=== PATIENT | male | born 1975 ===

== ENCOUNTER 2020-03-10 14:53 | Outpatient (REF) | payer OTHER, SELFPAY ==
--- NOTE | 2020-03-10 15:53 | MHC.AU.P13 ---
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 Patient is nonverbal. He was accompanied by a staff member today. Has hearing been tested previously?: Yes Previous Hearing Test Results: [facility] – [place], 10/16/18- Borderline normal hearing levels 250-1000 Hz, sloping to a moderate sensorineural high-frequency hearing loss bilaterally. Ear History: History of Ear Wax Buildup: Both Ears Medical History: Medical History: Developmental Disorder/Delay Diabetes Heart Problems Allergies: Seasonal allergies, scallops/shellfish Otoscopy: Right Ear: Unremarkable Left Ear: Unremarkable Tympanometry: Right Ear: Normal Middle Ear System (Type A) Left Ear: Normal Middle Ear System (Type A) Otoacoustic Emissions Frequency Range Used: 1962-9049 Hz Right Ear Results: Reduced Emissions Absent Emissions (Other): Patient breathing heavily during OAE testing, causing noise interference. Analysis: Reduced/Absent emissions suggest cochlear dysfunction High noise floor present due to movement/vocalizations Left Ear Results: Reduced Emissions Absent Emissions Other : Patient breathing heavily during OAE testing, causing noise interference. Analysis: Reduced/Absent emissions suggest cochlear dysfunction High noise floor present due to movement/vocalizations Hearing Evaluation: Transducer(s) Used: Insert Earphones Soundfield Method: Visual Reinforcement Audiometry (VRA) Stimuli Used: FRESH Noise Soundfield (At Least the Better Ear): Description of Hearing: Responses in the normal range at 500 Hz, and in the mild hearing loss range from 1138-8800 Hz for at least the better ear. Attempted with insert headphones initially, but patient could not be conditioned to VRA under headphones. Speech Awareness Threshold (SAT): Soundfield (At Least the Better Ear): 20 dBHL for at least the better ear Comparison: Compared to the most recent evaluation: Hearing is stable. Recommendations: Recommendations: Audiological re-evaluation in one year. Diagnosis: Primary Diagnosis: H90.3 Bilateral Sensorineural Hearing Loss Services Performed: Services Performed: Visual Reinforcement Audiometry (CPT 31434) Diagnostic Otoacoustic Emissions (CPT 10753, 26+TC) Tympanometry (CPT 85512) Signature: Provider: Ias Jacobs, CCC-A
== END 2020-03-10 14:54 | disposition home or self-care (01) ==
LOC: HO.SH 14:53
PROVIDERS: PCP Internal Medicine Geriatric Medicine; Visit Provider Internal Medicine Geriatric Medicine
DX: H90.3 Sensorineural hearing loss, bilateral (principal)
CPT/HCPCS: 92567; 92579; 92588

== ENCOUNTER 2020-03-14 15:46 | Outpatient (REF) | payer OTHER, SELFPAY ==
--- NOTE | 2020-03-14 16:01 | XR_ITS ---
EXAMINATION: XR CHEST CLINICAL INFORMATION: Cough. COMPARISON: Chest x-ray 02/25/2020 TECHNIQUE: 2 views of the chest were obtained. FINDINGS: No significant abnormality is noted involving the heart, lungs, mediastinum, bony thorax or soft tissues. IMPRESSION: Unremarkable examination.
== END 2020-03-14 15:47 | disposition home or self-care (01) ==
LOC: HO.XRAY 15:46
PROVIDERS: PCP Internal Medicine; Visit Provider Internal Medicine
DX: R05 Cough (principal)
CPT/HCPCS: 71046

== ENCOUNTER → 2020-04-13 15:32 | Outpatient (BNVA) | payer OTHER, SELFPAY | PROVIDERS: PCP Internal Medicine; Referring Provider Internal Medicine; Visit Provider Hospitalist | DX: Z76.89 Persons encountering health services in other specified circumstances (principal) ==

== ENCOUNTER 2020-05-19 07:46 | Outpatient (REF) | payer OTHER, SELFPAY ==
[2020-05-19 08:17] LABS: MANUAL DIFF FLAG NO
[2020-05-19 08:22] LABS: Basophils Percent Auto 0.8 % (0-2); Eosinophils Absolute Auto 0.2 X10*3/uL (0.0-0.4); Eosinophils Percent Auto 3.5 % (0-4); Hemoglobin 15.4 g/dl (14.0-18.0); Imm Gran Abs Auto 0.01 X10*3/uL (0.00-0.03); Imm Gran Pct Auto 0.2 % (0.0-0.4); Lymphocytes Absolute Auto 2.1 X10*3/uL (1.2-4.9); Lymphocytes Percent Auto 42.5 % (20-40); Mean Corpuscular HGB Conc 33.5 g/dl (31.0-36.0); Mean Corpuscular Hemoglobin 30.2 pg (27.0-33.0); Mean Corpuscular Volume 90.2 fL (80-98); Mean Platelet Volume 9.9 fL (9.4-12.4); Monocytes Absolute Auto 0.6 X10*3/uL (0.1-1.2); Monocytes Percent Auto 11.5 % (2-11); Neutrophils Percent Auto 41.5 % (45-73); Platelet Count 189 X10*3/uL (160-400); Red Cell Distribution Width 12.8 % (11.0-16.0); White Blood Count 4.9 X10*3/uL (4.8-10.8)
[2020-05-19 09:09] LABS: Alanine Aminotransferase 31 U/L (0-40); Albumin Level 4.5 g/dL (3.5-5.0); Alkaline Phosphatase 59 U/L (39-117); Anion Gap 12 (12-20); Aspartate Amino Transferase 23 U/L (5-37); Bilirubin Total 1.1 mg/dL (0.0-1.0); Blood Urea Nitrogen 17 mg/dL (9-16); Calcium 8.9 mg/dL (8.4-10.2); Carbon Dioxide 25 mmol/L (22-29); Chloride 104 mmol/L (96-108); Cholesterol 150 mg/dL; Estimated Glomerular Filt Rate > 60; Glucose Fasting 116 mg/dL (60-99); HDL Cholesterol 54 mg/dL; LDL Cholesterol Calculated 76 mg/dl; Sodium 137 mmol/L (135-145); Total Protein 7.1 g/dL (6.5-8.0); Triglycerides 103 mg/dL
--- NOTE | 2020-05-19 10:15 | XR_ITS ---
EXAMINATION: XR CHEST CLINICAL INFORMATION: Cough. COMPARISON: None TECHNIQUE: 2 views of the chest were obtained. FINDINGS: No significant abnormality is noted involving the heart, lungs, mediastinum, bony thorax or soft tissues. XR/XR chest 2V IMPRESSION: Unremarkable chest examination.
== END 2020-05-19 07:47 | disposition home or self-care (01) ==
LOC: HO.LAB 07:46
PROVIDERS: Absent Provider Hospitalist; PCP Internal Medicine; Visit Provider Internal Medicine
DX: R05 Cough (principal); E11.9 Type 2 diabetes mellitus without complications; E78.5 Hyperlipidemia, unspecified
CPT/HCPCS: 36415; 71046; 80053; 80061; 85025; 99212

== ENCOUNTER → 2020-06-09 09:10 | Outpatient (BNVA) | payer OTHER, SELFPAY | PROVIDERS: PCP Internal Medicine; Visit Provider Hospitalist | DX: R05 Cough (principal); J30.1 Allergic rhinitis due to pollen; J45.40 Moderate persistent asthma, uncomplicated | CPT/HCPCS: 99212 ==

== ENCOUNTER → 2020-06-23 14:50 | Outpatient (BNVA) | payer OTHER, SELFPAY | PROVIDERS: PCP Internal Medicine; Visit Provider Internal Medicine Pulmonary Disease | DX: J20.9 Acute bronchitis, unspecified (principal); J42 Unspecified chronic bronchitis | CPT/HCPCS: 99212 ==

== ENCOUNTER 2020-08-07 10:22 | Outpatient (REF) | payer OTHER, SELFPAY ==
--- NOTE | ~2020-08-07 | XR_ITS ---
EXAMINATION: XR CHEST CLINICAL INFORMATION: Moderate persistent asthma. COMPARISON: None TECHNIQUE: 2 views of the chest were obtained. FINDINGS: No significant abnormality is noted involving the heart, lungs, mediastinum, bony thorax or soft tissues. XR/XR chest 2V IMPRESSION: Unremarkable chest examination.
== END 2020-08-07 10:23 | disposition home or self-care (01) ==
LOC: HO.XRAY 10:22
PROVIDERS: PCP Internal Medicine; Visit Provider Hospitalist
DX: J45.40 Moderate persistent asthma, uncomplicated (principal); R05 Cough
CPT/HCPCS: 71046; 99212

== ENCOUNTER → 2020-08-23 10:36 | Outpatient (BNVA) | payer OTHER, SELFPAY | PROVIDERS: PCP Internal Medicine; Visit Provider Hospitalist | DX: J30.1 Allergic rhinitis due to pollen (principal); J45.40 Moderate persistent asthma, uncomplicated; R05 Cough | CPT/HCPCS: 99212 ==

== ENCOUNTER 2020-09-22 07:34 | Outpatient (REF) | payer OTHER, SELFPAY ==
[2020-09-22 09:06] LABS: Alanine Aminotransferase 20 U/L (0-40); Albumin Level 4.2 g/dL (3.5-5.0); Alkaline Phosphatase 52 U/L (39-117); Anion Gap 12 (12-20); Aspartate Amino Transferase 14 U/L (5-37); Bilirubin Total 1.8 mg/dL (0.0-1.0); Blood Urea Nitrogen 16 mg/dL (9-16); Calcium 8.8 mg/dL (8.4-10.2); Carbon Dioxide 23 mmol/L (22-29); Chloride 107 mmol/L (96-108); Cholesterol 149 mg/dL; Estimated Glomerular Filt Rate > 60; Glucose Fasting 121 mg/dL (60-99); HDL Cholesterol 59 mg/dL; LDL Cholesterol Calculated 58 mg/dl; Potassium 3.4 mmol/L (3.3-5.1); Sodium 139 mmol/L (135-145); Total Protein 6.6 g/dL (6.5-8.0); Triglycerides 163 mg/dL
== END 2020-09-22 07:35 | disposition home or self-care (01) ==
LOC: HO.LAB 07:34
PROVIDERS: PCP Internal Medicine; Visit Provider Internal Medicine
DX: E11.9 Type 2 diabetes mellitus without complications (principal); E78.5 Hyperlipidemia, unspecified
CPT/HCPCS: 36415; 80053; 80061

== ENCOUNTER → 2020-09-28 10:48 | Outpatient (BNVA) | payer OTHER, SELFPAY | PROVIDERS: PCP Internal Medicine; Visit Provider Hospitalist | DX: R05 Cough (principal); J45.40 Moderate persistent asthma, uncomplicated; J30.1 Allergic rhinitis due to pollen | CPT/HCPCS: 99212 ==

== ENCOUNTER 2020-10-31 08:43 | Outpatient (REF) | payer OTHER, SELFPAY ==
[2020-10-31 09:34] LABS: Hematocrit 44.8 % (42-52); Hemoglobin 14.9 g/dl (14.0-18.0); Mean Corpuscular HGB Conc 33.3 g/dl (31.0-36.0); Mean Corpuscular Hemoglobin 30.2 pg (27.0-33.0); Mean Corpuscular Volume 90.9 fL (80-98); Mean Platelet Volume 10.4 fL (9.4-12.4); Platelet Count 167 X10*3/uL (160-400); Red Blood Count 4.93 X10*6/uL (4.60-5.80); White Blood Count 5.2 X10*3/uL (4.8-10.8)
[2020-10-31 09:56] LABS: Alanine Aminotransferase 34 U/L (0-40); Albumin Level 4.2 g/dL (3.5-5.0); Alkaline Phosphatase 54 U/L (39-117); Anion Gap 13 (12-20); Aspartate Amino Transferase 20 U/L (5-37); Bilirubin Total 0.7 mg/dL (0.0-1.0); Blood Urea Nitrogen 19 mg/dL (9-16); Calcium 9.5 mg/dL (8.4-10.2); Carbon Dioxide 23 mmol/L (22-29); Chloride 109 mmol/L (96-108); Cholesterol 160 mg/dL; Estimated Glomerular Filt Rate > 60; Glucose Fasting 92 mg/dL (60-99); HDL Cholesterol 55 mg/dL; LDL Cholesterol Calculated 86 mg/dl; Potassium 4.1 mmol/L (3.3-5.1); Sodium 141 mmol/L (135-145); Total Protein 6.6 g/dL (6.5-8.0); Triglycerides 95 mg/dL
== END 2020-10-31 08:44 | disposition home or self-care (01) ==
LOC: HO.LAB 08:43
PROVIDERS: PCP Internal Medicine; Visit Provider Physician Assistant
DX: I10 Essential (primary) hypertension (principal); R51.9 Headache, unspecified; G89.29 Other chronic pain; E11.9 Type 2 diabetes mellitus without complications; E78.5 Hyperlipidemia, unspecified
CPT/HCPCS: 36415; 80053; 80061; 85027

== ENCOUNTER → 2020-12-26 13:03 | Outpatient (BNVA) | payer OTHER, SELFPAY | PROVIDERS: PCP Internal Medicine; Visit Provider Hospitalist | DX: J30.1 Allergic rhinitis due to pollen (principal); J45.50 Severe persistent asthma, uncomplicated | CPT/HCPCS: 99212 ==

== ENCOUNTER → 2021-01-25 09:25 | Outpatient (REF) | payer OTHER, SELFPAY ==
--- NOTE | 2021-01-25 09:30 | CA_ITS ---
Transthoracic Echocardiogram Patient (Last, First, Middle): Aiden Kuhn A Gender: Male Date of : 1975 Age: 45 Procedure Date: 01/25/2021 Procedure Type: Transthoracic Echocardiogram Location: OP Height: 157. 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 Low normal LV systolic function with LVEF of 50-55% 2. Normal cardiac valvular Doppler 3. Normal RV systolic pressure 4. No pericardial effusion Findings Left Ventricle Normal left ventricular cavity size. There is normal left ventricular wall thickness. The left ventricular systolic function is low normal. The visually estimated ejection fraction is between 50-55%. Diastolic function is normal for age. Right Ventricle Normal right ventricular cavity size and systolic function. Atria Both atria are normal in size. Interatrial shunt cannot be excluded. Aortic Valve The aortic valve structure and function is likely normal. There is no aortic valve stenosis. There is no aortic valve regurgitation. Mitral Valve Normal mitral valve structure and function. There is trace mitral valve regurgitation. There is no mitral valve stenosis. Pulmonic Valve The pulmonic valve was not well visualized. Tricuspid Valve Likely normal tricuspid valve structure and function. There is trace tricuspid valve regurgitation. The right ventricular systolic pressure is normal. The right ventricular systolic pressure is 18 mmHg. Normal right atrial pressure. Great Vessels All visible segments of the aorta are normal in size. The pulmonary artery was not well visualized. Venous The inferior vena cava is normal in size and collapses greater than 50% with inspiration. Pericardium/Pleural There is no evidence of pericardial effusion. Prior Study Comparison No significant change compared to prior study dated: 01/04/2020. Measurements 2D Linear Measurements IVSd: 0.86 0.6-0.9/0.6-1.0 cm LVIDd: 4.10 3.9-5.3/4.2-5.9 cm LVIDd Index: 2.65 2.4-3.2/2.2-3.1 cm/m2 LVIDs: 2.82 2.0-3.6 cm LVPWd: 0.82 0.7-1.1 cm Ao Root: 2.80 2.1-3.5 cm LA Diam: 2.80 2.7-3.8/3.0-4.0 cm LAIDs Index: 1.81 1.5-2.3 cm/m2 LV Mass: 129.36 67-162/88-224 g LV Mass Index: 83.46 43-95/49-115 g/m2 LVOT Diam: 1.90 3.0+(-)1.3 cm 2D Systolic Function EF 4C: 51.30 >55% EF 2C: 61.30 >55% EF BiP: 57.30 >55% Mitral Valve MV Pk E: 0.54 MV PK A: 0.56 MV Decel Time: 206.00 E/A: 1.00 E'Lateral: 7.51 E'Medial: 7.72 E/E' Med: 6.90 E/E' Lat: 7.10 PHT: 60.00 MVA PHT: 3.67 Decel [place]: 2.60 Aortic Valve AoV Pk Bal: 0.98 AoV Pk Grad: 4.00 LVOT LVOT Pk Bal: 0.85 LVOT Mn Bal: 0.56 LVOT VTI: 0.15 LVOT Pk Grad: 3.00 LVOT Mn Grad: 2.00 LVOT Diam: 1.90 LVOT Area: 2.84 Diastolic Function MV Pk E: 0.54 MV Pk A: 0.56 E/A: 1.00 E'Medial: 7.72 E/E' Med: 6.90 E' Laterial: 7.51 E/E' Lat: 7.10 Right Ventricle TAPSE (mm): 1.95 Tricuspid Valve TR Pk Bal: 1.93 TR Pk Grad: 15.00 RA Press: 3.00 RVSP: 18.00 Great Vessels Aorta Ao Root-2D: 2.80 2.0-3.7 cm Ao Asc: 2.90 2.1-3.4 cm Updated in Other Vendor System with Status of Final Ousmane Ye MD electronically signed on 01/25/2021 12:36:48 PM with status of Final
--- NOTE | 2021-01-25 09:33 | ECG_ITS ---
Hook-up date: 2021-01-25 10:52:00 Duration: 26:11:00 Test Indications: SINUS TACHYCARDIA, PVC'S Medications: [id number] QRS complexes * Ventricular ectopics which represent % of total QRS comp. 2 Supraventricular ectopics which represent <1 % of total QRS comp. * Paced QRS complexs which represent % of total QRS comp. VENTRICULAR ECTOPY * Isolated * Bigeminal Cycles * Couplets * Runs * Beats in Runs * Beats LONGEST at * BPM at :: -- * Beats FASTEST at * BPM at :: -- SUPRAVENTRICULAR ECTOPY 2 Isolated 0 Couplets 0 Runs 0 Beats in Runs * Beats LONGEST at * BPM at :: -- * Beats FASTEST at * BPM at :: -- HEART RATES 49 MIN at 22:33:23 2021-01-25 74 AVG 145 MAX at 10:54:27 2021-01-25 LONGEST RR 1.2560 secs at 08:01:06 2021-01-26 S-T LEVELS Channel 1 - 128 mm at 10:52:00 2021-01-25 - 128 mm at 10:52:00 2021-01-25 Channel 2 - 128 mm at 10:52:00 2021-01-25 - 128 mm at 10:52:00 2021-01-25 Channel 3 - 128 mm at 03:01:11 -- - 128 mm at 03:01:11 Underlying rhythm is sinus; Average ventricular rate 74/min; range 49-145/min; About 10% of the time, rate >100/min; No significant ectopy or other arrhythmias. Referred By: René Mccarthy Overread By: RENÉ MCCARTHY
== END ==
LOC: HO.CARD 09:25
PROVIDERS: Visit Provider Internal Medicine
DX: R00.0 Tachycardia, unspecified (principal); I49.3 Ventricular premature depolarization
CPT/HCPCS: 93225; 93226; 93306

== ENCOUNTER → 2021-02-01 07:53 | Outpatient (BNVA) | payer OTHER, SELFPAY | PROVIDERS: PCP Internal Medicine; Visit Provider Internal Medicine | DX: I49.3 Ventricular premature depolarization (principal); I42.9 Cardiomyopathy, unspecified; R00.0 Tachycardia, unspecified; E11.8 Type 2 diabetes mellitus with unspecified complications | CPT/HCPCS: 93005; 99212 ==

== ENCOUNTER → 2021-04-02 08:32 | Outpatient (BNVA) | payer OTHER, SELFPAY | PROVIDERS: PCP Internal Medicine; Visit Provider Hospitalist | DX: J30.1 Allergic rhinitis due to pollen (principal); J45.50 Severe persistent asthma, uncomplicated | CPT/HCPCS: 90686; 99212 ==

== ENCOUNTER 2021-05-22 09:30 | Outpatient (REF) | payer OTHER, SELFPAY ==
--- NOTE | 2021-05-22 17:08 | MHC.AU.AEV ---
Adult Audiological Evaluation Date of Visit: 05/22/21 Reason for Appointment: Annual audiological re-evaluation as required by Mr. Kuhn care program and DDS. Mr. Kuhn is non-verbal and accompanied by his care staff Karen. She denies any concerns for his hearing. Previous testing has suggested a mild high-frequency hearing loss. Does patient feel they have a hearing loss?: No Has hearing been tested previously?: Yes Previous Hearing Test Results: [facility] [place] - Soundfield responses in the normal hearing range at 500 Hz and in the mild hearing loss range from 4531-6916 Hz for at least the better ear. Reduced OAEs bilaterally. Normal middle-ear function bilaterally. [facility] [place]16[place] - Borderline normal hearing from 250-100 Hz sloping to a moderate high-frequency sensorineural hearing loss bilaterally. Reduced OAEs bilaterally. Normal middle-ear function bilaterally. Medical History: Medical History: Developmental Disorder/Delay, Diabetes, Heart Problems Medical History: Some recent congestion, asthma, high cholesterol, eye surgery Allergies: Seasonal allergies, scallops/shellfish Medication List: See list Otoscopy: Right Ear: Partially occluded with cerumen Left Ear: Partially occluded with cerumen Tympanometry: Tympanometry performed due to: To assess integrity of the middle ear system Right Ear: Negative Middle Ear Pressure (Type C) Left Ear: Negative Middle Ear Pressure (Type C) Otoacoustic Emissions Frequency Range Used: 1.6-8 kHz Right Ear Results: Present 1600-200 Hz, reduced 6758-5916 Hz. Analysis: Reduced/Absent emissions suggest cochlear dysfunction Left Ear Results: Present 2000 Hz, Reduced 1600 & 3935-8772 Hz. Analysis: Reduced/Absent emissions suggest cochlear dysfunction Hearing Evaluation: Transducer(s) Used: Insert Earphones, Soundfield Method: Visual Reinforcement Audiometry (VRA) Stimuli Used: FRESH Noise, Warble Tones Soundfield (At Least the Better Ear): Description of Hearing: Normal hearing from 250-500 Hz, sloping to a mild hearing loss from 8952-1035 Hz for at least the better ear. Insert headphones were attempted but patient did not respond to stimuli while headphones were on. Speech Awareness Threshold (SAT): Soundfield: 15 dBHL for at least the better ear. Comparison: Compared to the most recent evaluation: Hearing is stable. Interpretation of Results: Negative middle-ear pressure is likely related to recent congestion. Recommendations: Audiological re-evaluation in one year. Amplification is not warranted at this time. Diagnosis: Primary Diagnosis: H91.93 Unspecified Hearing Loss, Bilateral Secondary Diagnosis: H69.93 Unspecified Eustachian Tube Dysfunction, Bilateral Services Performed: Visual Reinforcement Audiometry (CPT 07293) Diagnostic Otoacoustic Emissions (CPT 41940, 26+TC) Tympanometry (CPT 68355) Signature: Provider: Isa Jacobs, CCC-A
== END 2021-05-22 09:31 | disposition home or self-care (01) ==
LOC: HO.SH 09:30
PROVIDERS: Visit Provider Internal Medicine
DX: H91.93 Unspecified hearing loss, bilateral (principal); H69.93 Unspecified Eustachian tube disorder, bilateral
CPT/HCPCS: 92567; 92579; 92588

== ENCOUNTER → 2021-10-05 09:14 | Outpatient (BNVA) | payer OTHER, SELFPAY | PROVIDERS: PCP Internal Medicine; Visit Provider Hospitalist | DX: Z23 Encounter for immunization (principal); J30.1 Allergic rhinitis due to pollen; J45.50 Severe persistent asthma, uncomplicated | CPT/HCPCS: 90471; 90732; 99212 ==

== ENCOUNTER 2021-11-24 08:22 | Outpatient (REF) | payer OTHER, SELFPAY ==
[2021-11-24 08:31] LABS: MANUAL DIFF FLAG NO
[2021-11-24 08:52] LABS: Basophils Percent Auto 0.6 % (0-2); Eosinophils Absolute Auto 0.1 X10*3/uL (0.0-0.4); Hematocrit 44.7 % (42.0-52.0); Imm Gran Abs Auto 0.01 X10*3/uL (0.00-0.03); Imm Gran Pct Auto 0.2 % (0.0-0.4); Lymphocytes Absolute Auto 2.2 X10*3/uL (1.2-4.9); Lymphocytes Percent Auto 40.6 % (20-40); Mean Corpuscular HGB Conc 33.6 g/dl (31.0-36.0); Mean Corpuscular Hemoglobin 29.6 pg (27.0-33.0); Mean Corpuscular Volume 88.3 fL (80.0-98.0); Monocytes Absolute Auto 0.7 X10*3/uL (0.1-1.2); Monocytes Percent Auto 12.5 % (2-11); Neutrophils Absolute Auto 2.4 x10*3/uL (2.0-8.3); Neutrophils Percent Auto 44.1 % (45-73); Platelet Count 196 X10*3/uL (160-400); Red Blood Count 5.06 X10*6/uL (4.60-5.80); Red Cell Distribution Width 13.3 % (11.0-16.0); White Blood Count 5.5 X10*3/uL (4.8-10.8)
[2021-11-24 09:33] LABS: Erythrocyte Sedimentation Rate 5 MM/HR (0-15)
[2021-11-26 22:38] LABS: Immunoglobulin E 60 kU/L (<OR=114)
[2021-12-01 15:16] LABS: Asperg fumigatus Precip Abs NEGATIVE (NEGATIVE); Micropoly faeni Abs NEGATIVE (NEGATIVE); Pigeon serum Abs NEGATIVE (NEGATIVE); Saccharo pora viridis Abs NEGATIVE (NEGATIVE); Thermo candidus Abs NEGATIVE (NEGATIVE); Thermoa vulgaris #1 NEGATIVE (NEGATIVE)
== END 2021-11-24 08:23 | disposition home or self-care (01) ==
LOC: HO.LAB 08:22
PROVIDERS: Visit Provider Hospitalist
DX: J45.909 Unspecified asthma, uncomplicated (principal); J30.1 Allergic rhinitis due to pollen; R91.8 Other nonspecific abnormal finding of lung field
CPT/HCPCS: 36415; 82785; 85025; 85652; 86331; 86606; 86609

== ENCOUNTER → 2022-02-05 08:01 | Outpatient (BNVA) | payer OTHER, SELFPAY | PROVIDERS: PCP Internal Medicine; Referring Provider Internal Medicine; Visit Provider Internal Medicine | DX: R00.0 Tachycardia, unspecified (principal); I42.9 Cardiomyopathy, unspecified; I49.3 Ventricular premature depolarization; E11.8 Type 2 diabetes mellitus with unspecified complications | CPT/HCPCS: 93005; 99212 ==

== ENCOUNTER → 2022-02-08 09:23 | Outpatient (BNVA) | payer OTHER, SELFPAY | PROVIDERS: PCP Internal Medicine; Visit Provider Hospitalist | DX: J45.50 Severe persistent asthma, uncomplicated (principal); J30.1 Allergic rhinitis due to pollen | CPT/HCPCS: 99212 ==

== ENCOUNTER 2022-06-06 13:43 | Outpatient (REF) | payer OTHER, SELFPAY | END 2022-06-06 13:44 | disposition home or self-care (01) | LOC: HO.SH 13:43 | PROVIDERS: Visit Provider Internal Medicine | DX: Z01.118 Encounter for examination of ears and hearing with other abnormal findings (principal); H90.3 Sensorineural hearing loss, bilateral | CPT/HCPCS: 92567; 92579; 92588 ==

== ENCOUNTER → 2022-08-02 09:20 | Outpatient (BNVA) | payer OTHER, SELFPAY | PROVIDERS: PCP Physician Assistant; Visit Provider Hospitalist | DX: J45.50 Severe persistent asthma, uncomplicated (principal); J30.1 Allergic rhinitis due to pollen; Z79.899 Other long term (current) drug therapy | CPT/HCPCS: 99212 ==

== ENCOUNTER → 2022-09-18 09:02 | Outpatient (BNVA) | payer OTHER, SELFPAY | PROVIDERS: PCP Internal Medicine; Visit Provider Nurse Practitioner Family | DX: Z12.11 Encounter for screening for malignant neoplasm of colon (principal) | CPT/HCPCS: 99202 ==

== ENCOUNTER 2022-10-02 07:43 | Outpatient (REF) | payer OTHER, SELFPAY ==
[2022-10-02 08:47] LABS: Alanine Aminotransferase 33 U/L (0-40); Albumin Level 4.1 g/dL (3.5-5.0); Alkaline Phosphatase 63 U/L (39-117); Anion Gap 9 (12-20); Aspartate Amino Transferase 23 U/L (5-37); Bilirubin Total 0.7 mg/dL (0.0-1.0); Blood Urea Nitrogen 14 mg/dL (9-16); Calcium 9.2 mg/dL (8.4-10.2); Carbon Dioxide 26 mmol/L (22-29); Chloride 110 mmol/L (96-108); Cholesterol 147 mg/dL; Estimated Glomerular Filt Rate > 60; Glucose Fasting 107 mg/dL (60-99); HDL Cholesterol 50 mg/dL; LDL Cholesterol Calculated 84 mg/dl; Sodium 141 mmol/L (135-145); Total Protein 6.5 g/dL (6.5-8.0); Triglycerides 68 mg/dL
[2022-10-04 12:09] LABS: NT-proBNP 38 pg/mL
== END 2022-10-02 07:44 | disposition home or self-care (01) ==
LOC: HO.LAB 07:43
PROVIDERS: PCP Internal Medicine; Visit Provider Internal Medicine
DX: E78.5 Hyperlipidemia, unspecified (principal); E11.8 Type 2 diabetes mellitus with unspecified complications; I42.9 Cardiomyopathy, unspecified
CPT/HCPCS: 36415; 80053; 80061; 83880

== ENCOUNTER → 2023-01-24 08:51 | Outpatient (REF) | payer OTHER, SELFPAY ==
--- NOTE | 2023-01-24 08:55 | CA_ITS ---
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 Suspect mildly reduced LVEF, about 45-50%. - No obvious valvular pathology seen on this study. Findings Procedure Information The study quality is limited by the patients inability to tolerate the test. Left Ventricle Normal left ventricular cavity size. There is normal left ventricular wall thickness. Regional wall motion abnormalities can not be excluded due to suboptimal endocardial definition. There is mild global hypokinesis. Diastolic function is normal for age. Image quality limited and they are also foreshortened. Suspect mildly reduced LVEF, about 45-50%. Right Ventricle Normal right ventricular cavity size. There is low normal right ventricular systolic function. Atria Both atria are normal in size. Aortic Valve The aortic valve was not well visualized. There is no aortic valve stenosis. There is no aortic valve regurgitation. Mitral Valve The mitral valve appears normal. There is no mitral valve regurgitation. There is no mitral valve stenosis. Pulmonic Valve The pulmonic valve is likely normal. Tricuspid Valve There is no tricuspid valve regurgitation. Tricuspid regurgitation envelope is inadequate for calculation of right ventricular systolic pressure. Great Vessels The aorta was not well visualized. Venous The inferior vena cava is normal in size and collapses greater than 50% with inspiration. Pericardium/Pleural There is no evidence of pericardial effusion. Prior Study Comparison No significant change compared to prior study dated: 01/25/2021. Recommendations, Care & Conclusions No obvious valvular pathology seen on this study. Measurements 2D Linear Measurements IVSd: 0.96 0.6-0.9/0.6-1.0 cm LVIDd: 3.97 3.9-5.3/4.2-5.9 cm LVIDd Index: 2.59 2.4-3.2/2.2-3.1 cm/m2 LVIDs: 3.06 2.0-3.6 cm LVPWd: 0.56 0.7-1.1 cm LA Diam: 1.90 2.7-3.8/3.0-4.0 cm LAIDs Index: 1.24 1.5-2.3 cm/m2 LV Mass: 106.26 67-162/88-224 g LV Mass Index: 69.45 43-95/49-115 g/m2 LVOT Diam: 2.00 3.0+(-)1.3 cm Mitral Valve MV Pk E: 0.45 MV PK A: 0.40 MV Decel Time: 308.00 E/A: 1.10 E'Lateral: 10.30 E'Medial: 9.79 E/E' Med: 4.60 E/E' Lat: 4.40 PHT: 90.00 MVA PHT: 2.44 Decel [place]: 1.48 Aortic Valve AoV Pk Bal: 0.85 AoV Mn Bal: 0.56 AoV VTI: 0.19 AoV Pk Grad: 3.00 Aov Mn Grad: 1.00 DAWSON Cont.VTI: 1.93 LVOT LVOT Pk Bal: 0.55 LVOT Mn Bal: 0.35 LVOT VTI: 0.12 LVOT Pk Grad: 1.00 LVOT Mn Grad: 1.00 LVOT Diam: 2.00 LVOT Area: 3.14 Diastolic Function MV Pk E: 0.45 MV Pk A: 0.40 E/A: 1.10 E'Medial: 9.79 E/E' Med: 4.60 E' Laterial: 10.30 E/E' Lat: 4.40 Right Ventricle TAPSE (mm): 17.70 TVS' Bal: 9.25 Tricuspid Valve RA Press: 3.00 Great Vessels Aorta Sinus of Valsalva: 2.79 2.0-3.5 cm Updated in Other Vendor System with Status of Final Andrei Roper MD electronically signed on 01/26/2023 11:35:06 AM with status of Final
--- NOTE | 2023-01-24 08:55 | HM_ITS ---
Conclusion: 1. Patient was monitored for total period of 3 days 2. Baseline was normal sinus rhythm with average heart of 74 beats per minute 3. No significant arrhythmias noted 4. No significant pauses noted 5. No patient reported events MTDD
== END ==
LOC: HO.CARD 08:51
PROVIDERS: PCP Internal Medicine; Visit Provider Internal Medicine
DX: I49.3 Ventricular premature depolarization (principal); I42.9 Cardiomyopathy, unspecified; R00.0 Tachycardia, unspecified
CPT/HCPCS: 93242; 93306

== ENCOUNTER → 2023-01-24 08:55 | Outpatient (BNV) | payer OTHER, SELFPAY | PROVIDERS: PCP Internal Medicine; Visit Provider Internal Medicine | DX: R00.0 Tachycardia, unspecified (principal) | CPT/HCPCS: 93244; 93306 ==

== ENCOUNTER 2023-02-05 09:10 | Outpatient (AMB) | payer OTHER, SELFPAY ==
--- NOTE | 2023-02-05 09:21 | A.OFFPC_ITS ---
Vital Signs 02/05/23 09:22 Height 5 ft 1 in Weight 11 lb BMI 2.1 BP 118/70 Blood Pressure Location Lt brachial Position Sitting Intake Visit Reasons: dm Intake Note: Patient here for a follow up DM Spd Tech Required: No Accompanied by: Staff Allergies shellfish derived [SHELLFISH DERIVED] Allergy (Severe, Verified 02/05/23 09:34) ANAPHYLAXIS metformin Allergy (Intermediate, Verified 02/05/23 09:34) Diarrhea pollen extracts [POLLEN] Allergy (Intermediate, Verified 02/05/23 09:34) PER ALLERGY TESTING scallops [SCALLOPS] Allergy (Intermediate, Verified 02/05/23 09:34) PER ALLERGY TESTING tree and shrub pollen [TREE] Allergy (Intermediate, Verified 02/05/23 09:34) PER ALLERGY TESTING Medication List - Last Reconciled 02/05/23 by Sybil Cruz MD acetaminophen (Tylenol Extra Strength) 1,000 mg (2 x 500 mg) PO Q6H PRN 7 days [adult pull-ups As directed] alcohol swabs (Alcohol Prep Pads) 1 pad topical DAILY arformoterol (Brovana) 15 mcg (2 mL) inhalation BID azithromycin (Zithromax Z-Jan) 250 mg PO DAILY 5 days bisacodyl (Dulcolax (bisacodyl)) 10 mg (2 x 5 mg) PO BEDTIME bisacodyl (Dulcolax (bisacodyl)) 20 mg (4 x 5 mg) PO ONCE 1 day blood sugar diagnostic As directed blood sugar diagnostic (FreeStyle Lite Strips) 1 strip miscellaneous BID blood-glucose meter (FreeStyle Lite Meter kit) As directed budesonide 0.5 mg (2 mL) inhalation BID cetirizine (Zyrtec) 10 mg PO DAILY 30 days dextromethorphan-guaifenesin 30-600 mg (Mucinex DM) 1 tab PO BID PRN 30 days diaper,brief,adult,disposable SIZE MEDIUM diazepam (Valium) 10 mg PO BID PRN dicyclomine 20 mg PO .every 8 hours PRN 30 days Dupixent Syringe (dupilumab) 300 mg (2 mL) subcut Q2W NS fluticasone propionate 50 mcg/actuation 2 sprays intranasal DAILY PRN lancets As directed lancets (Pure Comfort Safety Lancets) 30 gauge miscellaneous BID lancets (Pure Comfort Safety Lancets) 28 gauge miscellaneous DIRECTED 90 days latanoprost 0.005% 1 drp ophthalmic (eye) BEDTIME metformin ER 500 mg PO QAM 30 days metoprolol succinate ER 25 mg PO QAM miscellaneous medical supply 1 ea miscellaneous DAILY 30 days montelukast 10 mg PO QPM nebulizer and compressor As directed polyethylene glycol 3350 (Miralax) 238 grams PO ONCE 1 day pravastatin 80 mg PO BEDTIME 90 days prednisolone acetate 1% drps ophthalmic (eye) prednisone 60 mg (3 x 20 mg) PO DAILY quetiapine (Seroquel) 50 mg PO BEDTIME risperidone 2 mg PO BEDTIME trazodone 50 mg PO .EVERY MORNING trazodone 150 mg PO BEDTIME Tobacco use date assessed: 10/02/22 Dental Screening Dental Screen Date: 02/05/23 Did you have a dental visit in the last 12 months?: Yes Did you have a dental problem in the last 6 months where you did not have access to dental care?: No Was dental information given to patient?: Patient has dentist HPI HPI Comments History of Present Illness Details This is 47-year-old male with intellectual disability, diabetes mellitus type 2, moderate asthma and hyperlipidemia that comes today accompanied by staff member from his home which is the historian due to patient being nonverbal. Staff member complains occasional abdominal pain associated with occasional diarrhea that has been present for over 3 months most likely due to metformin. I will change metformin to Actos. A1c within goal. Moderate asthma is follow by pulmonology and has been improving with Dupixent. Last LDL was not on goal and I will change pravastatin 80 mg to atorvastatin 40 mg. No other acute complaints. [facility] Medical History (Updated 02/05/23 @ 09:50 by Sybil Cruz MD) Allergic rhinitis due to pollen Asthma Chronic cough Developmental delay, severe Diabetes mellitus Essential hypertension Hearing loss Insomnia Mixed stress and urge urinary incontinence Moderate asthma Physical exam Pure hypercholesterolemia Sinus tachycardia Surgical History History of circumcision History of surgery on arm Family History Mother No problems noted. Father Medical history unknown Maternal Uncle Diabetes Social History Housing: Other Alcohol intake: never Patient Tobacco Use Status: Never used Tobacco e-Cigarette/Vaping Use: Never Used Second Hand Smoke Exposure: No service: No Current occupational status: disabled Cognitive needs: No Hearing needs: No Vision needs: No Questionnaire Thrive Questionnaire Date Thrive assessed: 10/02/22 DONOVAN-7 AMB Questionnaire DONOVAN-7 Date DONOVAN - 7 assessed: 10/02/22 Source: Developed by Drs. Carlos Collado, aNtaliia Cano, Nilesh Rich and colleagues, with an educational rain from [employer]. Review of Systems Const All systems reviewed & are unremarkable except as noted in HPI and below Eyes Reports no additional complaints, Denies change in vision and Denies other visual disturbances Card Denies chest pain at rest, Denies chest pain with activity, Denies edema, Denies irregular heart rhythm, Denies claudication, Denies dyspnea, Denies dyspnea on exertion, Denies orthopnea, Denies paroxysmal nocturnal dyspnea and Denies slow heart rate Resp Denies cough, Denies dyspnea and Denies dyspnea on exertion GI Denies abdominal pain, Denies change in bowel habits, Denies excessive flatus, Denies nausea and Denies vomiting Denies urinary hesitancy, Denies urinary incontinence and Denies urinary urgency Musc Denies abnormal gait, Denies atrophy, Denies deformity and Denies limited range of motion Skin/Breast Denies bleeding lesions, Denies changing lesions and Denies rash Neuro Denies abnormal gait and Denies lack of coordination Physical exam (Primary Care) Vital Signs: Last Vital Signs BP 118/70 02/05/23 09:22 BMI result Body Mass Index 2.1 Tobacco/Smoking Status: Tobacco use Status Tobacco use date assessed 10/02/22 02/05/23 09:22 Patient Tobacco Use Status Never used Tobacco 02/05/23 09:22 e-Cigarette/Vaping Use Never Used 02/05/23 09:22 Thrive Assessment: Date of Thrive Assessment Date Thrive assessed 10/02/22 02/05/23 09:22 Eyes General: appearance normal, both eyes and all related structures Eyelids: Yes eyelids normal Conjunctivae: conjunctivae normal Neck Neck: Yes normal visual inspection and Yes supple Resp Effort & Inspection: normal respiratory effort Auscultation: clear to auscultation bilaterally Cardio Jugular venous distension: no JVD Rate: regular rate Rhythm: regular rhythm Heart sounds: S1 normal heart sound present and S2 normal heart sound present GI Inspection: Yes normal to inspection Palpation (GI): Soft to palpation and nontender Auscultation: normal bowel sounds Extrem General: Yes full ROM Results AMB Hemoglobin A1c AMB Hemoglobin A1c 5.9 % Last Edit by GUI Cárdenas on 02/05/23 09:3 7 Assessment and Plan Assessment & Plan (1) Diabetes mellitus: Code(s): E11.9 - Type 2 diabetes mellitus without complications Qualifiers: Diabetes mellitus type: type 2 Diabetes mellitus salvage determiner insulin use: without salvage determiner use Diabetes mellitus complication status: without complication Qualified Code(s): E11.9 - Type 2 diabetes mellitus without complications Plan: Discontinue metformin. Start Actos 15 mg once a day. A1c goal is equal or less than 7%. (2) Moderate asthma: Code(s): J45.909 - Unspecified asthma, uncomplicated Qualifiers: Asthma persistence: persistent Asthma complication type: uncomplicated Qualified Code(s): J45.40 - Moderate persistent asthma, uncomplicated Plan: Use rescue inhaler as needed. Continue Dupixent. Follow-up with pulmonology. (3) Hyperlipidemia LDL goal <70: Code(s): E78.5 - Hyperlipidemia, unspecified Plan: Discontinue pravastatin. Start atorvastatin 40 mg. LDL goal should be less than 70. (4) Abdominal pain: Code(s): R10.9 - Unspecified abdominal pain Plan: Ultrasound of the abdomen ordered. Referred to Gastroenterology done. Orders: Orders US abdomen complete Today R10.9 - Unspecified abdominal pain Lipid Panel 4 Months E78.5 - Hyperlipidemia, unspecified Comprehensive [place]. Panel Fast 4 Months E11.8 - Type 2 diabetes mellitus with unspecified complications AMB Hemoglobin A1c Today E11.8 - Type 2 diabetes mellitus with unspecified complications Referrals Gastroenterology Referral R10.9 - Unspecified abdominal pain Medications: New atorvastatin 40 mg PO BEDTIME 90 days 90 tabs 1RF E78.5 - Hyperlipidemia, unspecified pioglitazone 15 mg PO DAILY 90 days 90 tabs 1RF E11.8 - Type 2 diabetes mellitus with unspecified complications Discontinued metformin ER Discontinued Reason: Patient Completed Course 500 mg PO QAM 30 days 30 tabs 6RF pravastatin Discontinued Reason: Patient Completed Course 80 mg PO BEDTIME 90 days 90 tabs 1RF E78.00 - Pure hypercholesterolemia, unspecified Coding Level of Care Code Est Pt Level 4 (25454) Diagnoses Diabetes mellitus E11.9 Diabetes mellitus type: type 2 Diabetes mellitus nursing home insulin use: without nursing home use Diabetes mellitus complication status: without complication Moderate asthma J45.40 Asthma persistence: persistent Asthma complication type: uncomplicated Hyperlipidemia LDL goal <70 E78.5 Abdominal pain R10.9 Time Spent (min) 22
[2023-02-05 09:22] VITALS: BP 118/70
== END 2023-02-05 09:52 | disposition home or self-care (01) ==
PROVIDERS: PCP Internal Medicine; Visit Provider Internal Medicine
DX: E11.9 Type 2 diabetes mellitus without complications (principal); J45.40 Moderate persistent asthma, uncomplicated; E78.5 Hyperlipidemia, unspecified; R10.9 Unspecified abdominal pain; E11.8 Type 2 diabetes mellitus with unspecified complications
CPT/HCPCS: 83036; 99214

== ENCOUNTER 2023-02-06 09:05 | Outpatient (AMB) | payer OTHER, SELFPAY ==
--- NOTE | 2023-02-06 09:07 | MHC.OFFVIS ---
Intake Vital Signs 02/06/23 09:08 Height 5 ft 1 in Weight 119 lb 14.903 oz BMI 22.7 BP 104/68 Blood Pressure Location Lt brachial Position Sitting Pulse 86 Intake Visit Reasons: 1 year follow up, after echo and holter Intake Note: 1 year follow up w/ EKG Public Health Assistant Required: No Accompanied by: staff Allergies shellfish derived [SHELLFISH DERIVED] Allergy (Severe, Verified 02/06/23 09:09) ANAPHYLAXIS metformin Allergy (Intermediate, Verified 02/06/23 09:09) Diarrhea pollen extracts [POLLEN] Allergy (Intermediate, Verified 02/06/23 09:09) PER ALLERGY TESTING scallops [SCALLOPS] Allergy (Intermediate, Verified 02/06/23 09:09) PER ALLERGY TESTING tree and shrub pollen [TREE] Allergy (Intermediate, Verified 02/06/23 09:09) PER ALLERGY TESTING Medication List - Last Reconciled 02/06/23 by Andrei Roper MD acetaminophen (Tylenol Extra Strength) 1,000 mg (2 x 500 mg) PO Q6H PRN 7 days [adult pull-ups As directed] alcohol swabs (Alcohol Prep Pads) 1 pad topical DAILY arformoterol (Brovana) 15 mcg (2 mL) inhalation BID blood sugar diagnostic As directed blood sugar diagnostic (FreeStyle Lite Strips) 1 strip miscellaneous BID blood-glucose meter (FreeStyle Lite Meter kit) As directed budesonide 0.5 mg (2 mL) inhalation BID cetirizine (Zyrtec) 10 mg PO DAILY 30 days dextromethorphan-guaifenesin 30-600 mg (Mucinex DM) 1 tab PO BID PRN 30 days diaper,brief,adult,disposable SIZE MEDIUM diazepam (Valium) 10 mg PO BID PRN dicyclomine 20 mg PO .every 8 hours PRN 30 days Dupixent Syringe (dupilumab) 300 mg (2 mL) subcut Q2W NS fluticasone propionate 50 mcg/actuation 2 sprays intranasal DAILY PRN ibuprofen mg PO lancets As directed lancets (Pure Comfort Safety Lancets) 30 gauge miscellaneous BID lancets (Pure Comfort Safety Lancets) 28 gauge miscellaneous DIRECTED 90 days latanoprost 0.005% 1 drp ophthalmic (eye) BEDTIME metformin 500 mg PO DAILY metoprolol succinate ER 25 mg PO QAM miscellaneous medical supply 1 ea miscellaneous DAILY 30 days montelukast 10 mg PO QPM nebulizer and compressor As directed pravastatin 40 mg PO BEDTIME prednisolone acetate 1% drps ophthalmic (eye) quetiapine (Seroquel) 50 mg PO BEDTIME risperidone 2 mg PO BEDTIME trazodone 50 mg PO .EVERY MORNING trazodone 150 mg PO BEDTIME HPI HPI Comments History of Present Illness Details Aiden returns for follow-up regarding sinus tachycardia and mild cardiomyopathy. In the past, EKG from primary care physician's office had shown sinus tachycardia. Patient himself has developmental disability. Hence no history from him. There is a certified recreational therapist who came for the appointment and she states that patient is doing very well. No cardiac symptoms at all. [facility] Medical History Allergic rhinitis due to pollen Asthma Chronic cough Developmental delay, severe Diabetes mellitus Essential hypertension Hearing loss Insomnia Mixed stress and urge urinary incontinence Moderate asthma Physical exam Pure hypercholesterolemia Sinus tachycardia Surgical History History of surgery on arm History of circumcision Family History Mother No problems noted. Father Medical history unknown Maternal Uncle Diabetes Social History Housing: Other Alcohol intake: never Patient Tobacco Use Status: Never used Tobacco e-Cigarette/Vaping Use: Never Used Second Hand Smoke Exposure: No service: No Current occupational status: disabled Cognitive needs: No Hearing needs: No Vision needs: No Review of Systems Const All systems reviewed & are unremarkable except as noted in HPI and below Reports as per HPI and Reports no additional complaints Eyes Reports as per HPI and Denies no additional complaints ENT Denies no additional complaints and Reports as per HPI Card Reports as per HPI, Reports no additional complaints, Denies acrocyanosis, Denies chest pain, Denies leg edema, Denies lightheadedness, Denies palpitations and Denies dyspnea Resp Reports as per HPI, Denies no additional complaints and Denies dyspnea GI Reports as per HPI and Denies no additional complaints Reports no additional complaints and Reports as per HPI Musc Reports no additional complaints and Reports as per HPI Skin/Breast Reports system reviewed and no additional complaints, except as documented Neuro Reports no additional complaints and Reports as per HPI Psych Reports no additional complaints and Reports as per HPI Endo Reports no additional complaints, Reports as per HPI and Denies palpitations Harvinder/Lymph Reports no additional complaints and Reports as per HPI Aller/Immun Reports no additional complaints and Reports as per HPI Physical Exam Vital Signs: Last Vital Signs Pulse 86 02/06/23 09:08 BP 104/68 02/06/23 09:08 BMI result Body Mass Index 22.7 Const General: comfortable and no acute distress Orientation/consciousness: No patient oriented x3 HEENT Other: Unremarkable Head: Yes normal to inspection Neck Neck: Yes normal visual inspection Chest Chest palpation & inspection: normal inspection of the chest Resp Auscultation: clear to auscultation bilaterally Cardio Palpation: normal PMI Heart sounds: S1 normal heart sound present, S2 normal heart sound present, no gallops, no murmurs and no rubs GI Palpation (GI): Soft to palpation Back/Spine/Pelvis Other: unremarkable Skin General skin exam: no rashes or lesions noted Neuro General: No patient oriented x3 Extrem General: Yes normal to inspection Psych Mental Status: mental status grossly abnormal Office Procedures EKG Details: EKG with sinus rhythm at 86/Min; no significant ST-T changes and otherwise unremarkable. [place]. [id number], Complete Assessment & Plan Assessment & Plan (1) Sinus tachycardia: Code(s): R00.0 - Tachycardia, unspecified (2) PVC (premature ventricular contraction): Code(s): I49.3 - Ventricular premature depolarization (3) Cardiomyopathy: Code(s): I42.9 - Cardiomyopathy, unspecified Qualifiers: Cardiomyopathy type: unspecified Qualified Code(s): I42.9 - Cardiomyopathy, unspecified (4) Type 2 diabetes mellitus with unspecified complications: Code(s): E11.8 - Type 2 diabetes mellitus with unspecified complications Plan Cardiac studies reviewed. In the most recent echocardiogram, LVEF 45-50%. In prior study from 2020, 50-55%. In 2018, 40-45%. In the recent Holter, underlying rhythm is sinus with an average rate of 74/Min and otherwise unremarkable. Holter 2020-sinus rhythm with average rate of 74/Min. About 10% the time, rate greater than 100/Min. No significant PVCs and seems to be improved from before. Overall, mild cardiomyopathy, asymptomatic. Stable sinus tachycardia. He remains on a small dose of beta-blockers and that may be continued without changes. Due to developmental disability, conservative care as much able. Discussed with onsite case manager who came. Follow-up in 1 year will be arranged. They will call us with any interim concerns. Forms brought by the certified recreational therapist also completed and signed as requested. Total time spent including patient evaluation, counseling, documentation, coordination of care-32 minutes. Coding Level of Care Code Est Pt Level 4 (06558) Diagnoses Sinus tachycardia R00.0 PVC (premature ventricular contraction) I49.3 Cardiomyopathy, unspecified type I42.9 Cardiomyopathy type: unspecified Type 2 diabetes mellitus with unspecified complications E11.8 CPT Codes EKG - CPT: 17426-[id number], Complete ([id number])
[2023-02-06 09:08] VITALS: BP 104/68; PULSE 86; BMI 22.7
== END 2023-02-06 09:32 | disposition home or self-care (01) ==
PROVIDERS: PCP Internal Medicine; Referring Provider Internal Medicine; Visit Provider Internal Medicine
DX: R00.0 Tachycardia, unspecified (principal); I49.3 Ventricular premature depolarization; I42.9 Cardiomyopathy, unspecified; E11.8 Type 2 diabetes mellitus with unspecified complications
CPT/HCPCS: 93010; 99214

== ENCOUNTER → 2023-02-06 09:05 | Outpatient (BNVA) | payer OTHER, SELFPAY | PROVIDERS: PCP Internal Medicine; Referring Provider Internal Medicine; Visit Provider Internal Medicine | DX: R00.0 Tachycardia, unspecified (principal); I42.9 Cardiomyopathy, unspecified; I49.3 Ventricular premature depolarization; E11.8 Type 2 diabetes mellitus with unspecified complications | CPT/HCPCS: 93005; 99212 ==

== ENCOUNTER 2023-02-07 09:15 | Outpatient (AMB) | payer OTHER, SELFPAY ==
[2023-02-07 09:21] VITALS: BP 126/70; PULSE 81; O2SAT 97; BMI 22.7
--- NOTE | 2023-02-07 09:21 | A.OFFVIS_ITS ---
Intake Vital Signs 02/07/23 09:21 Height 5 ft 1 in Weight 119 lb 14.903 oz BMI 22.7 BP 126/70 Blood Pressure Location Rt brachial Position Sitting Pulse 81 Pulse Source Pulse Oximeter Pulse Oximetry (%) 97 Oxygen Delivery Method Room Air Intake Visit Reasons: cough Allergies shellfish derived [SHELLFISH DERIVED] Allergy (Severe, Verified 02/07/23 09:24) ANAPHYLAXIS metformin Allergy (Intermediate, Verified 02/07/23 09:24) Diarrhea pollen extracts [POLLEN] Allergy (Intermediate, Verified 02/07/23 09:24) PER ALLERGY TESTING scallops [SCALLOPS] Allergy (Intermediate, Verified 02/07/23 09:24) PER ALLERGY TESTING tree and shrub pollen [TREE] Allergy (Intermediate, Verified 02/07/23 09:24) PER ALLERGY TESTING HPI HPI Comments History of Present Illness Details the patient is a 47-year-old gentleman with severe developmental delay, nonverbal and also history of allergic asthma. the patient is here today for follow-up visit. Overall he has been doing well on the Dupixent injections. several weeks ago the patient did start developing worsening cough and chest congestion. He was taken to an urgent care where he was diagnosed with bronchitis. He was given antibiotics and a prednisone taper. He has now completed the course and is back to his baseline. He has not required any rescue inhalers or nebulized therapy. The patient does continue his Dupixent injections with good effects. Explained to the caregivers at the Dupixent will only help with allergic type of respiratory symptoms. This is likely to be more infectious process that activated his asthma. Will continue with current therapy at this time. 08/02/2022 the patient is here for a pulmo evelina follow-up visit. He continues to do well. He did have a worsening cough congested in nature several weeks ago. He was placed on antibiotics and also short course of prednisone. The patient improved now back at his baseline. He continues uses nebulized therapy as prescribed. He continues with Dupixent every 2 weeks. He denies any signific ant shortness of breath cough. He is nonverbal so difficult to get any further history. His last chest her x-ray was from 2020 demonstrating clear lungs. At this point his lungs sound better so therefore will hold off any additional imaging studies. If is cough or to worsen he can always call the office to be evaluated also will request chest x-ray at that time. 02/07/2023 the the patient is here for [facility] follow-up visit. The patient overall is doing well. He continues on Dupixent. Dupixent therapy has been very affecting beneficial. He has not required any prednisone or any additional albuterol treatments. His cough is intermittent and improved. The patient continues with Brovana and budesonide twice a day. Patient also continues with his nasal therapy. I do believe by the next visit in 6 months will try to deescalate some of the respiratory medicines since he is doing so much better. [facility] Medical History Allergic rhinitis due to pollen Asthma Chronic cough Developmental delay, severe Diabetes mellitus Essential hypertension Hearing loss Insomnia Mixed stress and urge urinary incontinence Moderate asthma Physical exam Pure hypercholesterolemia Sinus tachycardia Surgical History History of surgery on arm History of circumcision Family History Mother No problems noted. Father Medical history unknown Maternal Uncle Diabetes Social History Housing: Other Alcohol intake: never Patient Tobacco Use Status: Never used Tobacco e-Cigarette/Vaping Use: Never Used Second Hand Smoke Exposure: No service: No Current occupational status: disabled Cognitive needs: No Hearing needs: No Vision needs: No Review of Systems Const Unobtainable due to mental condition Physical Exam Vital Signs: Last Vital Signs Pulse 81 02/07/23 09:21 BP 126/70 02/07/23 09:21 Pulse Ox 97 02/07/23 09:21 Oxygen Delivery Method Room Air 02/07/23 09:21 BMI result Body Mass Index 22.7 Const General: alert and other (non verbal) Neck Neck: Yes normal visual inspection, Yes full ROM and Yes no lymphadenopathy Chest Chest palpation & inspection: normal inspection of the chest Resp Auscultation: diminished lung sounds Cardio Rate: regular rate Rhythm: regular rhythm Heart sounds: S1 normal heart sound present and S2 normal heart sound present GI Palpation (GI): Soft to palpation and nontender Auscultation: normal bowel sounds Skin General skin exam: rashes and/or lesions noted Assessment & Plan Assessment & Plan (1) Allergic rhinitis due to pollen: Code(s): J30.1 - Allergic rhinitis due to pollen Qualifiers: Allergic rhinitis seasonality: non-seasonal Qualified Code(s): J30.1 - Allergic rhinitis due to pollen (2) Asthma: Code(s): J45.909 - Unspecified asthma, uncomplicated Qualifiers: Asthma severity: severe Asthma persistence: persistent Asthma complication type: uncomplicated Qualified Code(s): J45.50 - Severe persistent asthma, uncomplicated Plan Continue Dupixent injections every 2 weeks continue budesonide and twice a day. Continue Brovana twice a day. Singular therapy Zyrtec in AM Continue Flonase as needed follow-up in 6 months, likely will de-escalate therapy Coding Level of Care Code Est Pt Level 4 (57727) Diagnoses Non-seasonal allergic rhinitis due to pollen J30.1 Allergic rhinitis seasonality: non-seasonal Severe persistent asthma without complication J45.50 Asthma severity: severe Asthma persistence: persistent Asthma complication type: uncomplicated Time Spent (min) 17
== END 2023-02-07 09:38 | disposition home or self-care (01) ==
PROVIDERS: PCP Internal Medicine; Visit Provider Hospitalist
DX: J30.1 Allergic rhinitis due to pollen (principal); J45.50 Severe persistent asthma, uncomplicated
CPT/HCPCS: 99214

== ENCOUNTER → 2023-02-07 09:15 | Outpatient (BNVA) | payer OTHER, SELFPAY | PROVIDERS: PCP Internal Medicine; Visit Provider Hospitalist | DX: J30.1 Allergic rhinitis due to pollen (principal); J45.50 Severe persistent asthma, uncomplicated; Z79.899 Other long term (current) drug therapy | CPT/HCPCS: 99212 ==

== ENCOUNTER 2023-02-17 09:37 | Outpatient (REF) | payer OTHER, SELFPAY ==
--- NOTE | ~2023-02-17 | US_ITS ---
EXAMINATION: US ABDOMEN COMPLETE CLINICAL INFORMATION: Unspecified abdominal pain. COMPARISON: CT abdomen and pelvis with contrast 07/08/2017. Ultrasound abdomen complete 12/30/2016. TECHNIQUE: Real-time imaging of the abdominal viscera. Technically somewhat limited study secondary to patient's inability to hold breath. FINDINGS: PANCREAS: The pancreas is not well seen. ABDOMINAL AORTA: The proximal, mid, and distal segments are normal in caliber. INFERIOR VENA CAVA: Visualized portions are normal. LIVER: Normal. The liver is normal in size. The liver contour is normal. Parenchymal echogenicity is normal. No focal hepatic lesion. There is no intrahepatic biliary duct dilatation seen. GALLBLADDER: Normal. The gallbladder is physiologically distended without evidence of stones, sludge, polyps, wall thickening or pericholecystic fluid. COMMON BILE DUCT: Normal in caliber measuring 0.3 cm in diameter. RIGHT KIDNEY: There is mild pelviectasis without gail hydronephrosis. No renal calculi or focal parenchymal lesions. The kidney measures 10.3 cm in maximum dimension. LEFT KIDNEY: There is mild pelvic atelectasis without gail hydronephrosis. No renal calculi or focal parenchymal lesions. The kidney measures 9.4 cm in maximum dimension. SPLEEN: Normal. The spleen measures 9.5 cm in maximum dimension. FREE FLUID: None. US/US abdomen complete IMPRESSION: 1. Mild bilateral pelviectasis without gail hydronephrosis. 2. The pancreas is not well seen.
== END 2023-02-17 09:38 | disposition home or self-care (01) ==
LOC: HO.HMGCX 09:37
PROVIDERS: PCP Internal Medicine; Visit Provider Internal Medicine
DX: R10.9 Unspecified abdominal pain (principal)
CPT/HCPCS: 76700

== ENCOUNTER 2023-04-16 07:07 | Day surgery (SDC) | payer OTHER, SELFPAY ==
[2023-04-14 14:35] VITALS: BMI 22.5
--- NOTE | 2023-04-15 10:24 | HO.ANESPROP2 ---
Documented by User: Patricia Rodriguez NP 04/15/23 10:29 HPI - Anesthesia Eval Consult details Narrative: 47yo M for Colonoscopy Follows [facility] cardiology for mild CMP. Last office visit 01/2023. Stable for 1 year f/u Follows [facility] pulmo for asthma. Last office visit 01/2023. Stable on dupixent for 6 month f/u. [facility] Active Problems Active Problems: All Active Problems (Updated 02/05/23 @ 09:50 by Sybil Cruz MD) Hyperlipidemia LDL goal <70 (Acute) Abdominal pain (Acute) Intellectual disability (Acute) Upper respiratory tract infection (Acute) Physical exam (Acute) Abrasion forearm (Acute) Cellulitis (Acute) Physical exam (Acute) Hearing loss (Acute) Type 2 diabetes mellitus with unspecified complications (Acute) Cardiomyopathy (Acute) PVC (premature ventricular contraction) (Acute) Sinus tachycardia (Acute) Developmental delay, severe (Acute) Asthma (Acute) Pre-op evaluation (Acute) Chronic headaches (Acute) Mixed stress and urge urinary incontinence (Acute) Acute exacerbation of chronic bronchitis (Acute) Chronic cough (Acute) Essential hypertension (Acute) Insomnia (Acute) Allergic rhinitis due to pollen (Acute) Pure hypercholesterolemia (Acute) Diabetes mellitus (Acute) Moderate asthma (Acute) Past Medical History Medical History Allergic rhinitis due to pollen Asthma Chronic cough Developmental delay, severe Diabetes mellitus Essential hypertension Hearing loss Insomnia Mixed stress and urge urinary incontinence Moderate asthma Physical exam Pure hypercholesterolemia Sinus tachycardia Family History Family History Mother No problems noted. Father Medical history unknown Maternal Uncle Diabetes Surgical History Surgical History History of surgery on arm History of circumcision Social History Social History Housing: Other Alcohol intake: never Patient Tobacco Use Status: Never used Tobacco e-Cigarette/Vaping Use: Never Used Second Hand Smoke Exposure: No service: No Current occupational status: disabled Cognitive needs: No Hearing needs: No Vision needs: No Meds Allergies Allergy/AdvReac Type Severity Reaction Status Date / Time shellfish derived Allergy Severe ANAPHYLAXIS Verified 02/07/23 09:24 [SHELLFISH DERIVED] metformin Allergy Intermediate Diarrhea Verified 02/07/23 09:24 pollen extracts [POLLEN] Allergy Intermediate PER Verified 02/07/23 09:24 ALLERGY TESTING scallops [SCALLOPS] Allergy Intermediate PER Verified 02/07/23 09:24 ALLERGY TESTING tree and shrub pollen [TREE] Allergy Intermediate PER Verified 02/07/23 09:24 ALLERGY TESTING Home Medications Medication Instructions Recorded Confirmed Last Taken Type blood sugar diagnostic #10 ea 03/14/20 02/06/23 Unknown History lancets 30 gauge #100 ea 03/14/20 02/06/23 Unknown History nebulizer and compressor #1 ea 03/14/20 02/06/23 Unknown History risperidone 2 mg tablet 2 mg PO BEDTIME 03/14/20 04/14/23 Unknown History diazepam 10 mg tablet (Valium) 10 mg PO BID PRN Anxiety 04/13/20 04/14/23 Unknown History prednisolone acetate 1 % eye 1 drp ophthalmic (eye) DAILY 04/13/20 04/14/23 Unknown History drops,suspension quetiapine 50 mg tablet (Seroquel) 50 mg PO BEDTIME 05/24/20 04/14/23 Unknown History trazodone 150 mg tablet 150 mg PO BEDTIME 10/31/20 04/14/23 Unknown History trazodone 50 mg tablet 50 mg PO .EVERY MORNING 10/31/20 04/14/23 Unknown History latanoprost 0.005 % eye drops 1 drp ophthalmic (eye) BEDTIME 12/26/20 04/14/23 Unknown History ibuprofen 200 mg tablet 400 mg PO Q6H PRN Pain 02/06/23 04/14/23 Unknown History metformin 500 mg tablet 500 mg PO DAILY 02/06/23 04/14/23 Unknown History pravastatin 40 mg tablet 40 mg PO BEDTIME 02/06/23 02/06/23 Unknown History atorvastatin 40 mg tablet 40 mg PO DAILY 02/07/23 04/14/23 Unknown History pioglitazone 15 mg tablet 15 mg PO DAILY 02/07/23 04/14/23 Unknown History Exam Exam Date and Time: April 15, 2023 1024 Height,Weight and Vital Signs: Height 5 ft 1 in Weight 53.977 kg Pertinent Lab Results Pertinent Lab Results: Laboratory Tests 11/24/21 10/02/22 08:31 07:55 WBC 5.5 Hgb 15.0 Hct 44.7 Plt Count 196 Sodium 141 Potassium 4.0 Chloride 110 H Carbon Dioxide 26 BUN 14 Creatinine 1.13 Narrative Narrative: EKG 01/2023 sinus rhythm at 86/Min; no significant ST-T changes and otherwise unremarkable. Normal WA and corrected QT ECHO 12/2022 Conclusions: - Image quality limited and they are also foreshortened. Suspect mildly reduced LVEF, about 45-50%. - No obvious valvular pathology seen on this study. 3 Day Holter 12/2022 Conclusion: 1. Patient was monitored for total period of 3 days 2. Baseline was normal sinus rhythm with average heart of 74 beats per minute 3. No significant arrhythmias noted 4. No significant pauses noted 5. No patient reported events Assessment and Plan Assessment Anesthesia Assessment: Chart Reviewed Documented by User: Luca Ha MD 04/16/23 16:44 [facility] Past Medical History Medical History Allergic rhinitis due to pollen Asthma Chronic cough Developmental delay, severe Diabetes mellitus Essential hypertension Hearing loss Insomnia Mixed stress and urge urinary incontinence Moderate asthma Physical exam Pure hypercholesterolemia Sinus tachycardia Family History Family History Mother No problems noted. Father Medical history unknown Maternal Uncle Diabetes Family history of problems with anesthesia: No Surgical History Surgical History History of surgery on arm History of circumcision History of Problems with Anesthesia: No Social History Social History Housing: Other Alcohol intake: never Patient Tobacco Use Status: Never used Tobacco e-Cigarette/Vaping Use: Never Used Second Hand Smoke Exposure: No service: No Current occupational status: disabled Cognitive needs: No Hearing needs: No Vision needs: No Meds Allergies Allergy/AdvReac Type Severity Reaction Status Date / Time shellfish derived Allergy Severe ANAPHYLAXIS Verified 02/07/23 09:24 [SHELLFISH DERIVED] metformin Allergy Intermediate Diarrhea Verified 02/07/23 09:24 pollen extracts [POLLEN] Allergy Intermediate PER Verified 02/07/23 09:24 ALLERGY TESTING scallops [SCALLOPS] Allergy Intermediate PER Verified 02/07/23 09:24 ALLERGY TESTING tree and shrub pollen [TREE] Allergy Intermediate PER Verified 02/07/23 09:24 ALLERGY TESTING Home Medications Medication Instructions Recorded Confirmed Last Taken Type blood sugar diagnostic #10 ea 03/14/20 02/06/23 Unknown History lancets 30 gauge #100 ea 03/14/20 02/06/23 Unknown History nebulizer and compressor #1 ea 03/14/20 02/06/23 Unknown History risperidone 2 mg tablet 2 mg PO BEDTIME 03/14/20 04/14/23 Unknown History diazepam 10 mg tablet (Valium) 10 mg PO BID PRN Anxiety 04/13/20 04/14/23 Unknown History prednisolone acetate 1 % eye 1 drp ophthalmic (eye) DAILY 04/13/20 04/14/23 Unknown History drops,suspension quetiapine 50 mg tablet (Seroquel) 50 mg PO BEDTIME 05/24/20 04/14/23 Unknown History trazodone 150 mg tablet 150 mg PO BEDTIME 10/31/20 04/14/23 Unknown History trazodone 50 mg tablet 50 mg PO .EVERY MORNING 10/31/20 04/14/23 Unknown History latanoprost 0.005 % eye drops 1 drp ophthalmic (eye) BEDTIME 12/26/20 04/14/23 Unknown History ibuprofen 200 mg tablet 400 mg PO Q6H PRN Pain 02/06/23 04/14/23 Unknown History metformin 500 mg tablet 500 mg PO DAILY 02/06/23 04/14/23 Unknown History pravastatin 40 mg tablet 40 mg PO BEDTIME 02/06/23 02/06/23 Unknown History atorvastatin 40 mg tablet 40 mg PO DAILY 02/07/23 04/14/23 Unknown History pioglitazone 15 mg tablet 15 mg PO DAILY 02/07/23 04/14/23 Unknown History Exam Airway Mallampati Class: IV Loose/Missing/Broken Teeth: Yes Assessment and Plan Final Anesthetic Review Family History of Problems with Anesthesia: No History of Problems with Anesthesia: No NPO: Yes ASA Class: III Final Preanesthetic Review: Meds/Allgs Chart Reviewed, Consent Obtained/Reviewed and Anes Risks/Benef Reviewed Patient Risk: High Procedure Risk: Intermediate Anesthetic Plan Anesthetic Plan: MAC: and Agree w/ Assess. and Plan Disposition: Standard PACU
--- NOTE | 2023-04-16 06:52 | MHC.SHP ---
Pre-Procedural Eval Section A Date of Service: 04/16/23 Section B Chief Complaint: Encounter for screening for malignant neoplasm Relevant Family History (Specify if Yes): No Relevant Social History: None Present Medications: see Short Stay Collaborative assessment Medical History: Significant History (Allergic rhinitis due to pollen Asthma Chronic cough Developmental delay, severe Diabetes mellitus Essential hypertension Hearing loss Insomnia Mixed stress and urge urinary incontinence Moderate asthma Physical exam Pure hypercholesterolemia Sinus tachycardia) History of Previous Operations: Relevant previous surgery/procedure and date(s) (circumcision ) Allergies: Allergies Allergy/AdvReac Type Severity Reaction Status Date / Time shellfish derived Allergy Severe ANAPHYLAXIS Verified 02/07/23 09:24 [SHELLFISH DERIVED] metformin Allergy Intermediate Diarrhea Verified 02/07/23 09:24 pollen extracts [POLLEN] Allergy Intermediate PER Verified 02/07/23 09:24 ALLERGY TESTING scallops [SCALLOPS] Allergy Intermediate PER Verified 02/07/23 09:24 ALLERGY TESTING tree and shrub pollen [TREE] Allergy Intermediate PER Verified 02/07/23 09:24 ALLERGY TESTING Review of Systems Sugical H&P ROS: Negative: Constitution, Cardiovascular, Respiratory, Neurological, Psychiatric, Hem-Onc, Allergic/Immunologic, Gastrointestinal, Genitourinary, Musculoskeletal, Integumentary, Endocrine and Eyes/Ears/Nose/Throat Exam Surgical H&P Exam: Normal: Heart, Normal: Lungs, Normal: Extremities, Normal: Abdomen and Normal: Skin and Significant Findings: HEENT and Significant Findings: Neurological (wasted lower limbs, dysmorphic facies ) Plan Diagnosis/Plan: Unchanged I have reviewed the history and physical and performed a pertinent physical examination on my patient. No changes have occurred unless specified. Time Spent With Patient Time: Total time managing care of this patient today ____ minutes.
[2023-04-16 07:45] VITALS: BP 132/79; PULSE 102; RESP 20; TEMP 37; O2SAT 96
[2023-04-16 08:01] LABS: Glucose, Whole Blood 117 mg/dL (60-115)
--- NOTE | 2023-04-16 08:39 | P.OP_ITS ---
Operative Note Operative Note Date of Service: 04/16/23 Narrative: Operative Information Procedure Description: Colonoscopy Indication: screening Anesthesia: MAC COLONOSCOPY Instrument: Olympus variable stiffness pediatric scope 190L Colonoscopy Monitoring: Vital signs and clinical assessment, continuous EKG monitoring, Pulse oximetry, Carbon Dioxide monitoring and blood pressure monitoring were done throughout the procedure. Colon withdrawal time was 9 minutes. Procedure: The patient was placed in the left lateral decubitis position and pre-procedure medications were administered. After a digital rectal examination of the ano-rectum, the video colonoscope was inserted into the rectum and advanced through the colon to the cecum/TI. The colonoscope was slowly withdrawn in a retrograde panoramic fashion and the colon mucosa was carefully examined including a retroflexed view of the rectum. Findings and interventions are described below. Procedure Difficulty: moderate, pressure applied Findings: Terminal Ileum-not intubated Cecum:normal Ascending Colon: 10-12 mm flat polyp, raised with eleview and removed with hot snare with edges ablated and x 1 clip applied Transverse Colon -normal Descending Colon:normal Sigmoid Colon: 5-7 mm sessile polyp removed with cold forceps Rectum: Retroflexion with small internal hemorrhoids, grade I Anorectum - normal Colon preparation: [place] Bowel Preparation Scale Right colon; 2 Transverse colon: 2 Left colon; 2 (0 = Unprepared colon segment with mucosa not seen due to solid stool that cannot be cleared. 1 = Portion of mucosa of the colon segment seen, but other areas of the colon segment not well seen due to staining, residual stool and/or opaque liquid. 2 = Minor amount of residual staining, small fragments of stool and/or opaque liquid, but mucosa of colon segment seen well. 3 = Entire mucosa of colon segment seen well with no residual staining, small fragments of stool or opaque liquid) Impression and Post Procedure Diagnosis: polyps internal hemorrhoids Plan: High fiber diet leaflet Avoid straining at stool, epsom salts and sitz bath, anusol supps or cream Repeat Colonoscopy in 3-5 years or earlier if clinically indicated Above findings were reviewed with the patient and relevant handouts were provided if indicated.
[2023-04-16] MEDS: Lactated Ringers 1,000 ML 100 ML IVCONT (08:40)
[2023-04-16 09:24] VITALS: BP 99/58; PULSE 81; RESP 15; TEMP 36.3; O2SAT 98
[2023-04-16 09:39] VITALS: BP 104/56; PULSE 81; RESP 16; O2SAT 98
== END 2023-04-16 10:06 | disposition home or self-care (01) ==
PROVIDERS: PCP Internal Medicine; Visit Provider Internal Medicine Gastroenterology
PROC: 0DJD8ZZ Inspection of Lower Intestinal Tract, Via Natural or Artificial Opening Endoscopic (ICD-10-PCS; CPT 45378; principal; 2023-04-16 08:30)
DX: Z12.11 Encounter for screening for malignant neoplasm of colon (principal); D12.2 Benign neoplasm of ascending colon; D12.5 Benign neoplasm of sigmoid colon; K64.0 First degree hemorrhoids; R19.7 Diarrhea, unspecified; K59.00 Constipation, unspecified; E11.9 Type 2 diabetes mellitus without complications; I10 Essential (primary) hypertension; J45.909 Unspecified asthma, uncomplicated; E78.00 Pure hypercholesterolemia, unspecified; F89 Unspecified disorder of psychological development; R00.0 Tachycardia, unspecified; I49.3 Ventricular premature depolarization; N39.46 Mixed incontinence; F79 Unspecified intellectual disabilities; R62.50 Unspecified lack of expected normal physiological development in childhood; Z79.899 Other long term (current) drug therapy; Z79.84 Long term (current) use of oral hypoglycemic drugs; Z79.02 Long term (current) use of antithrombotics/antiplatelets
CPT/HCPCS: 45385; 45380; 45381; 82947; 88305; J2250; J2704

== ENCOUNTER → 2023-04-16 07:07 | Outpatient (BNV) | payer OTHER, SELFPAY | PROVIDERS: PCP Internal Medicine; Visit Provider Internal Medicine Gastroenterology | DX: Z12.11 Encounter for screening for malignant neoplasm of colon (principal); D12.2 Benign neoplasm of ascending colon; D12.5 Benign neoplasm of sigmoid colon; K64.0 First degree hemorrhoids | CPT/HCPCS: 45380; 45381; 45385 ==

== ENCOUNTER 2023-04-21 15:16 | Outpatient (AMB) | payer OTHER, SELFPAY ==
[2023-04-21 15:25] VITALS: BP 110/72; PULSE 72; TEMP 36.6; O2SAT 97; BMI 23.1
--- NOTE | 2023-04-21 15:25 | MHC.OFFWIV ---
Intake Vital Signs 04/21/23 15:25 Height 5 ft 1 in Weight 122 lb 6 oz BMI 23.1 BP 110/72 Blood Pressure Location Rt brachial Position Sitting Pulse 72 Pulse Source Pulse Oximeter Temp 97.8 F Temp Source Temporal Artery Scan Pulse Oximetry (%) 97 Oxygen Delivery Method Room Air Intake Visit Reasons: EST/cough (lobby) Intake Note: pt is here for c/o cough x2 days, cough with phelm Patient Tobacco Use Status: Never used Tobacco Allergies shellfish derived [SHELLFISH DERIVED] Allergy (Severe, Verified 04/21/23 16:04) ANAPHYLAXIS metformin Allergy (Intermediate, Verified 04/21/23 16:04) Diarrhea pollen extracts [POLLEN] Allergy (Intermediate, Verified 04/21/23 16:04) PER ALLERGY TESTING scallops [SCALLOPS] Allergy (Intermediate, Verified 04/21/23 16:04) PER ALLERGY TESTING tree and shrub pollen [TREE] Allergy (Intermediate, Verified 04/21/23 16:04) PER ALLERGY TESTING Medication List - Last Reconciled 04/21/23 by Ilya Escalante MD acetaminophen (Tylenol Extra Strength) 1,000 mg (2 x 500 mg) PO Q6H PRN 7 days [adult pull-ups As directed] alcohol swabs (Alcohol Prep Pads) 1 pad topical DAILY arformoterol 12 mL PO BID atorvastatin 40 mg PO DAILY blood sugar diagnostic As directed blood sugar diagnostic (FreeStyle Lite Strips) 1 strip miscellaneous BID blood-glucose meter (FreeStyle Lite Meter kit) As directed budesonide 0.5 mg (2 mL) inhalation BID cetirizine (Zyrtec) 10 mg PO DAILY 30 days dextromethorphan-guaifenesin 30-600 mg (Mucinex DM) 1 tab PO BID PRN 30 days diaper,brief,adult,disposable SIZE MEDIUM diazepam (Valium) 10 mg PO BID PRN dicyclomine 20 mg PO .every 8 hours PRN 30 days Dupixent Syringe (dupilumab) 300 mg (2 mL) subcut Q2W NS fluticasone propionate 50 mcg/actuation 2 sprays intranasal DAILY PRN ibuprofen 400 mg PO Q6H PRN lancets As directed lancets (Pure Comfort Safety Lancets) 30 gauge miscellaneous BID lancets (Pure Comfort Safety Lancets) 28 gauge miscellaneous DIRECTED 90 days latanoprost 0.005% 1 drp ophthalmic (eye) BEDTIME metformin 500 mg PO DAILY metoprolol succinate ER 25 mg PO QAM miscellaneous medical supply 1 ea miscellaneous DAILY 30 days montelukast 10 mg PO QPM nebulizer and compressor As directed pioglitazone 15 mg PO DAILY pravastatin 40 mg PO BEDTIME prednisolone acetate 1% 1 drp ophthalmic (eye) DAILY quetiapine (Seroquel) 50 mg PO BEDTIME risperidone 2 mg PO BEDTIME trazodone 50 mg PO .EVERY MORNING trazodone 150 mg PO BEDTIME Do you need a note to return to daycare/school/sports/work: Yes HPI EST/cough (lobby) HPI Details 47-year-old male presents to the office for a sick visit. He lives in a detention and is brought in by an employee of the detention. 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 The employee at the detention reports that patient has been coughing for the past week. Occasional wheezing. His appetite has decreased over the past week. Patient does not communicate. [facility] Medical History Allergic rhinitis due to pollen Asthma Chronic cough Developmental delay, severe Diabetes mellitus Essential hypertension Hearing loss Insomnia Mixed stress and urge urinary incontinence Moderate asthma Physical exam Pure hypercholesterolemia Sinus tachycardia Surgical History History of surgery on arm History of circumcision Family History Mother No problems noted. Father Medical history unknown Maternal Uncle Diabetes Social History Housing: Other Alcohol intake: never Patient Tobacco Use Status: Never used Tobacco e-Cigarette/Vaping Use: Never Used Second Hand Smoke Exposure: No service: No Current occupational status: disabled Cognitive needs: No Hearing needs: No Vision needs: No Physical Exam Vital Signs: Last Vital Signs Temp 97.8 F 04/21/23 15:25 Pulse 72 04/21/23 15:25 BP 110/72 04/21/23 15:25 Pulse Ox 97 04/21/23 15:25 Oxygen Delivery Method Room Air 04/21/23 15:25 BMI result Body Mass Index 23.1 HEENT Head: Yes normal to inspection Neck Neck: Yes normal visual inspection Chest Chest palpation & inspection: normal palpation of entire chest wall Resp Effort & Inspection: normal respiratory effort Assessment & Plan Assessment & Plan (1) Upper respiratory tract infection: Code(s): J06.9 - Acute upper respiratory infection, unspecified Plan: Antibiotics ordered. Increase fluid intake. Tylenol for aches and pains. If symptoms worsen, follow-up here for a recheck. Coding Level of Care Code Est Pt Level 3 (11797) Diagnoses Upper respiratory tract infection J06.9
== END 2023-04-21 16:09 | disposition home or self-care (01) ==
PROVIDERS: PCP Internal Medicine; Visit Provider Internal Medicine
DX: J06.9 Acute upper respiratory infection, unspecified (principal)
CPT/HCPCS: 99213

== ENCOUNTER 2023-04-30 08:57 | Outpatient (AMB) | payer OTHER, SELFPAY ==
--- NOTE | 2023-04-30 08:58 | MHC.OFFVIS ---
Intake Vital Signs 04/30/23 09:04 Height 5 ft 1 in Weight 121 lb 4.068 oz BMI 22.9 BP 119/56 L Blood Pressure Location Lt brachial Position Sitting Pulse 106 H Intake Visit Reasons: S/P [place]; Dr. Barrera Intake Note: Aiden presents in the office as a follow up colonoscopy. CC: No concerns today just here for a follow up - here for results. education and training manager from [facility] today is here with him [place]. Allergies shellfish derived [SHELLFISH DERIVED] Allergy (Severe, Verified 04/30/23 09:04) ANAPHYLAXIS metformin Allergy (Intermediate, Verified 04/30/23 09:04) Diarrhea pollen extracts [POLLEN] Allergy (Intermediate, Verified 04/30/23 09:04) PER ALLERGY TESTING scallops [SCALLOPS] Allergy (Intermediate, Verified 04/30/23 09:04) PER ALLERGY TESTING tree and shrub pollen [TREE] Allergy (Intermediate, Verified 04/30/23 09:04) PER ALLERGY TESTING grass pollen Allergy (Mild, Verified 04/30/23 09:04) Unknown HPI S/P [place]; Dr. Barrera HPI Details LAST VISIT Screen for colon cancer Patient is unable to retain all the information in regards to colonoscopy. All information was discussed with staff member who will ensure that patient will follow clear liquid diet day before the procedure as well as follow prep instructions. Patient might not be able to drink all the MiraLax prep so we will give him 7 days of Dulcolax tablets before the procedure and hopefully patient will have a good bowel prep. Patient can try day before MiraLax prep, however please verify of with staff members to make sure that patient will be able to drink it. [employer] MERCH[employer] COORDINATOR that is with him today patient does not drink much of fluid most likely will not do well so I will not be sending that script for it. However if patient will be willing to try send MiraLax to pharmacy with instructions. Plan Medications New bisacodyl (Dulcolax (bisacodyl)) Start taking 2 tablet every night 7 days before the procedure and 1 day before procedure take 2 tablets at noon time followed by MiraLax prep. If you will have diarrhea take 1 tablet instead of two 10 mg (2 x 5 mg) PO BEDTIME 14 tabs 0RF Z12.11 - Encounter for screening for malignant neoplasm of colon COLONOSCOPY Findings: Terminal Ileum-not intubated Cecum:normal Ascending Colon: 10-12 mm flat polyp, raised with eleview and removed with hot snare with edges ablated and x 1 clip applied Transverse Colon -normal Descending Colon:normal Sigmoid Colon: 5-7 mm sessile polyp removed with cold forceps Rectum: Retroflexion with small internal hemorrhoids, grade I Anorectum - normal Colon preparation: [place] Bowel Preparation Scale Right colon; 2 Transverse colon: 2 Left colon; 2 (0 = Unprepared colon segment with mucosa not seen due to solid stool that cannot be cleared. 1 = Portion of mucosa of the colon segment seen, but other areas of the colon segment not well seen due to staining, residual stool and/or opaque liquid. 2 = Minor amount of residual staining, small fragments of stool and/or opaque liquid, but mucosa of colon segment seen well. 3 = Entire mucosa of colon segment seen well with no residual staining, small fragments of stool or opaque liquid) Impression and Post Procedure Diagnosis: polyps internal hemorrhoids Plan: High fiber diet leaflet Avoid straining at stool, epsom salts and sitz bath, anusol supps or cream Repeat Colonoscopy in 3-5 years or earlier if clinically indicated PATHOLOGY RESULTS: Diagnosis A. Colon, ascending, polypectomy: Tubular adenoma; negative for high-grade epithelial dysplasia/ invasive carcinoma. B. Colon, sigmoid, polypectomy: Tubular adenoma; negative for high-grade epithelial dysplasia/invasive carcinoma TODAY'S VISIT: Patient is here today for follow-up and to discuss colonoscopy results. Patient is accompanied by his [employer] COORDINATOR and staff member at [facility]. Patient had no ill effects from the prep, anesthesia or procedure itself. Patient is moving his bowels well. No melena, hematochezia, unintentional weight loss or ribbon like stools. Patient has been eating well, has good appetite. Staff member reports that patient has been doing well and denies any GI concerning his. Colonoscopy results discussed with staff member and reports send with her [facility] Medical History (Updated 04/30/23 @ 09:21 by KIKI Frederick-BC) Tubular adenoma Physical exam Hearing loss Sinus tachycardia Developmental delay, severe Asthma Mixed stress and urge urinary incontinence Chronic cough Essential hypertension Insomnia Allergic rhinitis due to pollen Pure hypercholesterolemia Diabetes mellitus Moderate asthma Surgical History (Updated 04/30/23 @ 09:04 by GUI Jaquez) Hx of colonoscopy History of surgery on arm History of circumcision Family History Mother No problems noted. Father Medical history unknown Maternal Uncle Diabetes Social History Housing: Other Alcohol intake: never Patient Tobacco Use Status: Never used Tobacco e-Cigarette/Vaping Use: Never Used Second Hand Smoke Exposure: No service: No Current occupational status: disabled Cognitive needs: No Hearing needs: No Vision needs: No Review of Systems Const Denies weight gain and Denies weight loss ENT Reports no additional complaints, Denies dysphagia and Denies odynophagia Card Reports no additional complaints Resp Reports no additional complaints GI Denies abdominal pain, Denies belching, Denies melena, Denies bloating, Denies change in bowel habits, Denies dysphagia, Denies excessive flatus, Denies dyspepsia, Denies heartburn, Denies diarrhea, Denies loose stools, Denies nausea, Denies odynophagia and Denies vomiting Reports no additional complaints Musc Reports no additional complaints Neuro Reports no additional complaints Psych Reports no additional complaints Endo Reports no additional complaints Physical Exam Vital Signs: BMI result Body Mass Index 22.9 Const General: healthy appearing, no acute distress and well developed Nutritional Appearance: well nourished Orientation/consciousness: patient oriented x3 HEENT Head: Yes normal to inspection, Yes normocephalic and Yes atraumatic Face and sinus: Yes normal facial exam Mouth: Normal oral and palatal mucosa present Throat: Yes posterior oropharynx normal, Yes tonsils normal and Yes uvula midline Eyes General: appearance normal, both eyes and all related structures Neck Neck: Yes normal visual inspection, Yes full ROM and Yes trachea midline Thyroid: Thyroid normal Resp Effort & Inspection: normal respiratory effort, able to speak in complete sentences, no tracheal deviation and symmetric chest movement Auscultation: clear to auscultation bilaterally Cardio Rate: regular rate Heart sounds: S1 normal heart sound present and S2 normal heart sound present GI Inspection: Yes normal to inspection and No distended Palpation (GI): Soft to palpation, not firm, nontender and No hepatosplenomegaly present Auscultation: normal bowel sounds General: Yes no CVA tenderness Back/Spine/Pelvis Back: no CVA tenderness Skin General skin exam: elasticity normal, turgor normal and dry skin Neuro General: patient oriented x3 Psych Appearance: grossly normal Attitude: cooperative Assessment & Plan Assessment & Plan (1) Tubular adenoma: Code(s): D36.9 - Benign neoplasm, unspecified site (2) Status post colonoscopy: Code(s): Z98.890 - Other specified postprocedural states Plan To polyps found, tubular adenoma without high-grade dysplasia or carcinoma found. Patient will need to repeat colonoscopy in 3 years, sooner if clinically necessary. Patient denies any melena, hematochezia, unintentional with as ribbon like stools. Patient will return to the office an as-needed basis. Currently denies any GI concerning symptoms. Patient's staff member is agreeable to plan of care and verbalizes understanding of instructions. She was given the opportunity to ask questions and all questions answered. Thank you for allowing me to participate in his care Coding Level of Care Code Est Pt Level 3 (94290) Diagnoses Tubular adenoma D36.9 Status post colonoscopy Z98.890 Time Spent (min) 25 Comment 15 minutes spent with patient and additional 10 minutes spent reviewing his records
[2023-04-30 09:04] VITALS: BP 119/56; PULSE 106; BMI 22.9
== END 2023-04-30 09:27 | disposition home or self-care (01) ==
PROVIDERS: PCP Internal Medicine; Visit Provider Nurse Practitioner Family
DX: D36.9 Benign neoplasm, unspecified site (principal); Z98.890 Other specified postprocedural states
CPT/HCPCS: 99213

== ENCOUNTER → 2023-04-30 08:57 | Outpatient (BNVA) | payer OTHER, SELFPAY | PROVIDERS: PCP Internal Medicine; Visit Provider Nurse Practitioner Family | DX: D36.9 Benign neoplasm, unspecified site (principal); Z98.890 Other specified postprocedural states | CPT/HCPCS: 99212 ==

== ENCOUNTER 2023-06-13 07:30 | Outpatient (REF) | payer OTHER, SELFPAY ==
[2023-06-13 09:28] LABS: Alanine Aminotransferase 51 U/L (0-40); Albumin Level 3.9 g/dL (3.5-5.0); Alkaline Phosphatase 57 U/L (39-117); Anion Gap 11 (12-20); Aspartate Amino Transferase 30 U/L (5-37); Bilirubin Total 0.9 mg/dL (0.0-1.0); Blood Urea Nitrogen 14 mg/dL (9-16); Calcium 9.1 mg/dL (8.4-10.2); Carbon Dioxide 27 mmol/L (22-29); Chloride 107 mmol/L (96-108); Cholesterol 111 mg/dL (<200); Estimated Glomerular Filt Rate > 60; Glucose Fasting 111 mg/dL (60-99); HDL Cholesterol 52 mg/dL (>40); LDL Cholesterol Calculated 49 mg/dL (<100); Potassium 3.5 mmol/L (3.3-5.1); Sodium 141 mmol/L (135-145); Total Protein 6.6 g/dL (6.5-8.0); Triglycerides 50 mg/dL (<150)
[2023-06-13 21:06] LABS: Creatinine Urine 43.61 mg/dL; Microalbumin Urine < 5.0 mg/L
== END 2023-06-13 07:31 | disposition home or self-care (01) ==
LOC: HO.LAB 07:30
PROVIDERS: PCP Internal Medicine; Visit Provider Internal Medicine
DX: E11.9 Type 2 diabetes mellitus without complications (principal); E78.5 Hyperlipidemia, unspecified
CPT/HCPCS: 36415; 80053; 80061; 82043; 82570

== ENCOUNTER 2023-06-16 08:22 | Outpatient (AMB) | payer OTHER, SELFPAY ==
--- NOTE | 2023-06-16 08:27 | A.OFFPC_ITS ---
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 Required: No Accompanied by: staff Allergies shellfish derived [SHELLFISH DERIVED] Allergy (Severe, Verified 06/16/23 09:02) ANAPHYLAXIS metformin Allergy (Intermediate, Verified 06/16/23 09:02) Diarrhea pollen extracts [POLLEN] Allergy (Intermediate, Verified 06/16/23 09:02) PER ALLERGY TESTING scallops [SCALLOPS] Allergy (Intermediate, Verified 06/16/23 09:02) PER ALLERGY TESTING tree and shrub pollen [TREE] Allergy (Intermediate, Verified 06/16/23 09:02) PER ALLERGY TESTING grass pollen Allergy (Mild, Verified 06/16/23 09:02) Unknown Medication List - Last Reconciled 06/16/23 by Sybil Cruz MD acetaminophen (Tylenol Extra Strength) 1,000 mg (2 x 500 mg) PO Q6H PRN 7 days [adult pull-ups As directed] albuterol sulfate 2 mg PO Q8H arformoterol 12 mL PO BID atorvastatin 40 mg PO DAILY blood sugar diagnostic As directed blood sugar diagnostic (FreeStyle Lite Strips) 1 strip miscellaneous BID blood-glucose meter (FreeStyle Lite Meter kit) As directed budesonide 0.5 mg (2 mL) inhalation BID cetirizine (Zyrtec) 10 mg PO DAILY 30 days dextromethorphan-guaifenesin 30-600 mg (Mucinex DM) 1 tab PO BID PRN 30 days diaper,brief,adult,disposable SIZE MEDIUM diazepam (Valium) 10 mg PO BID PRN dicyclomine 20 mg PO .every 8 hours PRN 30 days Dupixent Syringe (dupilumab) 300 mg (2 mL) subcut Q2W NS fluticasone propionate 50 mcg/actuation 2 sprays intranasal DAILY PRN ibuprofen 400 mg PO Q6H PRN lancets As directed lancets (Pure Comfort Safety Lancets) 30 gauge miscellaneous BID lancets (Pure Comfort Safety Lancets) 28 gauge miscellaneous DIRECTED 90 days latanoprost 0.005% 1 drp ophthalmic (eye) BEDTIME metoprolol succinate ER 25 mg PO QAM miscellaneous medical supply 1 ea miscellaneous DAILY 30 days montelukast 10 mg PO QPM nebulizer and compressor As directed pioglitazone 15 mg PO DAILY prednisolone acetate 1% 1 drp ophthalmic (eye) DAILY quetiapine (Seroquel) 50 mg PO BEDTIME risperidone 2 mg PO BEDTIME trazodone 50 mg PO .EVERY MORNING trazodone 150 mg PO BEDTIME Tobacco use date assessed: 06/16/23 Dental Screening Dental Screen Date: 06/16/23 Did you have a dental visit in the last 12 months?: Yes Did you have a dental problem in the last 6 months where you did not have access to dental care?: No Was dental information given to patient?: Patient has dentist HPI HPI Comments History of Present Illness Details This is a 47-year-old male with diabetes mellitus type 2 and developmental delay that comes accompanied by staff member from where he lives for his physical exam. He is nonverbal. His A1c is within goal. Needs assistance for all basic activities of daily living. Last diabetic eye exam was about 3 months ago. Had colonoscopy April 2023 showing tubular adenoma. No acute complaint. Compliant with medications because it is given by staff. [facility] Medical History Tubular adenoma Physical exam Hearing loss Sinus tachycardia Developmental delay, severe Asthma Mixed stress and urge urinary incontinence Chronic cough Essential hypertension Insomnia Allergic rhinitis due to pollen Pure hypercholesterolemia Diabetes mellitus Moderate asthma Surgical History Hx of colonoscopy History of surgery on arm History of circumcision Family History Mother No problems noted. Father Medical history unknown Maternal Uncle Diabetes Social History Housing: Other Alcohol intake: never Patient Tobacco Use Status: Never used Tobacco e-Cigarette/Vaping Use: Never Used Second Hand Smoke Exposure: No service: No Current occupational status: disabled Cognitive needs: No Hearing needs: No Vision needs: No Questionnaire PHQ-9 Over the last 2 weeks, how often have you been bothered by any of the following problems? 1. Little interest or pleasure in doing things: not at all 2. Feeling down, depressed, or hopeless: not at all 3. Trouble falling or staying asleep, or sleeping too much: not at all 4. Feeling tired or having little energy: not at all 5. Poor appetite or overeating: not at all 6. Feeling bad about yourself - or that you are a failure or have let yourself or your family down: not at all 7. Trouble concentrating on things, such as reading the newspaper or watching television: not at all 8. Moving or speaking so slowly that other people could have noticed. Or the opposite - being so fidgety or restless that you have been moving around a lot more than usual: not at all 9. Thoughts that you would be better off or of hurting yourself in some way: not at all Total score: 0 Depression Screening Interpretation: Negative Depression Screening Done: Yes 22163 - PHQ-9 Billing: Yes Source: Developed by Drs. Carlos Collado, Nataliia Cano, Nilesh Rich and colleagues, with an educational rain from [employer]. Thrive Questionnaire Date Thrive assessed: 06/16/23 I am a: Parent/Caregiver What is your living situation today?: I have a steady place to live Within the past 12 months, did the food you bought not last and you didn't have the money to get more?: Never true Within the past 12 months, did you worry whether your food would run out before you got money to buy more?: Never true Do you have trouble paying for medicines?: No Do you have trouble getting transportation to medical appointments?: No Do you have trouble paying your heating and electricity bill?: No Do you have trouble taking care of your child, family member or friend?: No Do you have trouble with day-to-day activities such as bathing, preparing meals, shopping, managing finances, etc.?: No Are you currently unemployed and looking for a job?: No Are you interested in more education?: No Please select the resources that you would like help with: None AUDIT C Alcohol Use Questionnaire (AUDIT-C) 1. How often do you have a drink containing alcohol?: Never Total Score: 0 DONOVAN-7 AMB Questionnaire DONOVAN-7 Date DONOVAN - 7 assessed: 06/16/23 Feeling nervous, anxious, or on edge: 0 = Not at all Not being able to stop or control worryin = Not at all Worrying too much about different things: 0 = Not at all Trouble relaxin = Not at all Being so restless that it is hard to sit still: 0 = Not at all Becoming easily annoyed or irritable: 0 = Not at all Feeling afraid as if something awful might happen: 0 = Not at all Total DONOVAN-7 score (0-4 normal; 5-9 mild; 10-14 moderate; 15-21 severe): 0 Source: Developed by Drs. Carlos Collado, Nataliia Cano, Nilesh Rich and colleagues, with an educational rain from [employer]. DONOVAN-7 Assessment Billing DONOVAN-7 Assessment Tool: DONOVAN-7 Assessment 32147 Review of Systems Const All systems reviewed & are unremarkable except as noted in HPI and below Eyes Reports no additional complaints, Denies change in vision and Denies other visual disturbances Card Denies chest pain at rest, Denies chest pain with activity, Denies edema, Denies irregular heart rhythm, Denies claudication, Denies dyspnea, Denies dyspnea on exertion, Denies orthopnea, Denies paroxysmal nocturnal dyspnea and Denies slow heart rate Resp Denies cough, Denies dyspnea and Denies dyspnea on exertion GI Denies abdominal pain, Denies change in bowel habits, Denies excessive flatus, Denies nausea and Denies vomiting Denies urinary hesitancy, Denies urinary incontinence and Denies urinary urgency Musc Denies abnormal gait, Denies atrophy, Denies deformity and Denies limited range of motion Skin/Breast Denies bleeding lesions, Denies changing lesions and Denies rash Neuro Denies abnormal gait, Denies behavioral changes, Denies confusion and Denies lack of coordination Psych Denies behavioral changes and Denies confusion Physical exam (Primary Care) Vital Signs: Last Vital Signs BP 112/64 06/16/23 08:34 BMI result Body Mass Index 23.4 Tobacco/Smoking Status: Tobacco use Status Tobacco use date assessed 06/16/23 06/16/23 08:36 Patient Tobacco Use Status Never used Tobacco 06/16/23 08:30 e-Cigarette/Vaping Use Never Used 06/16/23 08:30 PHQ-9: PHQ-9 Score PHQ-9: Total score 0 06/16/23 09:09 Depression Screening Interpretation: Negative Thrive Assessment: Date of Thrive Assessment Date Thrive assessed 06/16/23 06/16/23 08:30 Const General: No confusion Orientation/consciousness: patient oriented x3 and No confusion HENMT Head: Yes normal to inspection, Yes normocephalic and Yes atraumatic Ears: external ears normal Eyes General: appearance normal, both eyes and all related structures Eyelids: Yes eyelids normal Conjunctivae: conjunctivae normal Neck Neck: Yes normal visual inspection and Yes supple Resp Effort & Inspection: normal respiratory effort Auscultation: clear to auscultation bilaterally Cardio Jugular venous distension: no JVD Rate: regular rate Rhythm: regular rhythm Heart sounds: S1 normal heart sound present and S2 normal heart sound present GI Inspection: Yes normal to inspection Palpation (GI): Soft to palpation and nontender Auscultation: normal bowel sounds Skin General skin exam: no rashes or lesions noted Neuro General: patient oriented x3, no focal motor deficits and No confusion Extrem General: Yes full ROM Psych Appearance: grossly normal Office Procedures Flu Questionnaire Does the patient have a severe egg allergy?: No Results AMB Hemoglobin A1c AMB Hemoglobin A1c 6.3 % Last Edit by GUI Cárdenas on 06/16/23 09:0 3 Immunizations flu vacc [id number] 6mos up(PF) 60 mcg(15 mcgx4)/0.5 mL IM syringe Performing Provider: Sybil Cruz MD [facility] Documented (not given) by: GUI Cárdenas on 06/16/23 08:36 Reason Not Given: Received Previously Results Reviewed Results Reviewed: Laboratory Last Values Hgb A1c (Clinic) 6.3 % (4.0-6.0) H 06/16/23 09:02 Assessment and Plan Assessment & Plan (1) Physical exam: Code(s): Z00.00 - Encounter for general adult medical examination without abnormal findings Plan: Repeat in a year. (2) Type 2 diabetes mellitus with unspecified complications: Code(s): E11.8 - Type 2 diabetes mellitus with unspecified complications Plan: Continue Actos. A1c goal is equal or less than 7%. Diabetic eye exam yearly. Orders: Orders Influenza [id number] Immunization Today Z23 - Encounter for immunization AMB Hemoglobin A1c Today E11.8 - Type 2 diabetes mellitus with unspecified complications Coding Level of Care Code Est Pt Prev Care 40-64y(84368) Diagnoses Physical exam Z00.00 Type 2 diabetes mellitus with unspecified complications E11.8 Additional Codes DONOVAN-7 Assessment Billing - DONOVAN-7 Assessment Tool: DONOVAN-7 Assessment 83451 ([id number]) Time Spent (min) 33
[2023-06-16 08:34] VITALS: BP 112/64; BMI 23.4
== END 2023-06-16 09:12 | disposition home or self-care (01) ==
PROVIDERS: Visit Provider Internal Medicine
DX: Z00.00 Encounter for general adult medical examination without abnormal findings (principal); E11.8 Type 2 diabetes mellitus with unspecified complications
CPT/HCPCS: 83036; 99396

== ENCOUNTER 2023-07-24 10:06 | Outpatient (REF) | payer OTHER, SELFPAY | END 2023-07-24 10:07 | disposition home or self-care (01) | LOC: HO.SH 10:06 | PROVIDERS: Visit Provider Internal Medicine | DX: Z01.10 Encounter for examination of ears and hearing without abnormal findings (principal); H91.93 Unspecified hearing loss, bilateral | CPT/HCPCS: 92567; 92579; 92588 ==

== ENCOUNTER 2023-08-08 09:04 | Outpatient (AMB) | payer OTHER, SELFPAY ==
[2023-08-08 09:05] VITALS: BP 98/57; PULSE 99; O2SAT 96; BMI 23.3
--- NOTE | 2023-08-08 09:05 | A.OFFVIS_ITS ---
Intake Vital Signs 08/08/23 09:05 Height 5 ft 1 in Weight 123 lb 7.342 oz BMI 23.3 BP 98/57 L Blood Pressure Location Lt brachial Position Sitting Pulse 99 Pulse Source Doppler Pulse Oximetry (%) 96 Oxygen Delivery Method Room Air Intake Visit Reasons: cough Allergies shellfish derived [SHELLFISH DERIVED] Allergy (Severe, Verified 08/08/23 09:11) ANAPHYLAXIS metformin Allergy (Intermediate, Verified 08/08/23 09:11) Diarrhea pollen extracts [POLLEN] Allergy (Intermediate, Verified 08/08/23 09:11) PER ALLERGY TESTING scallops [SCALLOPS] Allergy (Intermediate, Verified 08/08/23 09:11) PER ALLERGY TESTING tree and shrub pollen [TREE] Allergy (Intermediate, Verified 08/08/23 09:11) PER ALLERGY TESTING grass pollen Allergy (Mild, Verified 08/08/23 09:11) Unknown HPI HPI Comments History of Present Illness Details the patient is a 47-year-old gentleman with severe developmental delay, nonverbal and also history of allergic asthma. the patient is here today for follow-up visit. Overall he has been doing well on the Dupixent injections. several weeks ago the patient did start developing worsening cough and chest congestion. He was taken to an urgent care where he was diagnosed with bronchitis. He was given antibiotics and a prednisone taper. He has now completed the course and is back to his baseline. He has not required any rescue inhalers or nebulized therapy. The patient does continue his Dupixent injections with good effects. [facility] only help with allergic type of respiratory symptoms. This is likely to be more infectious process that activated his asthma. Will continue with current therapy at this time. evaluated also will request chest x-ray at that time. 08/08/2023 the the patient is here [facility]. The patient overall is doing well. He continues on Dupixent. Dupixent therapy has been very affecting beneficial. He has not required any prednisone or any additional albuterol treatments. His cough is intermittent and improved. The patient continues with Brovana and budesonide twice a day. Patient also continues with his nasal therapy. I do believe by the next visit in 6 months will try to deescalate some of the respiratory medicines since he is doing so much better. [facility] Medical History Tubular adenoma Physical exam Hearing loss Sinus tachycardia Developmental delay, severe Asthma Mixed stress and urge urinary incontinence Chronic cough Essential hypertension Insomnia Allergic rhinitis due to pollen Pure hypercholesterolemia Diabetes mellitus Moderate asthma Surgical History Hx of colonoscopy History of surgery on arm History of circumcision Family History Mother No problems noted. Father Medical history unknown Maternal Uncle Diabetes Social History Housing: Other Alcohol intake: never Patient Tobacco Use Status: Never used Tobacco e-Cigarette/Vaping Use: Never Used Second Hand Smoke Exposure: No service: No Current occupational status: disabled Cognitive needs: No Hearing needs: No Vision needs: No Review of Systems Const Unobtainable due to mental condition Physical Exam Vital Signs: Last Vital Signs Pulse 99 08/08/23 09:05 BP 98/57 L 08/08/23 09:05 Pulse Ox 96 08/08/23 09:05 Oxygen Delivery Method Room Air 08/08/23 09:05 BMI result Body Mass Index 23.3 Const General: alert and other (non verbal) Neck Neck: Yes normal visual inspection, Yes full ROM and Yes no lymphadenopathy Chest Chest palpation & inspection: normal inspection of the chest Resp Auscultation: diminished lung sounds Cardio Rate: regular rate Rhythm: regular rhythm Heart sounds: S1 normal heart sound present and S2 normal heart sound present GI Palpation (GI): Soft to palpation and nontender Auscultation: normal bowel sounds Skin General skin exam: rashes and/or lesions noted Assessment & Plan Assessment & Plan (1) Allergic rhinitis due to pollen: Code(s): J30.1 - Allergic rhinitis due to pollen Qualifiers: Allergic rhinitis seasonality: non-seasonal Qualified Code(s): J30.1 - Allergic rhinitis due to pollen (2) Asthma: Code(s): J45.909 - Unspecified asthma, uncomplicated Qualifiers: Asthma severity: severe Asthma persistence: persistent Asthma complication type: uncomplicated Qualified Code(s): J45.50 - Severe persistent asthma, uncomplicated Plan Continue Dupixent injections every 2 weeks continue budesonide and twice a day. Continue Brovana twice a day. Singular therapy Zyrtec in AM Continue Flonase as needed stop mucinex follow-up in 6 months, likely will de-escalate therapy Coding Level of Care Code Est Pt Level 4 (93746) Diagnoses Non-seasonal allergic rhinitis due to pollen J30.1 Allergic rhinitis seasonality: non-seasonal Severe persistent asthma without complication J45.50 Asthma severity: severe Asthma persistence: persistent Asthma complication type: uncomplicated Time Spent (min) 16
== END 2023-08-08 09:36 | disposition home or self-care (01) ==
PROVIDERS: PCP Internal Medicine; Visit Provider Hospitalist
DX: J30.1 Allergic rhinitis due to pollen (principal); J45.50 Severe persistent asthma, uncomplicated
CPT/HCPCS: 99214

== ENCOUNTER → 2023-08-08 09:04 | Outpatient (BNVA) | payer OTHER, SELFPAY | PROVIDERS: PCP Internal Medicine; Visit Provider Hospitalist | DX: J45.50 Severe persistent asthma, uncomplicated (principal); J30.1 Allergic rhinitis due to pollen | CPT/HCPCS: 99212 ==

== ENCOUNTER 2023-11-01 09:14 | Outpatient (REF) | payer OTHER, SELFPAY ==
[2023-11-01 10:30] LABS: Alanine Aminotransferase 42 U/L (0-40); Albumin Level 4.1 g/dL (3.5-5.0); Alkaline Phosphatase 58 U/L (39-117); Anion Gap 13 (12-20); Aspartate Amino Transferase 31 U/L (5-37); Bilirubin Total 1.3 mg/dL (0.0-1.0); Blood Urea Nitrogen 14 mg/dL (9-16); Calcium 9.4 mg/dL (8.4-10.2); Carbon Dioxide 23 mmol/L (22-29); Chloride 108 mmol/L (96-108); Cholesterol 125 mg/dL (<200); Estimated Glomerular Filt Rate > 60; Glucose Fasting 103 mg/dL (60-99); HDL Cholesterol 63 mg/dL (>40); LDL Cholesterol Calculated 53 mg/dL (<100); Potassium 3.6 mmol/L (3.3-5.1); Sodium 140 mmol/L (135-145); Total Protein 6.8 g/dL (6.5-8.0); Triglycerides 49 mg/dL (<150)
== END 2023-11-01 09:15 | disposition home or self-care (01) ==
LOC: HO.LAB 09:14
PROVIDERS: PCP Internal Medicine; Visit Provider Internal Medicine
DX: E11.8 Type 2 diabetes mellitus with unspecified complications (principal); E78.5 Hyperlipidemia, unspecified
CPT/HCPCS: 36415; 80053; 80061

== ENCOUNTER 2023-11-03 14:20 | Outpatient (REF) | payer OTHER, SELFPAY ==
--- NOTE | ~2023-11-03 | FL_ITS ---
EXAMINATION: Modified Barium Swallow CLINICAL INFORMATION: Dysphagia COMPARISON: None TECHNIQUE: Modified barium swallow was performed under lateral fluoroscopy with patient in standing position. Barium mixed with solids and liquids of different consistencies was administered by the speech pathologist. Examination was recorded in the fluoroscopy suite. FINDINGS: No laryngeal penetration or aspiration was observed during this examination. FLUOROSCOPY TIME: 1 minute 13 seconds Number of Spot Images: 1 DOSE AREA PRODUCT: 803.5 uGy-m2 (microgray-meter squared) FL/FL barium swallow modified IMPRESSION: No laryngeal penetration or aspiration was observed during this examination. Refer to the speech therapy report for further clarification. This procedure was performed by Juno Hoffman PA-C, and supervised by Dr. Leiva
--- NOTE | 2023-11-04 12:00 | MHC.SL.IMP ---
Addendum entered and electronically signed by Emi Valencia MA, CCC-FABRICATION WELDER 11/06/23 09:49: As a precaution, it was recommended for patient to be administered pills crushed in puree. Upon further discussion with his speech-language pathologist, it was revealed that patient tolerates taking pills whole with liquid. As such, it is recommended he continue to take pills in this manner. Original Note: Date of Plan of Treatment: 11/03/23 Onset of Symptoms/Illness: 09/19/23 Date Treatment Started: 11/03/23 Admitting Diagnosis: Dysphagia Primary Speech & Language Diagnosis: R13.12 Oropharyngeal Phase Dysphagia Reason for Today's Visit: 28693 Modified Barium Swallow Study Pre-evaluation Dietary Consistencies: Pureed (NDD1) Pre-evaluation Liquid Consistency: Thin Pre-evaluation Medication Administration: UNK Medical History: Modified Barium Swallow Study Fluoroscopic Evaluation of Swallowing Function CPT Code 90944 Evaluation Year: 2023 Reason for Study: Recent choking event Referring Physician: Sybil Cruz MD Evaluating Clinician: Emi Valencia MA, CCC-FABRICATION WELDER Study Number: 1 Patient Name: Aiden Kuhn Status: Outpatient, Ambulatory Age: 48 Gender: Male Medical History Medical History Tubular adenoma Physical exam Hearing loss Sinus tachycardia Developmental delay, severe Asthma Mixed stress and urge urinary incontinence Chronic cough Essential hypertension Insomnia Allergic rhinitis due to pollen Pure hypercholesterolemia Diabetes mellitus Moderate asthma Surgical History Hx of colonoscopy History of surgery on arm History of circumcision Current (pre-evaluation) Intake/Diet: Route: PO Diet Grade: Puree Liquid Consistencies: Thin Pre-Study Functional Oral Intake Scale (FOIS): 5- Total oral intake of multiple consistencies requiring special preparation Pain: None reported at time of study SUBJECTIVE: Patient is a 48 year old male with history of severe developmental delay, asthma, hearing loss, chronic cough, allergic rhinitis, and diabetes. Patient is reportedly mostly nonverbal and needs assistance to complete his ADL?s. He was referred for a modified barium swallow study by his primary care physician, Sybil Cruz, after a recent choking event. He was accompanied to this appointment by his uncle, who reports patient had choked on a sandwich, requiring the Heimlich maneuver to expel. He says that patient was subsequently put on a pureed diet [facility] for safety after this choking event. Patient?s uncle reports that patient is otherwise able to eat more solid foods when he comes home though he needs reminders at times to completely chew his food, as he can eat quickly and sometimes does not seem to chew his food well. Patient is here today to evaluate the extent of his dysphagia and to provide safe feeding recommendations. Food and Liquid Trials: Oral Impairment: Lip Closure: 0=No labial escape Oral Impairment: Tongue Control During Bolus Hold: Did not test Oral Impairment: Bolus Preparation/Mastication: 1=Slow prolonged chewing/mashing with complete re-collection Oral Impairment: Bolus Transport/Lingual Motion: 1= Delayed initiation of tongue motion Oral Impairment: Oral Residue: 1=Trace residue lining oral structures Oral Impairment:Initiation of Pharyngeal Swallow: 3=Bolus head in pyriforms Pharyngeal Impairment: Soft Palate Elevation: 0=No bolus between soft palate (SP)/pharyngeal wall (PW) Pharyngeal Impairment: Laryngeal Elevation: 1=Partial thyroid cartilage/arytenoids to epiglottic petiole movement Pharyngeal Impairment: Anterior Hyoid Excursion: 1=Partial anterior movement Pharyngeal Impairment: Epiglottic Movement: 0=Complete inversion Pharyngeal Impairment: Laryngeal Vestibular Closure:: 0=Complete: no air/contrast in laryngeal vestibule Pharyngeal Impairment: Pharyngeal Stripping Wave: 0=Present: complete Pharyngeal Impairment: Pharyngeal Contraction: Did not test Pharyngeal Impairment: Pharyngoesophageal Segment Openin=Complete distension and complete duration: no obstruction of flow Pharyngeal Impairment: Tongue Base (TB) Retraction: 3=Wide column of contrast/air between TB and posterior PW Pharyngeal Impairment: Pharyngeal Residue: 1=Trace residue within or on pharyngeal structures Pharyngeal Impairment: Esophageal Clearance Upright Position: Did not test Impressions and Recommendations Clinical Observations: OBJECTIVE: Time-out: performed at 15:00 Evaluation Start: 14:30; Stop: 14:35 Patient Positioning: Seated 70-90 degrees Viewing Planes: LATERAL ONLY Contrast: MBSImP? Standardized Protocol using commercially prepared, standardized Barium viscosities, including: Varibar? THIN LIQUID (40% w/v, <15 cps) , 1/2 Shortbread Cookie (1 x1 x.25 ) MBSImP ID: [id number] [facility]: Lip closure for intraoral bolus containment resulted in no labial escape. Tongue control during bolus hold could not be assessed due to logistical reasons not related to physiologic impairment. Bolus preparation and mastication resulted in slow, prolonged chewing/mashing but with complete re-collection. Bolus transport/lingual motion demonstrated delayed initiation of tongue motion. Oral residue was a trace, lining oral structures. Initiation of the pharyngeal swallow occurred when the bolus head was in the pyriform sinuses. Soft palate elevation resulted in no bolus between the soft palate and the pharyngeal wall. Laryngeal elevation was decreased, with partial superior movement of the thyroid cartilage/partial approximation of the arytenoids to the epiglottic petiole. Anterior hyoid excursion demonstrated partial anterior movement. Epiglottic movement resulted in complete inversion. Laryngeal vestibular closure was complete, as indicated by no air or contrast within the laryngeal vestibule at the height of the swallow. Pharyngeal stripping wave was present and complete. Pharyngeal contraction could not be determined due to logistical reasons not related to physiologic impairment. Pharyngoesophageal segment opening was completely distended for complete duration with no obstruction of bolus flow. Tongue base retraction allowed a wide column of contrast or air between the retracted tongue base and the posterior pharyngeal wall. Pharyngeal residue was a trace within or on pharyngeal structures. Esophageal clearance in the upright position could not be assessed due to logistical reasons not related to physiologic impairment. Oral Impairment Score: 5 (absence of score, component 2) Pharyngeal Impairment Score: 5 (absence of score, component 13) Esophageal Impairment Score: --- (absence of score, component 17) Laryngeal Penetration and Aspiration: Neither penetration nor aspiration was observed in today's study with Puree, Ground, Regular, and Thin consistencies. ASSESSMENT: Clinician Assessment: This exam was conducted by the speech pathologist and the radiologist. Patient was seated for lateral view. He was able to feed himself when handed utensils and trialed thin, puree (applesauce), ground (ground chicken), and regular solid (ham sandwich, Catie Doone cookie) textures. There was adequate lip closure with no anterior loss of bolus. Mastication was slow and characterized at times by piece meal deglutition pattern. Posterior lingual transport was mildly delayed, but with brisk movement. Pharyngeal swallow trigger was also delayed, initiated at the level of the pyriforms. Post-swallow, there was trace residue coating the tongue. No nasopharyngeal reflux. Partial laryngeal elevation, but with complete laryngeal vestibular closure. Note some coating of the posterior epiglottis, but no evidence of tracheal penetration or aspiration with intake of liquids and solids during this exam. There was trace residue on the posterior pharyngeal wall. Good clearing of the valleculae and pyriform sinuses. No obstruction of flow through the pharyngoesophageal segment opening. Liquid Intake Recommendation: Thin Liquid Intake Strategies: Small Sips Dietary Recommendations: Chopped/Advanced (NDD3) Medication Administration: Crushed with Puree Please contact the pharmacy regarding appropriate crushable or liquid drug formulations that are available whenever modified delivery is recommended. Compensatory Strategies Recommended: Sitting Upright (90 deg), Double Swallow, Small Bites and Sips, Alternate Liquids/Solids, Rate of Ingestion Change, Avoid Specific Foods Supervision during eating and or drinking: Total Supervision (1:1) Recommendation for Speech Therapy: NA:Typical Evaluation Text Comment: Intake Recommendations: Route: PO Diet Grade: Chopped/Advanced- Please refer to the National Dysphagia Diet Level 3 (NDD3) Liquid Consistencies: Thin Post-Study Functional Oral Intake Scale (FOIS): 5- Total oral intake of multiple consistencies requiring special preparation This exam revealed mildly delayed oral phase and delayed pharyngeal swallow trigger. Good airway protection. No evidence of tracheal aspiration or penetration. Trace oral and pharyngeal residue subsequently cleared. Given these observations, recommended upgrade to a CHOPPED/ADVANCED (NDD3) diet with direct supervision at mealtime and the following precautions to maximize safety: -Food to be soft/tender and chopped into small, bite size pieces (no bigger than 1.5cm x 1.5cm) -Ensure patient is seated upright at 90 degrees while eating and/or drinking -Minimize distractions at mealtime -Patient to take small bites and chew food well -Ensure oral cavity is cleared before taking next bite -Alternate bites of food with sips of liquid -Patient to take small, individual sips of liquid -Avoid foods which are sticky, tough, or hard to chew. Therapy Recommendations: Recommendations were verbally discussed with patient?s family member. He verbalized understanding and denied having any questions at this time. Written recommendations also provided for the penitentiary staff. Therapy will be discontinued at this time. Recommend continued monitoring of patient?s dysphagia. If there are any changes or worsening of symptoms, another assessment may be warranted. Prognosis for Improvement: The prognosis for the patient to meet nutritional needs by mouth is excellent based on degree of impairment, caregiver support. Clinician - Supplemental, Miscellaneous Communication: It is important to note MBSS objective studies are snapshots in time and Patient function might vary with factors such as time of day or concomitant medical conditions. For this reason, the final treatment plan for this patient should rest with their medical care team. Additional recommendations should be considered with the totality of the Patient in mind. Thank for the opportunity to participate in the care of this patient. If you have any questions about the content of this report, please contact the [facility]. Education: Education regarding findings from today's study and plans for therapy were provided to Patient only through Verbal Instruction, Written Instruction. Understanding was expressed by the Patient only. Technical Healthcare Consultant Clinician/Clinical Fellow: No Supervisory Statement: N/A Speech Language Pathologist: Emi Valencia M.A., CCC-FABRICATION WELDER
== END 2023-11-03 14:21 | disposition home or self-care (01) ==
LOC: HO.XRAY 14:20
PROVIDERS: Visit Provider Internal Medicine
DX: R13.10 Dysphagia, unspecified (principal)
CPT/HCPCS: 74230; 92611

== ENCOUNTER → 2023-11-03 14:30 | Outpatient (BNV) | payer OTHER, SELFPAY | PROVIDERS: Visit Provider Physician Assistant Surgical | DX: R13.10 Dysphagia, unspecified (principal) | CPT/HCPCS: 74230 ==

== ENCOUNTER 2023-12-16 08:17 | Outpatient (AMB) | payer OTHER, SELFPAY ==
[2023-12-16 08:27] VITALS: BP 110/68; BMI 23.0
--- NOTE | 2023-12-16 08:27 | MHC.PC.OV ---
Vital Signs 12/16/23 08:27 Height 5 ft 1 in Weight 122 lb BMI 23.0 BP 110/68 Blood Pressure Location Lt brachial Position Sitting Intake Visit Reasons: dm Intake Note: Patient here for a follow up on DM Otr Driver Required: No Accompanied by: Uncle and Chief [employer] Allergies shellfish derived [SHELLFISH DERIVED] Allergy (Severe, Verified 12/16/23 09:01) ANAPHYLAXIS metformin Allergy (Intermediate, Verified 12/16/23 09:01) Diarrhea pollen extracts [POLLEN] Allergy (Intermediate, Verified 12/16/23 09:01) PER ALLERGY TESTING scallops [SCALLOPS] Allergy (Intermediate, Verified 12/16/23 09:01) PER ALLERGY TESTING tree and shrub pollen [TREE] Allergy (Intermediate, Verified 12/16/23 09:01) PER ALLERGY TESTING grass pollen Allergy (Mild, Verified 12/16/23 09:01) Unknown Medication List - Last Reconciled 12/16/23 by Sybil Cruz MD acetaminophen (Tylenol Extra Strength) 1,000 mg (2 x 500 mg) PO Q6H PRN 7 days [adult pull-ups As directed] albuterol sulfate 2.5 mg (3 mL) inhalation Q6H PRN 30 days alcohol swabs (Alcohol Pads) pad topical TID arformoterol 12 mL PO BID atorvastatin 40 mg PO DAILY blood sugar diagnostic As directed blood sugar diagnostic (FreeStyle Lite Strips) 1 strip miscellaneous BID blood-glucose meter (FreeStyle Lite Meter kit) As directed budesonide 0.5 mg (2 mL) inhalation BID cetirizine (Zyrtec) 10 mg PO DAILY 30 days dextromethorphan-guaifenesin 30-600 mg (Mucinex DM) 1 tab PO BID PRN 30 days diaper,brief,adult,disposable SIZE MEDIUM diazepam (Valium) 10 mg PO BID PRN dicyclomine 20 mg PO .every 8 hours PRN 30 days Dupixent Syringe (dupilumab) 300 mg (2 mL) subcut Q2W NS fluticasone propionate 50 mcg/actuation 2 sprays intranasal DAILY PRN ibuprofen 400 mg PO Q6H PRN lancets (Pure Comfort Safety Lancets) 30 gauge miscellaneous BID lancets (Pure Comfort Safety Lancets) 28 gauge miscellaneous DIRECTED 90 days lancets As directed latanoprost 0.005% 1 drp ophthalmic (eye) BEDTIME metoprolol succinate ER 25 mg PO QAM miscellaneous medical supply 1 ea miscellaneous DAILY 30 days montelukast 10 mg PO QPM nebulizer and compressor As directed pioglitazone 15 mg PO QAM 30 days prednisolone acetate 1% 1 drp ophthalmic (eye) DAILY quetiapine (Seroquel) 50 mg PO BEDTIME risperidone 2 mg PO BEDTIME trazodone 150 mg PO BEDTIME trazodone 50 mg PO BEDTIME Tobacco use date assessed: 06/16/23 Dental Screening Dental Screen Date: 06/16/23 HPI HPI Comments History of Present Illness Details This is a 48-year-old male with developmental delay, nonverbal, diabetes mellitus type 2 and hyperlipidemia that comes accompanied by on-call and 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 A1c within goal. LDL within goal. They have noticed a 10 lb weight loss in few months. He was on pureed diet due to an episode of choking in which barium swallow was normal and now he was changed to chopped diet. I will order thyroid testing just in case due to his weight loss. He also has onychomycosis of right ring fingernail and will be prescribed terbinafine for 60 days. Liver panel will be done after completing terbinafine. No acute complaints. [facility] Medical History (Updated 12/16/23 @ 09:18 by Sybil Cruz MD) Acute exacerbation of chronic bronchitis Tubular adenoma Physical exam Hearing loss Sinus tachycardia Developmental delay, severe Asthma Mixed stress and urge urinary incontinence Chronic cough Essential hypertension Insomnia Allergic rhinitis due to pollen Pure hypercholesterolemia Diabetes mellitus Moderate asthma Surgical History Hx of colonoscopy History of surgery on arm History of circumcision Family History Mother No problems noted. Father Medical history unknown Maternal Uncle Diabetes Social History Housing: Other Alcohol intake: never Patient Tobacco Use Status: Never used Tobacco e-Cigarette/Vaping Use: Never Used Second Hand Smoke Exposure: No service: No Current occupational status: disabled Cognitive needs: No Hearing needs: No Vision needs: No Questionnaire Thrive Questionnaire Date Thrive assessed: 06/16/23 DONOVAN-7 AMB Questionnaire DONOVAN-7 Date DONOVAN - 7 assessed: 06/16/23 Source: Developed by Drs. Carlos Collado, Nataliia Cano, Nilesh Rihc and colleagues, with an educational rain from [employer]. Review of Systems Const All systems reviewed & are unremarkable except as noted in HPI and below Card Denies chest pain at rest, Denies chest pain with activity, Denies edema, Denies irregular heart rhythm, Denies claudication, Denies dyspnea, Denies dyspnea on exertion, Denies orthopnea, Denies paroxysmal nocturnal dyspnea and Denies slow heart rate Resp Denies cough, Denies dyspnea and Denies dyspnea on exertion Denies urinary hesitancy, Denies urinary incontinence and Denies urinary urgency Skin/Breast Reports nail changes Neuro Denies behavioral changes and Denies lack of coordination Psych Denies behavioral changes Physical exam (Primary Care) Vital Signs: Last Vital Signs BP 110/68 12/16/23 08:27 BMI result Body Mass Index 23.0 Tobacco/Smoking Status: Tobacco use Status Tobacco use date assessed 06/16/23 12/16/23 08:41 Patient Tobacco Use Status Never used Tobacco 12/16/23 08:41 e-Cigarette/Vaping Use Never Used 12/16/23 08:41 Thrive Assessment: Date of Thrive Assessment Date Thrive assessed 06/16/23 12/16/23 08:41 Resp Effort & Inspection: normal respiratory effort Auscultation: clear to auscultation bilaterally Cardio Jugular venous distension: no JVD Rate: regular rate Rhythm: regular rhythm Heart sounds: S1 normal heart sound present and S2 normal heart sound present Skin Nails: other (Onychomycosis) Extrem General: Yes full ROM Results AMB Hemoglobin A1c AMB Hemoglobin A1c 5.5 % Last Edit by GUI Cárdenas on 12/16/23 08:43 Results Reviewed Results Reviewed: Laboratory Last Values Hgb A1c (Clinic) 5.5 % (4.0-6.0) 12/16/23 08:26 Assessment and Plan Assessment & Plan (1) Type 2 diabetes mellitus with unspecified complications: Code(s): E11.8 - Type 2 diabetes mellitus with unspecified complications Plan: Continue Actos. A1c goal is equal or less than 7%. (2) Weight loss: Code(s): R63.4 - Abnormal weight loss Plan: TSH ordered. (3) Onychomycosis: Code(s): B35.1 - Tinea unguium Plan: Start terbinafine to complete 60 days. Repeat liver function test after completion of terbinafine. (4) Hyperlipidemia LDL goal <70: Code(s): E78.5 - Hyperlipidemia, unspecified Plan: Continue statins. LDL goal less than 70. Orders: Orders AMB Hemoglobin A1c Today E11.8 - Type 2 diabetes mellitus with unspecified complications Thyroid Stimulating Hormone Today R63.4 - Abnormal weight loss Liver Panel 2 Months B35.1 - Tinea unguium Medications: New terbinafine HCl 250 mg PO DAILY 60 days 60 tabs 0RF B35.1 - Tinea unguium Coding Level of Care Code Est Pt Level 4 (14383) Complex EM visit Add On G2211 Diagnoses Type 2 diabetes mellitus with unspecified complications E11.8 Weight loss R63.4 Onychomycosis B35.1 Hyperlipidemia LDL goal <70 E78.5 Time Spent (min) 23
== END 2023-12-16 09:19 | disposition home or self-care (01) ==
PROVIDERS: PCP Internal Medicine; Visit Provider Internal Medicine
DX: E11.8 Type 2 diabetes mellitus with unspecified complications (principal); R63.4 Abnormal weight loss; B35.1 Tinea unguium; E78.5 Hyperlipidemia, unspecified
CPT/HCPCS: 83036; 99214; G2211

== ENCOUNTER 2023-12-29 15:49 | Outpatient (REF) | payer OTHER, SELFPAY ==
[2023-12-29 17:52] LABS: Thyroid Stimulating Hormone 0.95 uIU/mL (0.32-4.0)
== END 2023-12-29 15:50 | disposition home or self-care (01) ==
LOC: HO.LAB 15:49
PROVIDERS: PCP Internal Medicine; Visit Provider Internal Medicine
DX: R63.4 Abnormal weight loss (principal)
CPT/HCPCS: 36415; 84443

== ENCOUNTER 2024-02-06 08:50 | Outpatient (AMB) | payer OTHER, SELFPAY ==
[2024-02-06 08:54] VITALS: BP 110/60; PULSE 63; O2SAT 97; BMI 22.7
--- NOTE | 2024-02-06 08:54 | MHC.OFFVIS ---
Vital Signs 02/06/24 08:54 Height 5 ft 1 in Weight 120 lb BMI 22.7 BP 110/60 Blood Pressure Location Lt brachial Position Sitting Pulse 63 Pulse Source Pulse Oximeter Pulse Oximetry (%) 97 Oxygen Delivery Method Room Air Intake Visit Reasons: Cough Recreation Adviser Required: No Allergies shellfish derived [SHELLFISH DERIVED] Allergy (Severe, Verified 02/06/24 08:57) ANAPHYLAXIS metformin Allergy (Intermediate, Verified 02/06/24 08:57) Diarrhea pollen extracts [POLLEN] Allergy (Intermediate, Verified 02/06/24 08:57) PER ALLERGY TESTING scallops [SCALLOPS] Allergy (Intermediate, Verified 02/06/24 08:57) PER ALLERGY TESTING tree and shrub pollen [TREE] Allergy (Intermediate, Verified 02/06/24 08:57) PER ALLERGY TESTING grass pollen Allergy (Mild, Verified 02/06/24 08:57) Unknown HPI Comments Details: the patient is a 47-year-old gentleman with severe developmental delay, nonverbal and also history of allergic asthma. the patient is here today for follow-up visit. Overall he has been doing well on the Dupixent injections. several weeks ago the patient did start developing worsening cough and chest congestion. He was taken to an urgent care where he was diagnosed with bronchitis. He was given antibiotics and a prednisone taper. He has now completed the course and is back to his baseline. He has not required any rescue inhalers or nebulized therapy. The patient does continue his Dupixent injections with good effects. Explained to the caregivers at the Dupixent will only help with allergic type of respiratory symptoms. This is likely to be more infectious process that activated his asthma. Will continue with current therapy at this time. evaluated also will request chest x-ray at that time. 02/06/2024 the the patient is here for pulmonary follow-up visit. The patient overall is doing well. He continues on Dupixent. Dupixent therapy has been very affecting beneficial. He has not required any prednisone or any additional albuterol treatments. His cough is intermittent and improved. The patient continues with Brovana and budesonide twice a day. Patient also continues with his nasal therapy. I do believe by the next visit in 6 months will try to deescalate some of the respiratory medicines since he is doing so much better. [facility] Medical History (Updated 12/16/23 @ 09:18 by Sybil Cruz MD) Acute exacerbation of chronic bronchitis Tubular adenoma Physical exam Hearing loss Sinus tachycardia Developmental delay, severe Asthma Mixed stress and urge urinary incontinence Chronic cough Essential hypertension Insomnia Allergic rhinitis due to pollen Pure hypercholesterolemia Diabetes mellitus Moderate asthma Surgical History Hx of colonoscopy History of surgery on arm History of circumcision Family History Mother No problems noted. Father Medical history unknown Maternal Uncle Diabetes Social History Housing: Other Alcohol intake: never Patient Tobacco Use Status: Never used Tobacco e-Cigarette/Vaping Use: Never Used Second Hand Smoke Exposure: No service: No Current occupational status: disabled Cognitive needs: No Hearing needs: No Vision needs: No Review of Systems Const Unobtainable due to mental condition Physical Exam Vital Signs: Last Vital Signs Pulse 63 02/06/24 08:54 BP 110/60 02/06/24 08:54 Pulse Ox 97 02/06/24 08:54 Oxygen Delivery Method Room Air 02/06/24 08:54 BMI result Body Mass Index 22.7 Const General: alert and other (non verbal) Neck Neck: Yes normal visual inspection, Yes full ROM and Yes no lymphadenopathy Chest Chest palpation & inspection: normal inspection of the chest Resp Auscultation: diminished lung sounds Cardio Rate: regular rate Rhythm: regular rhythm Heart sounds: S1 normal heart sound present and S2 normal heart sound present GI Palpation (GI): Soft to palpation and nontender Auscultation: normal bowel sounds Skin General skin exam: rashes and/or lesions noted Assessment & Plan Assessment & Plan (1) Allergic rhinitis due to pollen: Code(s): J30.1 - Allergic rhinitis due to pollen Category: Medical Qualifiers: Allergic rhinitis seasonality: non-seasonal Qualified Code(s): J30.1 - Allergic rhinitis due to pollen (2) Asthma: Code(s): J45.909 - Unspecified asthma, uncomplicated Category: Medical Qualifiers: Asthma complication type: uncomplicated Asthma persistence: persistent Asthma severity: severe Qualified Code(s): J45.50 - Severe persistent asthma, uncomplicated (3) Chronic cough: Code(s): R05 - Cough Category: Medical Plan Continue Dupixent injections every 2 weeks continue budesonide and twice a day. Continue Brovana twice a day. Singular therapy Zyrtec in AM Continue Flonase as needed CXR follow-up in 6-8 months, likely will de-escalate therapy Orders: Orders XR chest 2V 02/06/24 R05 - Cough Coding Level of Care Code Est Pt Level 4 (17732) Diagnoses Non-seasonal allergic rhinitis due to pollen J30.1 Allergic rhinitis seasonality: non-seasonal Severe persistent asthma without complication J45.50 Asthma complication type: uncomplicated Asthma persistence: persistent Asthma severity: severe Chronic cough R05 Time Spent (min) 15
== END 2024-02-06 09:17 | disposition home or self-care (01) ==
PROVIDERS: PCP Internal Medicine; Visit Provider Hospitalist
DX: J30.1 Allergic rhinitis due to pollen (principal); J45.50 Severe persistent asthma, uncomplicated; R05.9 Cough, unspecified
CPT/HCPCS: 99214

== ENCOUNTER 2024-02-06 08:50 | Outpatient (REF) | payer OTHER, SELFPAY ==
--- NOTE | ~2024-02-06 | XR_ITS ---
EXAMINATION: XR chest 2V CLINICAL INFORMATION: R05 - Cough COMPARISON: Chest radiograph 321 TECHNIQUE: 2 views of the chest FINDINGS: Clear lungs. No pneumothorax. No pleural effusion. Normal cardiomediastinal silhouette. XR/XR chest 2V IMPRESSION: No acute cardiopulmonary findings. Electronically signed by: Yael Ruvalcaba MD 02/24/2024 04:30 PM EDT
[2024-02-06 10:57] LABS: Alanine Aminotransferase 35 U/L (0-40); Albumin Level 3.8 g/dL (3.5-5.0); Alkaline Phosphatase 51 U/L (39-117); Aspartate Amino Transferase 27 U/L (5-37); Bilirubin Direct 0.2 mg/dL (0.0-0.5); Bilirubin Total 0.5 mg/dL (0.0-1.0); Total Protein 6.3 g/dL (6.5-8.0)
== END 2024-02-06 08:51 | disposition home or self-care (01) ==
LOC: HO.XRAY 08:50
PROVIDERS: Absent Provider Internal Medicine; PCP Internal Medicine; Visit Provider Hospitalist
DX: J45.50 Severe persistent asthma, uncomplicated (principal); J30.1 Allergic rhinitis due to pollen; B35.1 Tinea unguium; R05.9 Cough, unspecified
CPT/HCPCS: 36415; 71046; 80076; 99212

== ENCOUNTER 2024-02-09 09:50 | Outpatient (AMB) | payer OTHER, SELFPAY ==
[2024-02-09 09:54] VITALS: BP 92/52; PULSE 61; BMI 22.6
--- NOTE | 2024-02-09 09:54 | MHC.OFFVIS ---
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 Barrel Loader And Cleaner: Barrel Loader And Cleaner Present Accompanied by: Other Relationship Allergies shellfish derived [SHELLFISH DERIVED] Allergy (Severe, Verified 02/06/24 08:57) ANAPHYLAXIS metformin Allergy (Intermediate, Verified 02/06/24 08:57) Diarrhea pollen extracts [POLLEN] Allergy (Intermediate, Verified 02/06/24 08:57) PER ALLERGY TESTING scallops [SCALLOPS] Allergy (Intermediate, Verified 02/06/24 08:57) PER ALLERGY TESTING tree and shrub pollen [TREE] Allergy (Intermediate, Verified 02/06/24 08:57) PER ALLERGY TESTING grass pollen Allergy (Mild, Verified 02/06/24 08:57) Unknown Medication List - Last Reconciled 02/09/24 by Andrei Roper MD acetaminophen (Tylenol Extra Strength) 1,000 mg (2 x 500 mg) PO Q6H PRN 7 days [adult pull-ups As directed] albuterol sulfate 2.5 mg (3 mL) inhalation Q6H PRN 30 days alcohol swabs (Alcohol Pads) pad topical TID arformoterol 2 mL inhalation BID 30 days atorvastatin 40 mg PO DAILY blood sugar diagnostic As directed blood sugar diagnostic (FreeStyle Lite Strips) 1 strip miscellaneous BID blood-glucose meter (FreeStyle Lite Meter kit) As directed budesonide 0.5 mg (2 mL) inhalation BID cetirizine (Zyrtec) 10 mg PO DAILY 30 days dextromethorphan-guaifenesin 30-600 mg (Mucinex DM) 1 tab PO BID PRN 30 days diaper,brief,adult,disposable SIZE MEDIUM diazepam (Valium) 20 mg PO ONCE PRN dicyclomine 20 mg PO .every 8 hours PRN 30 days Dupixent Syringe (dupilumab) 300 mg (2 mL) subcut Q2W NS lancets (Pure Comfort Safety Lancets) 30 gauge miscellaneous BID lancets (Pure Comfort Safety Lancets) 28 gauge miscellaneous DIRECTED 90 days lancets As directed latanoprost 0.005% 1 drp ophthalmic (eye) BEDTIME metoprolol succinate ER 25 mg PO QAM miscellaneous medical supply 1 ea miscellaneous DAILY 30 days montelukast 10 mg PO QPM nebulizer and compressor As directed pioglitazone 15 mg PO QAM 30 days prednisolone acetate 1% 1 drp ophthalmic (eye) DAILY quetiapine (Seroquel) 50 mg PO BEDTIME risperidone 2 mg PO BEDTIME trazodone 150 mg PO BEDTIME HPI Comments Details: Aiden returns for follow-up. He is accompanied by his family preservation caseworker. In the past, seen regarding sinus tachycardia and mild cardiomyopathy. EKG from primary care physician had shown sinus tachycardia in the past. Patient himself has developmental disability and nonverbal. Overall, according to family preservation caseworker he has been doing fine. No issues whatsoever in the last year. Today's blood pressure is slightly low but apparently no dizziness or any complaints in the past. ON LICENSE OF [facility] Medical History (Updated 12/16/23 @ 09:18 by Sybil Cruz MD) Acute exacerbation of chronic bronchitis Tubular adenoma Physical exam Hearing loss Sinus tachycardia Developmental delay, severe Asthma Mixed stress and urge urinary incontinence Chronic cough Essential hypertension Insomnia Allergic rhinitis due to pollen Pure hypercholesterolemia Diabetes mellitus Moderate asthma Surgical History Hx of colonoscopy History of surgery on arm History of circumcision Family History Mother No problems noted. Father Medical history unknown Maternal Uncle Diabetes Social History Housing: Other Alcohol intake: never Patient Tobacco Use Status: Never used Tobacco e-Cigarette/Vaping Use: Never Used Second Hand Smoke Exposure: No service: No Current occupational status: disabled Cognitive needs: No Hearing needs: No Vision needs: No Review of Systems Const Denies chills, Denies fatigue, Denies fever(s), Denies weight gain and Denies weight loss ENT Denies dizziness Card Denies chest pain, Denies leg edema, Denies lightheadedness, Denies palpitations, Denies dyspnea on exertion, Denies orthopnea and Denies other Resp Denies cough and Denies dyspnea on exertion GI Denies hematochezia and Denies change in stool character Musc Denies abnormal gait, Denies muscle weakness, Denies numbness, Denies radiating pain into limb and Denies tingling Neuro Denies abnormal gait, Denies dizziness, Denies numbness and Denies tingling Endo Denies fatigue and Denies palpitations Physical Exam Vital Signs: Last Vital Signs Pulse 61 02/09/24 09:54 BP 92/52 L 02/09/24 09:54 BMI result Body Mass Index 22.6 Const General: comfortable and no acute distress Orientation/consciousness: patient oriented x3 HEENT Other: Unremarkable Head: Yes normal to inspection Neck Neck: Yes normal visual inspection Chest Chest palpation & inspection: normal inspection of the chest Resp Auscultation: clear to auscultation bilaterally Cardio Palpation: normal PMI Heart sounds: S1 normal heart sound present, S2 normal heart sound present, no gallops, no murmurs and no rubs GI Palpation (GI): Soft to palpation Back/Spine/Pelvis Other: unremarkable Skin General skin exam: no rashes or lesions noted Neuro General: patient oriented x3 Extrem General: Yes normal to inspection Psych Mental Status: mental status grossly normal Office Procedures EKG Details: EKG with underlying sinus rhythm at 61/Min; no significant ST-T changes and otherwise unremarkable; [place] [id number], Complete Assessment & Plan Assessment & Plan (1) Sinus tachycardia: Code(s): R00.0 - Tachycardia, unspecified Category: Medical (2) PVC (premature ventricular contraction): Code(s): I49.3 - Ventricular premature depolarization Category: Medical (3) Cardiomyopathy: Code(s): I42.9 - Cardiomyopathy, unspecified Category: Medical Qualifiers: Cardiomyopathy type: unspecified Qualified Code(s): I42.9 - Cardiomyopathy, unspecified (4) Intellectual disability: Code(s): F79 - Unspecified intellectual disabilities Category: Medical Plan Cardiac studies reviewed. In the most recent echocardiogram, LVEF 45-50%. In prior study from 2020, 50-55%. In 2018, 40-45%. In the last Holter, underlying rhythm is sinus with an average rate of 74/Min and otherwise unremarkable. Holter 2020-sinus rhythm with average rate of 74/Min. About 10% the time, rate greater than 100/Min. No significant PVCs and seems to be improved from before. Overall, developmental disability, mild cardiomyopathy, history of sinus tachycardia and PVCs. Blood pressure is lowish, but cannot ascertain symptoms like dizziness as the patient is nonverbal. We discussed about different options including keeping him on the beta-blockers and getting nursing staff to check his blood pressure where he lives, but not clear if that is easily done or not. Hence we decided rather just hold off on the beta-blockers and reassess in 6 months. At that time, we will do an echocardiogram and Holter monitor. In case there is recurring tachycardia, then may reintroduce beta-blockers and just follow the blood pressures. Discussed with family preservation caseworker. Orders: Orders ECG 3 day holter monitor 6 Months R00.0 - Tachycardia, unspecified, R00.2 - Palpitations CA echo transthoracic complete 6 Months I42.9 - Cardiomyopathy, unspecified Medications: Discontinued metoprolol succinate ER Keep Appt on 02/09/24 at 10:00AM w Dr. Judson MD Discontinued Reason: Doctor's Order 25 mg PO QAM 30 tabs 6RF Coding Level of Care Code Est Pt Level 4 (10803) Diagnoses Sinus tachycardia R00.0 PVC (premature ventricular contraction) I49.3 Cardiomyopathy, unspecified type I42.9 Cardiomyopathy type: unspecified Intellectual disability F79 CPT Codes EKG - CPT: 55869-[id number], Complete ([id number])
== END 2024-02-09 10:21 | disposition home or self-care (01) ==
PROVIDERS: PCP Internal Medicine; Visit Provider Internal Medicine
DX: R00.0 Tachycardia, unspecified (principal); I49.3 Ventricular premature depolarization; I42.9 Cardiomyopathy, unspecified; F79 Unspecified intellectual disabilities
CPT/HCPCS: 93010; 99214

== ENCOUNTER → 2024-02-09 09:50 | Outpatient (BNVA) | payer OTHER, SELFPAY | PROVIDERS: PCP Internal Medicine; Visit Provider Internal Medicine | DX: I49.3 Ventricular premature depolarization (principal); I42.9 Cardiomyopathy, unspecified; R00.0 Tachycardia, unspecified; R00.2 Palpitations | CPT/HCPCS: 93005; 99212 ==

== ENCOUNTER 2024-04-08 11:28 | Outpatient (AMB) | payer OTHER, SELFPAY ==
--- NOTE | 2024-04-08 11:38 | AM.OFFWIN_ITS ---
Intake Vital Signs 04/08/24 11:39 Weight 122 lb BP 116/70 Blood Pressure Location Lt brachial Position Sitting Pulse 102 H Pulse Source Pulse Oximeter Pulse Oximetry (%) 97 Oxygen Delivery Method Room Air Intake Visit Reasons: EP Cough, wheezing, asthmatic Intake Note: Patient here for cough and wheezing which started yesterday. Patient Tobacco Use Status: Never used Tobacco Allergies shellfish derived [SHELLFISH DERIVED] Allergy (Severe, Verified 04/08/24 11:40) ANAPHYLAXIS metformin Allergy (Intermediate, Verified 04/08/24 11:40) Diarrhea pollen extracts [POLLEN] Allergy (Intermediate, Verified 04/08/24 11:40) PER ALLERGY TESTING scallops [SCALLOPS] Allergy (Intermediate, Verified 04/08/24 11:40) PER ALLERGY TESTING tree and shrub pollen [TREE] Allergy (Intermediate, Verified 04/08/24 11:40) PER ALLERGY TESTING grass pollen Allergy (Mild, Verified 04/08/24 11:40) Unknown Do you need a note to return to daycare/school/sports/work: No HPI HPI Comments History of Present Illness Details Patient is a 48-year-old male with an intellectual disability who is nonverbal here with 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 She tells me that for the last few days, he has had a cough and she can hear him wheezing. She called his commercial loan collection officer's office, Dr. Mendes, and they recommended he come here to be evaluated. She states it is unclear if he has any head congestion, sinus pain, ear pain or feels short of breath because he is unable to communicate these things. They have not measured a fever. She tells me he has been getting his albuterol nebulizer twice a day but they have not given him any other extra medications. She tells me he does have a history of asthma and he has been getting all of his normal scheduled medications. [facility] Medical History (Updated 04/08/24 @ 12:07 by Sabrina Zuñiga PA-C) Acute exacerbation of chronic bronchitis Tubular adenoma Physical exam Hearing loss Sinus tachycardia Developmental delay, severe Asthma Mixed stress and urge urinary incontinence Chronic cough Essential hypertension Insomnia Allergic rhinitis due to pollen Pure hypercholesterolemia Diabetes mellitus Moderate asthma Surgical History Hx of colonoscopy History of surgery on arm History of circumcision Family History Mother No problems noted. Father Medical history unknown Maternal Uncle Diabetes Social History Housing: Other Alcohol intake: never Patient Tobacco Use Status: Never used Tobacco e-Cigarette/Vaping Use: Never Used Second Hand Smoke Exposure: No service: No Current occupational status: disabled Cognitive needs: No Hearing needs: No Vision needs: No Review of Systems Const All systems reviewed & are unremarkable except as noted in HPI and below Physical Exam Vital Signs: Last Vital Signs Pulse 114 H 04/08/24 11:39 BP 116/70 04/08/24 11:39 Pulse Ox 97 04/08/24 11:39 Oxygen Delivery Method Room Air 04/08/24 11:39 Const General: cooperative, healthy appearing, comfortable and no acute distress Orientation/consciousness: patient oriented x3 Limitations: no limitations HEENT Head: Yes normal to inspection Ears: hearing grossly normal bilaterally, external ears normal and TM's normal bilaterally General nose exam: Normal external nose present, Normal nares present and No nasal discharge present Face and sinus: Yes normal facial exam and Yes sinuses nontender Mouth: Normal oral and palatal mucosa present and moist mucous membranes Throat: Yes tonsils normal, Yes uvula midline and Yes posterior oropharynx abnormal (Erythema) Eyes General: appearance normal, both eyes and all related structures Neck Neck: Yes normal visual inspection Resp Effort & Inspection: normal respiratory effort, able to speak in complete sentences, Actively coughing, no respiratory distress, not tachypneic, no tripod positioning and no use of accessory muscles Auscultation: crackles, rhonchi and wheezes Cardio Rate: regular rate Rhythm: regular rhythm Heart sounds: normal S1 and S2 Skin General skin exam: no rashes or lesions noted Neuro General: patient oriented x3 Extrem General: Yes normal to inspection and Yes no clubbing, cyanosis or edema Assessment & Plan Assessment & Plan (1) Upper respiratory tract infection: Code(s): J06.9 - Acute upper respiratory infection, unspecified Qualifiers: URI type: unspecified URI Qualified Code(s): J06.9 - Acute upper respiratory infection, unspecified Plan: Vital signs are stable, heart rate is a tad elevated, sat is 94% on RA, lung sounds are tight, wheezy with some crackles. I will get a chest x-ray, I did send flu COVID and RSV testing and we will put him on a prednisone burst of 40 mg a day for 5 days. I did change his p.r.n. orders to scheduled orders, Mucinex twice a day and albuterol nebulizer every 6 hours, they should continue both for the next 5 days and then go back to p.r.n. Plan See above Orders: Orders SARS-CoV2/FLU/RSV Today J06.9 - Acute upper respiratory infection, unspecified XR chest 2V Today R05.9 - Cough, unspecified Medications: New prednisone 40 mg (2 x 20 mg) PO DAILY 10 tabs 0RF Coding Level of Care Code Est Pt Level 4 (30078) Diagnoses Upper respiratory tract infection, unspecified type J06.9 URI type: unspecified URI
[2024-04-08 11:39] VITALS: BP 116/70; PULSE 102; O2SAT 97
== END 2024-04-08 14:01 | disposition home or self-care (01) ==
PROVIDERS: PCP Internal Medicine; Visit Provider Physician Assistant
DX: J06.9 Acute upper respiratory infection, unspecified (principal)

== ENCOUNTER 2024-04-08 11:28 | Outpatient (REF) | payer OTHER, SELFPAY ==
[2024-04-08 14:37] LABS: Influenza A PCR NEGATIVE (Negative); Influenza B PCR NEGATIVE (Negative); Resp Syncy Virus RNA Qual PCR NEGATIVE (Negative); SARS COV2 PCR INHOUSE NEGATIVE (Negative)
== END 2024-04-08 11:29 | disposition home or self-care (01) ==
LOC: HO.LAB 11:28
PROVIDERS: PCP Internal Medicine; Visit Provider Physician Assistant
DX: J06.9 Acute upper respiratory infection, unspecified (principal)
CPT/HCPCS: 0241U; 99212

== ENCOUNTER 2024-04-08 12:05 | Outpatient (REF) | payer OTHER, SELFPAY ==
--- NOTE | ~2024-04-08 | XR_ITS ---
EXAMINATION: XR CHEST CLINICAL INFORMATION: Cough COMPARISON: cxr on 02/06/24 TECHNIQUE: 2 views of the chest were obtained. FINDINGS: No significant abnormality is noted involving the heart, lungs, mediastinum, bony thorax or soft tissues. XR/XR chest 2V IMPRESSION: Unremarkable examination. Electronically signed by: vAani Paredes MD 04/08/2024 01:46 PM [facility] [place]
== END 2024-04-08 12:06 | disposition home or self-care (01) ==
LOC: HO.HMGCX 12:05
PROVIDERS: PCP Student in an Organized Health Care Education/Training Program; Visit Provider Physician Assistant
DX: R05.9 Cough, unspecified (principal)
CPT/HCPCS: 71046

== ENCOUNTER 2024-06-17 09:00 | Outpatient (AMB) | payer OTHER, SELFPAY ==
--- NOTE | 2024-06-17 09:05 | A.OFFPC_ITS ---
Vital Signs 06/17/24 09:08 Height 5 ft 1 in Weight 122 lb BMI 23.0 BP 118/70 Blood Pressure Location Lt brachial Position Sitting Intake Visit Reasons: ANNUAL Intake Note: Patient here for a physical exam Licensed Practical Nurse Clinic Nurse Required: No Accompanied by: Staff Allergies shellfish derived [SHELLFISH DERIVED] Allergy (Severe, Verified 06/17/24 09:18) ANAPHYLAXIS metformin Allergy (Intermediate, Verified 06/17/24 09:18) Diarrhea pollen extracts [POLLEN] Allergy (Intermediate, Verified 06/17/24 09:18) PER ALLERGY TESTING scallops [SCALLOPS] Allergy (Intermediate, Verified 06/17/24 09:18) PER ALLERGY TESTING tree and shrub pollen [TREE] Allergy (Intermediate, Verified 06/17/24 09:18) PER ALLERGY TESTING grass pollen Allergy (Mild, Verified 06/17/24 09:18) Unknown Medication List - Last Reconciled 06/17/24 by Sybil Cruz MD acetaminophen (Tylenol Extra Strength) 1,000 mg (2 x 500 mg) PO Q6H PRN 7 days [adult pull-ups As directed] albuterol sulfate 2.5 mg (3 mL) inhalation Q6H PRN 30 days alcohol swabs (Alcohol Pads) pad topical TID arformoterol 2 mL inhalation BID 30 days atorvastatin 40 mg PO DAILY blood sugar diagnostic As directed blood sugar diagnostic (FreeStyle Lite Strips) 1 strip miscellaneous BID blood-glucose meter (FreeStyle Lite Meter kit) As directed budesonide 0.5 mg (2 mL) inhalation BID cetirizine (Zyrtec) 10 mg PO DAILY 30 days dextromethorphan-guaifenesin 30-600 mg (Mucinex DM) 1 tab PO BID PRN 30 days diaper,brief,adult,disposable SIZE MEDIUM diazepam (Valium) 20 mg PO ONCE PRN dicyclomine 20 mg PO .every 8 hours PRN 30 days Dupixent Syringe (dupilumab) 300 mg (2 mL) subcut Q2W NS lancets (Pure Comfort Safety Lancets) 30 gauge miscellaneous BID lancets (Pure Comfort Safety Lancets) 28 gauge miscellaneous DIRECTED 90 days lancets As directed latanoprost 0.005% 1 drp ophthalmic (eye) BEDTIME miscellaneous medical supply 1 ea miscellaneous DAILY 30 days montelukast 10 mg PO QPM nebulizer and compressor As directed pioglitazone 15 mg PO QAM 30 days prednisolone acetate 1% 1 drp ophthalmic (eye) DAILY quetiapine (Seroquel) 50 mg PO BEDTIME risperidone 2 mg PO BEDTIME trazodone 150 mg PO BEDTIME Tobacco use date assessed: 06/17/24 Dental Screening Dental Screen Date: 06/17/24 Did you have a dental visit in the last 12 months?: Yes Did you have a dental problem in the last 6 months where you did not have access to dental care?: No Was dental information given to patient?: Patient has dentist HPI HPI Comments History of Present Illness Details This is a 48-year-old male with developmental delay that is nonverbal accompanied by staff member which is the historian for his physical exam. He has diabetes mellitus type 2 and A1c is 5.9% today. No acute complaints. Use Desitin cream occasional for incontinent care. Colonoscopy done 2022 showing tubular adenoma. Tdap and pneumonia vaccine up-to-date. [facility] Medical History Acute exacerbation of chronic bronchitis Tubular adenoma Physical exam Hearing loss Sinus tachycardia Developmental delay, severe Asthma Mixed stress and urge urinary incontinence Chronic cough Essential hypertension Insomnia Allergic rhinitis due to pollen Pure hypercholesterolemia Diabetes mellitus Moderate asthma Surgical History Hx of colonoscopy History of surgery on arm History of circumcision Family History Mother No problems noted. Father Medical history unknown Maternal Uncle Diabetes Social History Housing: Other Alcohol intake: never Patient Tobacco Use Status: Never used Tobacco e-Cigarette/Vaping Use: Never Used Second Hand Smoke Exposure: No service: No Current occupational status: disabled Cognitive needs: No Hearing needs: No Vision needs: No Questionnaire PHQ-9 Over the last 2 weeks, how often have you been bothered by any of the following problems? 1. Little interest or pleasure in doing things: not at all 2. Feeling down, depressed, or hopeless: not at all 3. Trouble falling or staying asleep, or sleeping too much: not at all 4. Feeling tired or having little energy: not at all 5. Poor appetite or overeating: not at all 6. Feeling bad about yourself - or that you are a failure or have let yourself or your family down: not at all 7. Trouble concentrating on things, such as reading the newspaper or watching television: not at all 8. Moving or speaking so slowly that other people could have noticed. Or the opposite - being so fidgety or restless that you have been moving around a lot more than usual: not at all 9. Thoughts that you would be better off or of hurting yourself in some way: not at all Total score: 0 Depression Screening Interpretation: Negative Depression Screening Done: Yes 35885 - PHQ-9 Billing: Yes Source: Developed by Drs. Carlos Collado, Nataliia Cano, Nilesh Rich and colleagues, with an educational rain from [employer]. Thrive Questionnaire Date Thrive assessed: 06/17/24 I am a: Parent/Caregiver What is your living situation today?: I have a steady place to live Within the past 12 months, did the food you bought not last and you didn't have the money to get more?: I choose not to answer this question Within the past 12 months, did you worry whether your food would run out before you got money to buy more?: I choose not to answer this question Do you have trouble paying for medicines?: No Do you have trouble getting transportation to medical appointments?: No Do you have trouble paying your heating and electricity bill?: No Do you have trouble taking care of your child, family member or friend?: No Do you have trouble with day-to-day activities such as bathing, preparing meals, shopping, managing finances, etc.?: No Are you currently unemployed and looking for a job?: No Are you interested in more education?: No Please select the resources that you would like help with: None Currently or been in a relationship where the following occur: No concerns reported THRIVE Score: 0 AUDIT C Alcohol Use Questionnaire (AUDIT-C) 1. How often do you have a drink containing alcohol?: Never Total Score: 0 DONOVAN-7 AMB Questionnaire DONOVAN-7 Date DONOVAN - 7 assessed: 06/17/24 Feeling nervous, anxious, or on edge: 0 = Not at all Not being able to stop or control worryin = Not at all Worrying too much about different things: 0 = Not at all Trouble relaxin = Not at all Being so restless that it is hard to sit still: 0 = Not at all Becoming easily annoyed or irritable: 0 = Not at all Feeling afraid as if something awful might happen: 0 = Not at all Total DONOVAN-7 score (0-4 normal; 5-9 mild; 10-14 moderate; 15-21 severe): 0 Source: Developed by Drs. Carlos Collado, Nataliia Cano, Nilesh Rich and colleagues, with an educational rain from [employer]. DONOVAN-7 Assessment Billing DONOVAN-7 Assessment Tool: DONOVAN-7 Assessment 87020 Review of Systems Const All systems reviewed & are unremarkable except as noted in HPI and below Card Denies chest pain at rest, Denies chest pain with activity, Denies edema, Denies irregular heart rhythm, Denies claudication, Denies dyspnea, Denies dyspnea on exertion, Denies orthopnea, Denies paroxysmal nocturnal dyspnea and Denies slow heart rate Resp Denies cough, Denies dyspnea and Denies dyspnea on exertion GI Denies abdominal pain, Denies change in bowel habits, Denies excessive flatus, Denies nausea and Denies vomiting Physical exam (Primary Care) Vital Signs: Last Vital Signs BP 118/70 06/17/24 09:08 BMI result Body Mass Index 23.0 Tobacco/Smoking Status: Tobacco use Status Tobacco use date assessed 06/17/24 06/17/24 09:12 Patient Tobacco Use Status Never used Tobacco 06/17/24 09:07 e-Cigarette/Vaping Use Never Used 06/17/24 09:07 PHQ-9: PHQ-9 Score PHQ-9: Total score 0 06/17/24 09:48 Depression Screening Interpretation: Negative Thrive Assessment: Date of Thrive Assessment Date Thrive assessed 06/17/24 06/17/24 09:07 Currently or been in a relationship where the following occur: No concerns reported HENMT Head: Yes normal to inspection, Yes normocephalic and Yes atraumatic Ears: external ears normal Mouth: lip normal Eyes General: appearance normal, both eyes and all related structures Eyelids: Yes eyelids normal Conjunctivae: conjunctivae normal Neck Neck: Yes normal visual inspection and Yes supple Resp Effort & Inspection: normal respiratory effort Auscultation: clear to auscultation bilaterally Cardio Jugular venous distension: no JVD Rate: regular rate Rhythm: regular rhythm Heart sounds: S1 normal heart sound present and S2 normal heart sound present GI Inspection: Yes normal to inspection Palpation (GI): Soft to palpation and nontender Auscultation: normal bowel sounds Skin General skin exam: no rashes or lesions noted Neuro General: no focal motor deficits Extrem General: Yes full ROM Psych Appearance: grossly normal Office Procedures Flu Questionnaire Does the patient have a severe egg allergy?: No Results AMB Hemoglobin A1c AMB Hemoglobin A1c 5.9 % Last Edit by GUI Cárdenas on 06/17/24 09:1 9 Immunizations Fluarix Triv [id number] (PF) 45 mcg (15 mcg x 3)/0.5 mL IM syringe Performing Provider: Sybil Cruz MD [facility] [facility] Documented (not given) by: GUI Cárdenas on 06/17/24 09:48 Reason Not Given: Not Given Results Reviewed Results Reviewed: Laboratory Last Values Hgb A1c (Clinic) 5.9 % (4.0-6.0) 06/17/24 09:05 Coding Level of Care Code Est Pt Level 3 (90861) Est Pt Prev Care 40-64y(39498) Diagnoses Physical exam Z00.00 Type 2 diabetes mellitus with unspecified complications E11.8 Diaper rash L22 Additional Codes DONOVAN-7 Assessment Billing - DONOVAN-7 Assessment Tool: DONOVAN-7 Assessment 60561 ([id number]) PHQ-9 - 80396 - PHQ-9 Billing: Yes ([id number]) Time Spent (min) 30 Assessment & Plan Assessment & Plan (1) Physical exam: Code(s): Z00.00 - Encounter for general adult medical examination without abnormal findings Category: Medical Plan: Repeat in a year. (2) Type 2 diabetes mellitus with unspecified complications: Code(s): E11.8 - Type 2 diabetes mellitus with unspecified complications Category: Medical Plan: Continue Actos. Do diabetic eye exam yearly. A1c goal is equal or less than 7%. (3) Diaper rash: Code(s): L22 - Diaper dermatitis Category: Medical Plan: Continue Desitin as needed for incontinent care. Orders: Orders Lipid Panel Today E78.5 - Hyperlipidemia, unspecified Vitamin D 25-OH Total Today E55.9 - Vitamin D deficiency, unspecified Comprehensive [place]. Panel Fast Today Z00.00 - Encounter for general adult medical examination without abnormal findings AMB Hemoglobin A1c Today E11.8 - Type 2 diabetes mellitus with unspecified complications Microalbumin, Random (w Creat) Today R80.9 - Proteinuria, unspecified T Spot TB Today Z11.1 - Encounter for screening for respiratory tuberculosis Influenza [id number] Immunization Today Z23 - Encounter for immunization Medications: New zinc oxide 13% (Desitin Daily Defense) Small amount twice a day and prn for incontinent care 1 appl topical BID PRN 113 grams 0RF skin irritation 30 days
[2024-06-17 09:08] VITALS: BP 118/70; BMI 23.0
== END 2024-06-17 09:42 | disposition home or self-care (01) ==
PROVIDERS: PCP Internal Medicine; Visit Provider Internal Medicine
DX: Z00.00 Encounter for general adult medical examination without abnormal findings (principal); E11.8 Type 2 diabetes mellitus with unspecified complications; L22 Diaper dermatitis; Z23 Encounter for immunization

== ENCOUNTER → 2024-06-17 09:00 | Outpatient (BNVA) | payer OTHER, SELFPAY | PROVIDERS: PCP Internal Medicine; Visit Provider Internal Medicine | DX: Z00.00 Encounter for general adult medical examination without abnormal findings (principal); E11.8 Type 2 diabetes mellitus with unspecified complications; L22 Diaper dermatitis; E78.5 Hyperlipidemia, unspecified; E55.9 Vitamin D deficiency, unspecified; R80.9 Proteinuria, unspecified | CPT/HCPCS: 83036; 96127; 99212; 99396 ==

== ENCOUNTER → 2024-08-02 08:07 | Outpatient (REF) | payer OTHER, SELFPAY ==
--- NOTE | 2024-08-02 08:11 | CA_ITS ---
Transthoracic Echocardiogram Patient (Last, First, Middle): Aiden Kuhn A Gender: Male Date of : 1975 Age: 49 Procedure Date: 08/02/2024 Procedure Type: Transthoracic Echocardiogram Location: OP Height: 154.94 cm Weight: 54.43 kg BSA: 1.52 m2 Heart Rate: 88 bpm BP: 130 / 60 mmHg Director Of Compliance: ALEX Zavala MD: Andrei Roper MD Executive Officer Special Warfare Team: Ousmane Ye MD Symptoms: I42.9 - Cardiomyopathy, unspecified Study Quality: Technically Difficult ECG Rhythm: Sinus Conclusions: - 1. Normal LV ejection fraction 55-60% with grade 1 diastolic dysfunction with possible apical variant of hypertrophic cardiomyopathy 2. Normal cardiac valvular Dopplers 3. No gross pericardial effusion Findings Procedure Information The quality of the study was technically difficult. The study quality is limited by the patients inability to tolerate the test. Left Ventricle Normal left ventricular size, thickness, and systolic function. The visually estimated ejection fraction is between 55-60%. Spectral Doppler is indicative of an impaired relaxation filling pattern. E/E prime ratio is <8, consistent with normal filling pressures. Evidence suggests grade I (mild) diastolic dysfunction. possible apical variant of hypertrophic cardiomyopathy. Consider contrast study Right Ventricle Normal right ventricular cavity size and systolic function. Atria Both atria are normal in size. There is lipomatous hypertrophy of the interatrial septum. There is a mobile atrial septum noted. There is no evidence of interatrial shunt. Aortic Valve Normal aortic valve structure and function. There is no aortic valve stenosis. There is no aortic valve regurgitation. Mitral Valve Normal mitral valve structure and function. There is trace mitral valve regurgitation. There is no mitral valve stenosis. Pulmonic Valve The pulmonic valve was not well visualized. Tricuspid Valve Likely normal tricuspid valve structure and function. Tricuspid regurgitation envelope is inadequate for calculation of right ventricular systolic pressure. Normal right atrial pressure. Great Vessels All visible segments of the aorta are normal in size. The pulmonary artery was not well visualized. There is no dilatation of the ascending aorta measuring 3.10 cm. Venous The inferior vena cava is normal in size and collapses greater than 50% with inspiration. Pericardium/Pleural There is no evidence of pericardial effusion. Prior Study Comparison Changes noted compared to prior study dated: 01/24/2023. LV systolic function appears in the normal range Recommendations, Care & Conclusions Recommend contrast in the future to improve endocardial definition. Measurements 2D Linear Measurements IVSd: 0.79 0.6-0.9/0.6-1.0 cm LVIDd: 4.23 3.9-5.3/4.2-5.9 cm LVIDd Index: 2.78 2.4-3.2/2.2-3.1 cm/m2 LVIDs: 2.71 2.0-3.6 cm LVPWd: 0.62 0.7-1.1 cm LA Diam: 2.40 2.7-3.8/3.0-4.0 cm LAIDs Index: 1.58 1.5-2.3 cm/m2 LV Mass: 107.67 67-162/88-224 g LV Mass Index: 70.84 43-95/49-115 g/m2 LVOT Diam: 1.80 3.0+(-)1.3 cm 2D Systolic Function EF 4C: 59.00 >55% EF 2C: 61.60 >55% EF BiP: 59.90 >55% Mitral Valve MV Pk E: 0.75 MV PK A: 0.66 MV Decel Time: 227.00 E/A: 1.10 E'Lateral: 8.70 E'Medial: 7.07 E/E' Med: 10.70 E/E' Lat: 8.70 PHT: 67.00 MVA PHT: 3.28 Decel [place]: 3.32 Aortic Valve AoV Pk Bal: 1.06 AoV Mn Bal: 0.81 AoV VTI: 0.22 AoV Pk Grad: 4.00 Aov Mn Grad: 3.00 DAWSON Cont.VTI: 2.07 LVOT LVOT Pk Bal: 0.94 LVOT Mn Bal: 0.64 LVOT VTI: 0.18 LVOT Pk Grad: 4.00 LVOT Mn Grad: 2.00 LVOT Diam: 1.80 LVOT Area: 2.54 Diastolic Function MV Pk E: 0.75 MV Pk A: 0.66 E/A: 1.10 E'Medial: 7.07 E/E' Med: 10.70 E' Laterial: 8.70 E/E' Lat: 8.70 Right Ventricle TAPSE (mm): 24.20 TVS' Bal: 12.80 Tricuspid Valve TR Pk Bal: 1.93 TR Pk Grad: 15.00 Great Vessels Aorta Sinus of Valsalva: 3.00 2.0-3.5 cm Ao Asc: 3.10 2.1-3.4 cm Pulmonary Valve PV Pk Bal: 0.89 Peak PV Grad: 3.00 Updated in Other Vendor System with Status of Final Ousmane Ye MD electronically signed on 08/03/2024 12:00:48 PM with status of Final
--- OUTSIDE RECORDS SUMMARY | 2024-08-02 08:17 | XMS_ITS | Data Portability ---
Author Organization YOSEPH Onofre s, [address] Address [address] [place] [address] Assessment No assessment recorded. Plan of Treatment Reminders Order Date Submit Date Provider Last Modified By Organization Details Last Modified Time Details Appointments None recorded. Lab None recorded. Referral wall steamer referral 2022 023 [email or web address] Not available 10:19:41 Procedures None recorded. Surgeries None recorded. Imaging None recorded. Medication Orders ibuprofen 200 mg tablet 2022 023 [facility], [address] [place] [address], [id number], 10:17:29 Patient TargetsNo targets recorded. Patient Instructions Encounter Date Encounter Id Patient Instructions Last Modified By Organization Details Last Modified Time 08/23/2022 [id number] hammer toe: care instructions Not available 08/23/2022 10:14:28 Please have him brought back in if he develops redness, bruising, or a sore/ulcer on the foot or toe. 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 Pain of toe of right foot Referring Physician: Cassidy Birch, Urgent Care, Encounter Date: 08/23/2022 Problems Name Problem SNOMED Code Status Onset Date Resolution Date Notes Provider Name and Address Organization Details Recorded Time Asthma 153220264 Active 2022 YOSEPH De La Rosa [facility] 09:03:34 Glaucoma 89929216 Active 2022 NICOLE moser PA Karen [facility] 09:03:50 Hyperlipidemia 64005648 Active 2022 NICOLE DRAKE R null, PA - [facility] 3 09:04:04 Diabetes mellitus 52117135 Active 2022 NICOLE DRAKE R null, PA - [facility] 3 09:04:14 Irritable bowel syndrome 98939922 Active 2022 IRIS NOELLE R null, PA - [facility] 3 09:04:21 Mood disorder 57992939 Active 2022 NICOLE DRAKE R null, PA - [facility] 3 09:04:51 Problem Notes None recorded. Medical Equipment None Reported. Allergies No known drug allergies Medications Name Sig Start Date Stop Date Status Note LastModified by Organization Details LastModified Time amoxicillin 500 mg capsule active Not Available Not Available Not Available latanoprost 0.005 % eye drops INSTILL 1 DROP INTO BOTH EYES AT BEDTIME active Not Available Not Available N ot Available prednisone 10 mg tablet TAKE 4 TABS FOR TWO DAYS, THEN TAKE 3 TABS FOR TWO DAYS, THEN TAKE 2 TABS FOR TWO DAYS, THEN TAKE 1 TABLET FOR 2 DAYS. active Not Available Not Available No t Available albuterol sulfate 2.5 mg/3 mL (0.083 %) solution for nebulization INHALE 1 AMP VIA NEBULIZER EVERY 4 TO 6 HOURS NEEDED FOR SHORTNESS OF BREATH OR WHEEZING active Not Available Not Available Not Available trazodone 50 mg tablet TAKE 1 TABLET BY MOUTH EVERY MORNING AND 3 TABLETS BY MOUTH AT 10 PM active Not Available Not Available No t Available cetirizine 10 mg tablet active Not Available Not Available Not Available azithromycin 250 mg tablet TAKE 2 TABLETS BY MOUTH TODAY, THEN TAKE 1 TABLET BY MOUTH DAILY THEREAFTER UNTIL DONE active Not Available Not Available N ot Available pravastatin 40 mg tablet TAKE 1 TABLET BY MOUTH DAILY AT BEDTIME active Not Available Not Available N ot Available prednisone 20 mg tablet TAKE 1 TABLET BY MOUTH EVERY DAY FOR 5 DAYS active Not Available Not Available No t Available acetaminophe n 500 mg tablet TAKE 2 TABLETS BY MOUTH EVERY SIX HOURS NEEDED FOR FEVER OR PAIN active Not Available Not Available No t Available risperidone 2 mg tablet active Not Available Not Available Not Available prednisolone acetate 1 % eye drops,suspen elisa active Not Available Not Available Not Available dicyclomine 20 mg tablet active Not Available Not Available Not Available cephalexin 500 mg capsule TAKE 1 CAPSULE (ORAL) 3 TIMES PER DAY FOR 10 DAYS FOR INFECTION active Not Available Not Available No t Available ibuprofen 200 mg tablet Take 2 tablets every 8 hours by oral route. active Not Available Not Available Not Available budesonide 0.5 mg/2 mL suspension for nebulization INHALE 0.5 MG (2 ML) VIA NEBULIZER ORALLY 2 TIMES A DAY active Not Available Not Available Not Available montelukast 10 mg tablet TAKE 1 TABLET BY MOUTH EVERY EVENING active Not Available Not Available No t Available metoprolol succinate ER 25 mg tablet,exten ded release 24 hr TAKE 1 TABLET BY MOUTH EVERY MORNING active Not Available Not Available No t Available fluticasone propionate 50 mcg/actuatio n nasal spray,suspen elisa USE 2 SPRAY INTRANASAL DAILY NEEDED FOR ALLERGY SYMPTOMS active Not Available Not Available No t Available metformin ER 500 mg tablet,exten ded release 24 hr TAKE 1 TABLET BY MOUTH EVERY MORNING active Not Available Not Available No t Available diazepam 5 mg tablet active Not Available Not Available No t Available Alcohol Prep Pads USE TOPICALLY DAILY active Not Available Not Available No t Available Seroquel active Not Available Not Avai lable Not Available dicyclomine active Not Available Not A vailable Not Available albuterol sulfate active Not Available Not Available Not Available Singulair active Not Available Not Mary Jo ilable Not Available pravastatin active Not Available Not A vailable Not Available Tylenol active Not Available Not Avail able Not Available Valium active Not Available Not Availa ble Not Available trazodone active Not Available Not Mary Jo ilable Not Available Toprol XL active Not Available Not Mary Jo ilable Not Available Risperdal active Not Available Not Mary Jo ilable Not Available metformin active Not Available Not Mary Jo ilable Not Available Zyrtec active Not Available Not Availa ble Not Available budesonide active Not Available Not Av ailable Not Available Mucinex active Not Available Not Avail able Not Available quetiapine 50 mg tablet active Not Available Not Available Not Available Brovana 15 mcg/2 mL solution for nebulization active Not Available Not Available Not Available Brovana active Not Available Not Avail able Not Available FreeStyle Lite Strips USE 1 STRIP DIRECTED 2 TIMES A DAY active Not Available Not Available No t Available Dupixent 300 mg/2 mL subcutaneous syringe active Not Available Not Available Not Available Pure Comfort Safety Lancets 30 gauge USE DIRECTED TO TEST BLOOD SUAGR active Not Available Not Available No t Available Dupixent 300 mg/2 mL subcutaneous pen injector Inject by subcutaneou s route. active Not Available Not Available No t Available Vitals Date Recorded Heart rate Oxygen saturation Oxygen saturation in Arterial blood by Pulse oximetry Respiratory rate Body temperature Body height Body mass index (BMI) Body weight Systolic blood pressure Diastolic blood pressure Provider Name and Address Organization Details Last Updated DateTime 3 98 /min 98 % 98 % 20 /min 98 [degF] 156.21 cm 22 kg/m2 93988.6 g 127 mm[Hg] 84 mm[Hg] NICOLE TIFFANIEARIEL Singh PA - [facility] 3 08:58:16 Social History Question Answer Notes LastModified by Organizat ion Details LastModified Time Tobacco Smoking Status Never Smoker NICOLE moser PA - [facility] 08/23/2022 08:56:13 What Is Your Level Of Alcohol Consumption? None Information not available 08/23/2022 What Is Your Water Source? City Information not available 08/23/2022 What Is Your Heat Source? Gas Information not available 08/23/2022 Have You Had Direct Contact, Or Contact During Intimacy, With Monkeypox Rash, Scabs, Or Body Fluids From A Person With Monkeypox? No Information not available 08/23/2022 Do You Use Any Illicit Or Recreational Drugs? No Information not available 08/23/2022 Have You Recently Traveled Abroad? No Information not available 08/23/2022 Do You Or Have You Ever Used Any Other Forms Of Tobacco Or Nicotine? No Information not available 08/23/2022 Sex: Unknown Functional Status None recorded. Mental Status None recorded. Family History Relationship Description Onset Age of this Age Resolved Age Notes LastModified by Organization Details LastModified Time Father No current problems or disability Not available 08:56:04 Mother No current problems or disability Not available 08:56:04 Medical History No medical history recorded. Past Encounters Encounter ID Performer Location Encounter Start Date Encounter Closed Date Diagnosis/Indication Diagnosis SNOMED-CT Code Diagnosis ICD10 Code Diagnosis Note [id number] [address] [place] [address] 04/15/2022 16:05:14 04/15/2022 16:29:21 [id number] [address] [place] [address] 04/04/2022 19:29:19 04/04/2022 20:01:52 [id number] YOSEPH CANALES [address] [place] [address] 08/23/2022 08:19:02 08/23/2022 10:19:41 Pain of toe of right foot 3488974129 02232 M79.674 Does not appear infected.T here is that deformity - I am questionin g if it was rubbing against the shoe or sock was bunched which caused increased pressure. I advise that cautious with that and consider new shoes if continues to happen after shoes are removed. Patient needs to see wall steamer for foot care - toenails, evaluation s etc. Continue Tylenol as needed but will recommend alternatin g with Ibuprofen. Health Concerns Section Related Observation LastModified by Organization Detai ls LastModified Time None Recorded Concern Status LastModified by Organization Details LastModified Time None Recorded Advance Directives Directive None Recorded Payers Encounter Date Sequence Insurance Name Policy Number Policy Gutierrez Covered Member ID Gutierrez Member ID Guarantor Name 04/15/2022 1 [facility] PLAN (MEDICAID HMO) JENNY Kuhn [id number] Aiden Kuhn 08/23/2022 1 [facility] PLAN (MEDICAID HMO) JENNY Kuhn [id number] Aiden Kuhn Notes Date Note Type Note Provider Name and Address Organization Details Recorded Time 3 text/html ToesReported bypatient.source of patient informationInformation obtained from patient Location:right Severity:mild Duration:2 days Timing:acute Associated Symptoms:no ecchymosis;swelling;redness Notes:The patient has a hammer toe per aide. When they took his shoes and socks off yesterday, it appeared his toe was red and swollen. The patient is non-verbal. The aide said it looks better today and there is no redness or that much swelling. They are hoping to get an order for Ibuprofen and perhaps referral to the wall steamer. He use to go to the wall steamer pre-covid. YOSEPH CANALES [address], [place], [address], [place] - [facility] 08/24/2022 08:42:42
--- OUTSIDE RECORDS SUMMARY | 2024-08-02 08:17 | XMS_ITS | Data Portability ---
Author Organization [place] - [facility] Address [address] [place] [address] Care Team Providers Care Metal Hanging Helper Name Role Phone DIDIER FARRAR Primary Care Provider [phone] Assessment Encounter Date Assessment Date Assessment LastModified by Organization Details LastModified Time 12/06/2018 12/06/2018 Overview/History : 43-year-old male, [facility] with a past medical history that includes but not limited to asthma, diabetes, Hypertension, high cholesterol, developmentally delayed, non verbal, was evaluated for complaints of cough over the past 1-2 days. The patient lives in a intermediate and the history was obtained from the staff. They report no fever, chest pain, shortness of breath or any other concerning symptoms. The patient was given a Albuterol neb this morning that seemed to help with the cough. He takes Zyrtec daily for seasonal allergies. Exam: Pleasant male sitting in chair. No acute distress. Not toxic appearing. Nonverbal. No erythema, no corneal injection or discharge from the eyes. Oropharynx clear with no tonsilar exudate/erythema. Lungs clear to auscultation bilaterally. Heart rate regular with no obvious murmurs. Abdomen soft and nontender. Moving all extremities without difficulty. No peripheral edema. DDx considered, but not limited to: Community-acquired pneumonia. Bronchitis. Asthma exacerbation. Seasonal allergies. Pneumonia unlikely as patient is afebrile with normal O2 sats. Asthma exacerbation possible given history although currently lungs are clear bilaterally. Cough likely related to seasonal allergies. Plan/Discussion: Patient was prescribed Flonase and instructed to take 1 spray to each nostril twice a day to help with cough. Instructed to use albuterol 4 times a day as needed for cough, wheezing or shortness of breath. Patient will need to be reevaluated if he develops a fever, shortness of breath or any new or worsening symptoms. In order to obtain further information and compare any laboratory results/values, I have accessed old patient records. This information was pertinent in my medical decision making today. Time On Scene with Patient: 00:25:34 duc Not available 12/06/2018 13:21:33 Plan of Treatment Reminders Order Date Submit Date Provider Last Modified By Organization Details Last Modified Time Details Appointments None recorded. Lab None recorded. Referral None recorded. Procedures None recorded. Surgeries None recorded. Imaging None recorded. Medication Orders Flonase Allergy Relief 50 mcg/actua tion nasal spray,kerry pension 2018 019 [id number], [address] [place], [address], 9 12:59:31 Patient TargetsNo targets recorded. Patient Instructions Encounter Date Encounter Id Patient Instructions Last Modified By Organization Details Last Modified Time 12/06/2018 [id number] Use the DuoNebs every 4 hours as needed for shortness of breath/wheezing. Take Flonase 1 spray each nostril twice a day to help with the cough. Continue taking Zyrtec as prescribed. If the patient develops increased shortness of breath, fever, chest pain or develops any new or concerning symptoms he will need to be reevaluated. [email or web address] Not available 12/06/2018 12:59:02 Reason for Referral None Reported. Medical Equipment None Reported. Allergies No known drug allergies Medications Name Sig Start Date Stop Date Status Note LastModified by Organization Details LastModified Time albuterol sulfate 2.5 mg/3 mL (0.083 %) solution for nebulizatio n active Not Available Not Available Not Available trazodone 50 mg tablet active Not Available Not Available Not Available cetirizine 10 mg tablet active Not Available Not Available Not Available azithromyci n 250 mg tablet 12/06 completed Not Available Not Available Not Available pravastatin 40 mg tablet active Not Available Not Available Not Available bacitracin 500 unit/gram eye ointment active Not Available Not Available Not Available FreeStyle Lancets 28 gauge active Not Available Not Available Not Available acetaminoph en 500 mg tablet active Not Available Not Available Not Available cyclopentol ate 1 % eye drops active Not Available Not Available Not Available risperidone 2 mg tablet active Not Available Not Available Not Available prednisolon e acetate 1 % eye drops,suspe nsion active Not Available Not Available Not Available dicyclomine 20 mg tablet active Not Available Not Available Not Available benzonatate 100 mg capsule active Not Available Not Available Not Available prednisone 50 mg tablet 12/06 completed Not Available Not Available Not Available pravastatin 20 mg tablet active Not Available Not Available Not Available metoprolol succinate ER 25 mg tablet,exte nded release 24 hr active Not Available Not Available Not Available fluticasone propionate 50 mcg/actuati on nasal spray,suspe nsion [place] Run 1 spray twice a day by intranasa l route. active Not Available Not Available No t Available metformin ER 500 mg tablet,exte nded release 24 hr active Not Available Not Available Not Available diazepam 5 mg tablet active Not Available Not Available No t Available Ventolin HFA 90 mcg/actuati on aerosol inhaler active Not Available Not Available Not Available Flovent HFA 110 mcg/actuati on aerosol inhaler active Not Available Not Available Not Available quetiapine active Not Available Not Av ailable Not Available quetiapine 50 mg tablet active Not Available Not Available Not Available FreeStyle Lite Meter kit active Not Available Not Available Not Available FreeStyle Lite Strips active Not Available Not Available Not Available Vitals Date Recorded Body temperature Respiratory rate Oxygen saturation Oxygen saturation in Arterial blood by Pulse oximetry Heart rate Systolic blood pressure Diastolic blood pressure Provider Name and Address Organization Details Last Updated DateTime 9 97.9 [degF] 26 /min 99 % 99 % 90 /min 126 mm[Hg] 64 mm[Hg] Not Available [facility] 12:41:58 Social History Question Answer Notes LastModified by Organizat ion Details LastModified Time Tobacco Smoking Status Never Smoker SALVADOR CRAWFORD, AICHA [address], [place], [address], [place] - [facility] 12/06/2018 12:53:28 Within The Past 12 Months, Has It Happened That The Food You Bought Just Didn't Last And You Didn't Have Money To Get More. Normal Information not available 12/06/2018 Within The Past 12 Months, Have You Worried That Your Food Would Run Out Before You Got Money To Buy More. Yes Information not available 12/06/2018 Fall Risk: Do You Feel Unsteady When Standing Or Walking? Yes [email or web address] Information not available 12/06/2018 What Was The Date Of Your Most Recent Tobacco Screening? 12/06/2018 Information not available 12/24/2018 Sex: Unknown Functional Status None recorded. Mental Status None recorded. Family History Relationship Description Onset Age of this Age Resolved Age Notes LastModified by Organization Details LastModified Time Father No current problems or disability [email or web address] Not available 11/2018 12:53:16 Mother No current problems or disability [email or web address] Not available 11/2018 12:53:16 Notes:No family hx reported Medical History Condition Response Diabetes Y Coronary Artery Disease N Cancer N Stroke N COPD N Depression N Asthma Y High Cholesterol Y Pulmonary Embolism N Hypertension Y Kidney Disease N Past Encounters Encounter ID Performer Location Encounter Start Date Encounter Closed Date Diagnosis/Indication Diagnosis SNOMED-CT Code Diagnosis ICD10 Code Diagnosis Note [id number] SALVADOR CRAWFORD NP [facility] [address] [place] [address] 12/06/2018 12:39:06 12/07/2018 15:50:17 Cough 66588668 R05 Seasonal a llergic rhinitis 334731084 J30.2 Asthma 767142955 J45.90 9 Health Concerns Section Related Observation LastModified by Organization Detai ls LastModified Time None Recorded Concern Status LastModified by Organization Details LastModified Time None Recorded Advance Directives Directive None Recorded Payers Encounter Date Sequence Insurance Name Policy Number Policy Gutierrez Covered Member ID Gutierrez Member ID Guarantor Name 12/06/2018 1 [id number] Aiden Kuhn [id number] [employer] Notes Date Note Type Note Provider Name and Address Organization Details Recorded Time 12/06/2018 text/html 43-year-old male, who is new to , with a past medical history that includes but not limited to diabetes, asthma, seasonal allergies, autistic/develop mentally delayed, was evaluated at a intermediate for complaints of a cough over the past 1-2 days. The patient was given a nebulizer this morning per staff this seemed to help with the cough. The patient is nonverbal and the history was obtained from the intermediate staff. They report no fever, chills, sweats, shortness of breath, chest pain, abdominal pain, bowel or bladder issues, arthralgia, myalgias or any rashes. No sick exposures. SALVADOR CRAWFORD NP [address] [place] [address] [place], [place], [address], [place] [facility] 12/06/2018 13:22:13
== END ==
LOC: HO.CARD 08:07
PROVIDERS: Visit Provider Internal Medicine
DX: I42.9 Cardiomyopathy, unspecified (principal); R00.0 Tachycardia, unspecified; R00.2 Palpitations
CPT/HCPCS: 93242; 93306

== ENCOUNTER → 2024-08-02 08:11 | Outpatient (BNV) | payer OTHER, SELFPAY | PROVIDERS: Visit Provider Internal Medicine Cardiovascular Disease | DX: I42.2 Other hypertrophic cardiomyopathy (principal); I51.0 Cardiac septal defect, acquired | CPT/HCPCS: 93306 ==

== ENCOUNTER 2024-08-03 15:48 | Outpatient (REF) | payer OTHER, SELFPAY ==
--- OUTSIDE RECORDS SUMMARY | 2024-08-03 19:48 | XMS_ITS | Data Portability ---
Author Organization YOSEPH Onofre s, [address] Address [address] [place] [address] Assessment No assessment recorded. Plan of Treatment Reminders Order Date Submit Date Provider Last Modified By Organization Details Last Modified Time Details Appointments None recorded. Lab None recorded. Referral school teacher referral 2022 023 [email or web address] Not available 10:19:41 Procedures None recorded. Surgeries None recorded. Imaging None recorded. Medication Orders ibuprofen 200 mg tablet 2022 023 [facility], [address] [place] [address], [id number], 10:17:29 Patient TargetsNo targets recorded. Patient Instructions Encounter Date Encounter Id Patient Instructions Last Modified By Organization Details Last Modified Time 08/23/2022 [id number] hammer toe: care instructions Not available 08/23/2022 10:14:28 Please have him brought back in if he develops redness, bruising, or a sore/ulcer on the foot or toe. 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 for Pain of toe of right foot Referring Physician: Cassidy Birch, Urgent Care, Encounter Date: 08/23/2022 Problems Name Problem SNOMED Code Status Onset Date Resolution Date Notes Provider Name and Address Organization Details Recorded Time Asthma 178012085 Active 2022 YOSEPH De La Rosa [facility] 3 09:03:34 Glaucoma 90575881 Active 2022 NICOLE moser PA Karen [facility] 09:03:50 Hyperlipidemia 34555964 Active 2022 NICOLE DRAKE R null, PA - [facility] 3 09:04:04 Diabetes mellitus 20662674 Active 2022 NICOLE DRAKE R null, PA - [facility] 3 09:04:14 Irritable bowel syndrome 32389241 Active 2022 IRIS NOELLE R null, PA - [facility] 3 09:04:21 Mood disorder 35529836 Active 2022 NICOLE DRAKE R null, PA [...] /min 98 [degF] 156.21 cm 22 kg/m2 83770.6 g 127 mm[Hg] 84 mm[Hg] NICOLE TIFFANIEARIEL [...] SNOMED-CT Code Diagnosis ICD10 Code Diagnosis Note [id number] [address] [place] [address] 04/15/2022 16:05:14 04/15/2022 16:29:21 [id number] [address] [place] [address] 04/04/2022 19:29:19 04/04/2022 20:01:52 [id number] YOSEPH CANALES [address] [place] [address] 08/23/2022 08:19:02 08/23/2022 10:19:41 Pain of toe of right foot 5244123446 08567 M79.674 Does not appear infected.T here is that deformity - I am questionin g if it was rubbing against the shoe or sock was bunched which caused increased pressure. I advise that cautious with that and consider new shoes if continues to happen after shoes are removed. Patient needs to see school teacher for foot care - toenails, evaluation s [...] Gutierrez Member ID Guarantor Name 04/15/[address] [facility] PLAN (MEDICAID HMO) JENNY Kuhn [id number] Aiden Kuhn 08/23/[address] [facility] PLAN (MEDICAID HMO) JENNY Kuhn [id number] Aiden Kuhn Notes Date Note Type Note [...] for Ibuprofen and perhaps referral to the school teacher. He use to go to the school teacher pre-covid. YOSEPH CANALES [address], [place], [address], [place] - [facility] 08/24/2022 08:42:42
== END 2024-08-03 15:49 | disposition home or self-care (01) ==
LOC: HO.SH 15:48
PROVIDERS: Visit Provider Internal Medicine
DX: Z01.118 Encounter for examination of ears and hearing with other abnormal findings (principal); H91.93 Unspecified hearing loss, bilateral
CPT/HCPCS: 92567; 92579; 92588

== ENCOUNTER 2024-08-12 08:49 | Outpatient (REF) | payer OTHER, SELFPAY | END 2024-08-12 08:50 | disposition home or self-care (01) | LOC: HO.LAB 08:49 | PROVIDERS: PCP Internal Medicine | DX: J45.901 Unspecified asthma with (acute) exacerbation (principal); J22 Unspecified acute lower respiratory infection | CPT/HCPCS: 99212 ==

== ENCOUNTER 2024-08-12 08:49 | Outpatient (AMB) | payer OTHER, SELFPAY ==
[2024-08-12 09:07] VITALS: BP 110/80; PULSE 57; TEMP 36.5; O2SAT 94
--- NOTE | 2024-08-12 09:07 | MHC.OFFWIV ---
Intake Vital Signs 08/12/24 09:07 Weight 125 lb BP 110/80 Blood Pressure Location Rt brachial Position Sitting Pulse 57 Pulse Source Pulse Oximeter Temp 97.7 F Temp Source Oral Pulse Oximetry (%) 94 Oxygen Delivery Method Room Air Intake Visit Reasons: EP Asthma/severe cough(can't wear mask) Intake Note: Patient here for cough and wheezing that has been present for about 1 week. Patient Tobacco Use Status: Never used Tobacco Allergies shellfish derived [SHELLFISH DERIVED] Allergy (Severe, Verified 08/12/24 09:09) ANAPHYLAXIS metformin Allergy (Intermediate, Verified 08/12/24 09:09) Diarrhea pollen extracts [POLLEN] Allergy (Intermediate, Verified 08/12/24 09:09) PER ALLERGY TESTING scallops [SCALLOPS] Allergy (Intermediate, Verified 08/12/24 09:09) PER ALLERGY TESTING tree and shrub pollen [TREE] Allergy (Intermediate, Verified 08/12/24 09:09) PER ALLERGY TESTING grass pollen Allergy (Mild, Verified 08/12/24 09:09) Unknown Do you need a note to return to daycare/school/sports/work: No HPI HPI Comments History of Present Illness Details History The patient is a 49-year-old male presenting with respiratory symptoms and nocturnal coughing. He reports persistent wheezing and increased coughing that is severe enough to disrupt his sleep, resulting in frequent awakenings, notably around 3:20 AM. The patient uses a nebulizer with a face mask as he does not utilize inhalers effectively. There is increased wheezing despite using Mucinex PRN treatment. There is no associated fever or sinus/ear pain. The patient has a known history of diabetes, necessitating careful monitoring, especially when considering corticosteroid treatment. The patient primarily understands Grenadian, although it is confirmed he comprehends medical instructions. Physical Exam General: Cooperative, healthy appearing, comfortable and no acute distress Orientation/consciousness: Patient oriented x3 Limitations: No limitations Head: Normal to inspection Ears: Hearing grossly normal bilaterally, external ears normal and TM's normal bilaterally Nose: Normal external nose present, Normal nares present and No nasal discharge present Face and sinus: Normal facial exam and Yes sinuses nontender Mouth: Normal oral and palatal mucosa present and moist mucous membranes Throat: Yes tonsils normal, Yes uvula midline. Posterior oropharynx erythema Eyes: Appearance normal, both eyes and all related structures Neck: Normal visual inspection Respiratory: Clear to auscultation bilaterally. Normal respiratory effort, able to speak in complete sentences, Actively coughing, no respiratory distress, not tachypneic, no tripod positioning and no use of accessory muscles. Wheezing present, sounds like a whistle in and out. Cardiovascular: Regular rate and rhythm. Normal S1 and S2 Skin: No rashes or lesions noted Neuro: Patient oriented x3 Extremities: Normal to inspection and Yes no clubbing, cyanosis or edema PFSH Medical History Acute exacerbation of chronic bronchitis Tubular adenoma Physical exam Hearing loss Sinus tachycardia Developmental delay, severe Asthma Mixed stress and urge urinary incontinence Chronic cough Essential hypertension Insomnia Allergic rhinitis due to pollen Pure hypercholesterolemia Diabetes mellitus Moderate asthma Surgical History Hx of colonoscopy History of surgery on arm History of circumcision Family History Mother No problems noted. Father Medical history unknown Maternal Uncle Diabetes Social History Housing: Other Alcohol intake: never Patient Tobacco Use Status: Never used Tobacco e-Cigarette/Vaping Use: Never Used Second Hand Smoke Exposure: No service: No Current occupational status: disabled Cognitive needs: No Hearing needs: No Vision needs: No Review of Systems Const All systems reviewed & are unremarkable except as noted in HPI and below Physical Exam Vital Signs: Last Vital Signs Temp 97.7 F 08/12/24 09:07 Pulse 57 08/12/24 09:07 BP 110/80 08/12/24 09:07 Pulse Ox 94 08/12/24 09:07 Oxygen Delivery Method Room Air 08/12/24 09:07 Assessment & Plan Assessment & Plan (1) Asthma exacerbation, mild: Code(s): J45.901 - Unspecified asthma with (acute) exacerbation Plan: The management plan addresses the patient?s wheezing and respiratory difficulty with a prescribed five-day burst of prednisone, which requires concurrent blood glucose monitoring due to the patient's diabetes. Benzonatate is given for nocturnal cough to improve sleep. A chest X-ray will be performed if feasible, and viral swabs for influenza, COVID-19, and RSV will help pinpoint any viral contribution. Efforts are being made to assess and monitor the patient?s condition comprehensively with follow-ups based on symptomatic response and test outcomes. I filled out paperwork for patient's long-term. My interpretation of the x-ray is no pneumonia, pending radiology read Patient was informed and verbally consented to the use of an ambient scribe for clinic note documentation during this visit (2) Lower respiratory infection (e.g., bronchitis, pneumonia, pneumonitis, pulmonitis): Code(s): J22 - Unspecified acute lower respiratory infection Plan: as above Orders: Orders SARS-CoV2/FLU/RSV Today R09.89 - Other specified symptoms and signs involving the circulatory and respiratory systems XR chest 2V Today R05.9 - Cough, unspecified Medications: New prednisone 40 mg (2 x 20 mg) PO QAM 10 tabs 0RF benzonatate 200 mg PO BEDTIME PRN 10 caps 0RF cough Coding Level of Care Code Est Pt Level 4 (83262) Diagnoses Asthma exacerbation, mild J45.901 Lower respiratory infection (e.g., bronchitis, pneumonia, pneumonitis, pulmonitis) J22
--- OUTSIDE RECORDS SUMMARY | 2024-08-12 09:45 | XMS_ITS | Data Portability ---
Author Organization YOSEPH Onofre s, [address] Address [address] [place] [address] Assessment No assessment recorded. Plan of Treatment Reminders Order Date Submit Date Provider Last Modified By Organization Details Last Modified Time Details Appointments None recorded. Lab None recorded. Referral sock ironer referral 2022 023 [email or web address] Not available 10:19:41 Procedures None recorded. Surgeries None recorded. Imaging None recorded. Medication Orders ibuprofen 200 mg tablet 2022 023 [facility], [address] [place] [address], [id number], 10:17:29 Patient TargetsNo targets recorded. Patient Instructions Encounter Date Encounter Id Patient Instructions Last Modified By Organization Details Last Modified Time 08/23/2022 [id number] hammer toe: care instructions [email or web address] Not available 08/23/2022 10:14:28 Please have him brought back in if he develops redness, bruising, or a sore/ulcer on the foot or toe. 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 Referral for Pain of toe of right foot Referring Physician: Cassidy Birch, Urgent Care, Encounter Date: 08/23/2022 Problems Name Problem SNOMED Code Status Onset Date Resolution Date Notes Provider Name and Address Organization Details Recorded Time Asthma 845550722 Active 2022 YOSEPH De La Rosa [facility] 09:03:34 Glaucoma 99497280 Active 2022 NICOLE moser PA Karen [facility] 09:03:50 Hyperlipidemia 52972873 Active 2022 NICOLE DRAKE R null, PA - [facility] 09:04:04 Diabetes mellitus 20508817 Active 2022 NICOLE DRAKE R null, PA - [facility] 09:04:14 Irritable bowel syndrome 07298275 Active 2022 IRIS NOELLE R null, PA - [facility] 09:04:21 Mood disorder 38034728 Active 2022 NICOLE DRAKE R null, PA [...] /min 98 [degF] 156.21 cm 22 kg/m2 22222.6 g 127 mm[Hg] 84 mm[Hg] NICOLE TIFFANIEARIEL [...] SNOMED-CT Code Diagnosis ICD10 Code Diagnosis Note [id number] [address] [place] [id number] 04/15/2022 16:05:14 04/15/2022 16:29:21 [id number] [place] [address] 04/04/2022 19:29:19 04/04/2022 20:01:52 [id number] YOSEPH CANALES [address] [place] [id number] 08/23/2022 08:19:02 08/23/2022 10:19:41 Pain of toe of right foot [id number] M79.674 Does not appear infected.T here is that deformity - I am questionin g if it was rubbing against the shoe or sock was bunched which caused increased pressure. I advise that cautious with that and consider new shoes if continues to happen after shoes are removed. Patient needs to see sock ironer for foot care - toenails, evaluation s [...] Gutierrez Member ID Guarantor Name 04/15/2022 1 [facility] PLAN (MEDICAID HMO) JENNY Kuhn [id number] Aiden Kuhn 08/23/2022 1 [facility] PLAN (MEDICAID HMO) JENNY Kuhn [id number] Aiden Kuhn Notes Date Note Type Note [...] for Ibuprofen and perhaps referral to the sock ironer. He use to go to the sock ironer pre-covid. YOSEPH CANALES [address], [place], [address], [place] - [facility] 08/24/2022 08:42:42
== END 2024-08-12 09:33 | disposition home or self-care (01) ==
PROVIDERS: PCP Internal Medicine; Visit Provider Physician Assistant
DX: J45.901 Unspecified asthma with (acute) exacerbation (principal); J22 Unspecified acute lower respiratory infection

== ENCOUNTER 2024-08-12 09:30 | Outpatient (REF) | payer OTHER, SELFPAY ==
--- NOTE | ~2024-08-12 | XR_ITS ---
EXAMINATION: XR CHEST 2 VIEWS HISTORY: R05.9 - Cough, unspecified COMPARISON: Comparison is made with the prior examination dated 04/08/2024. FINDINGS: PA and lateral views of the chest are submitted. The lungs are expanded and clear. There is no pleural effusion, pneumothorax, or pulmonary vascular congestion. The heart is normal in size. The bones are intact. XR/XR chest 2V IMPRESSION: No acute cardiopulmonary abnormality. Electronically signed by: Carlos Alexander MD 08/12/2024 09:48 AM EDT
[2024-08-12 11:36] LABS: Influenza A PCR NEGATIVE (Negative); Influenza B PCR NEGATIVE (Negative); Resp Syncy Virus RNA Qual PCR NEGATIVE (Negative); SARS COV2 PCR INHOUSE NEGATIVE (Negative)
== END 2024-08-12 09:31 | disposition home or self-care (01) ==
LOC: HO.HMGCX 09:30
PROVIDERS: PCP Internal Medicine; Visit Provider Physician Assistant
DX: R05.9 Cough, unspecified (principal); R09.89 Other specified symptoms and signs involving the circulatory and respiratory systems
CPT/HCPCS: 0241U; 71046

== ENCOUNTER → 2024-08-12 09:33 | Outpatient (BNV) | payer OTHER, SELFPAY | PROVIDERS: PCP Internal Medicine; Visit Provider Radiology Diagnostic Radiology | DX: R05.9 Cough, unspecified (principal) | CPT/HCPCS: 71046 ==

== ENCOUNTER 2024-08-31 10:50 | Outpatient (AMB) | payer OTHER, SELFPAY ==
[2024-08-31 10:57] VITALS: BP 100/60; PULSE 97; RESP 18; TEMP 36.3; O2SAT 95; BMI 22.9
--- NOTE | 2024-08-31 10:57 | A.OFFPC_ITS ---
Vital Signs 08/31/24 10:57 Height 5 ft 1 in Weight 121 lb BMI 22.9 BP 100/60 Blood Pressure Location Lt brachial Position Sitting Respiration 18 Pulse 97 Pulse Source Pulse Oximeter Temp 97.3 F Temp Source Temporal Artery Scan Pulse Oximetry (%) 95 Oxygen Delivery Method Room Air Intake Visit Reasons: 09/28 [facility] Intake Note: Patient is here for a Pre-op for dental cleaning with sedation scheduled with [facility] on 09/28/2024. Pressure Test Operator Required: No Accompanied by: Combining Machine Operator; [email or web address] Allergies shellfish derived [SHELLFISH DERIVED] Allergy (Severe, Verified 08/31/24 16:26) ANAPHYLAXIS metformin Allergy (Intermediate, Verified 08/31/24 16:26) Diarrhea pollen extracts [POLLEN] Allergy (Intermediate, Verified 08/31/24 16:26) PER ALLERGY TESTING scallops [SCALLOPS] Allergy (Intermediate, Verified 08/31/24 16:26) PER ALLERGY TESTING tree and shrub pollen [TREE] Allergy (Intermediate, Verified 08/31/24 16:26) PER ALLERGY TESTING grass pollen Allergy (Mild, Verified 08/31/24 16:26) Unknown Medication List - Last Reconciled 08/31/24 by BONIFACIO Plascencia acetaminophen (Tylenol Extra Strength) 1,000 mg (2 x 500 mg) PO Q6H PRN 7 days [adult pull-ups As directed] albuterol sulfate 2.5 mg (3 mL) inhalation Q6H PRN 30 days alcohol swabs (Alcohol Pads) pad topical TID amoxicillin-pot clavulanate 875-125 mg 1 tab PO BID arformoterol 2 mL inhalation BID 30 days atorvastatin 40 mg PO DAILY blood sugar diagnostic As directed blood sugar diagnostic (FreeStyle Lite Strips) 1 strip miscellaneous BID blood-glucose meter (FreeStyle Lite Meter kit) As directed budesonide 0.5 mg (2 mL) PO BID cetirizine (Zyrtec) 10 mg PO DAILY 30 days dextromethorphan-guaifenesin 30-600 mg (Mucinex DM) 1 tab PO BID PRN 30 days diaper,brief,adult,disposable SIZE MEDIUM diazepam (Valium) 20 mg PO ONCE PRN diazepam mg PO dicyclomine 20 mg PO .every 8 hours PRN 30 days Dupixent Syringe (dupilumab) 300 mg (2 mL) subcut Q2W NS lancets (Pure Comfort Safety Lancets) 28 gauge miscellaneous DIRECTED 90 days lancets As directed lancets (Pure Comfort Safety Lancets) 30 gauge miscellaneous BID latanoprost 0.005% 1 drp ophthalmic (eye) BEDTIME miscellaneous medical supply 1 ea miscellaneous DAILY 30 days montelukast 10 mg PO QPM nebulizer and compressor As directed pioglitazone 15 mg PO QAM 30 days prednisolone acetate 1% 1 drp ophthalmic (eye) DAILY quetiapine (Seroquel) 50 mg PO BEDTIME risperidone 3 mg PO BEDTIME trazodone 150 mg PO BEDTIME zinc oxide 13% (Desitin Daily Defense) 1 appl topical BID PRN 30 days Tobacco use date assessed: 08/31/24 Dental Screening Dental Screen Date: 08/31/24 Did you have a dental visit in the last 12 months?: Yes Did you have a dental problem in the last 6 months where you did not have access to dental care?: No Was dental information given to patient?: Patient has dentist HPI 09/28 [facility] HPI Details The patient is a 49 year nonverbal male with special needs presenting with staff member from [facility]. The patient of Dr. Tony Patient is presenting for clearance for general anesthesia in order to have dental cleaning Procedure: Dental cleaning at [facility] Date: 09/28/2024 Anesthesia: Generalized. For staff member the patient had this procedure done in 2017; this was before he started seeing Cardiology Patient has stopped remembered denies any perioperative hypothermia or blood clotting disorders and the patient is not on any blood thinners Medical history is significant for moderate asthma, hearing loss, type 2 diabetes, cardiomyopathy, essential hypertension, allergic rhinitis due to pollen On exam bilateral nares boggy and erythematous with yellow drainage in nasal passages. Patient was started on Augmentin b.i.d. times 10 days. Lungs are clear, no shortness of breath noted, evidence of any pain, no heart palpitation and the patient is afebrile Discussed with the patient's staff member about needed cardiology clearance due to the patient cardiomyopathy. The patient was taken off metoprolol about 6 months to a year ago per staff member by cardiology. Reports that he had a recent echo and a Holter monitor and they are supposed to follow up with Cardiology on 09/02/2024 [facility] Medical History Acute exacerbation of chronic bronchitis Tubular adenoma Physical exam Hearing loss Sinus tachycardia Developmental delay, severe Asthma Mixed stress and urge urinary incontinence Chronic cough Essential hypertension Insomnia Allergic rhinitis due to pollen Pure hypercholesterolemia Diabetes mellitus Moderate asthma Surgical History Hx of colonoscopy History of surgery on arm History of circumcision Family History Mother No problems noted. Father Medical history unknown Maternal Uncle Diabetes Social History Housing: Other Alcohol intake: never Patient Tobacco Use Status: Never used Tobacco e-Cigarette/Vaping Use: Never Used Second Hand Smoke Exposure: No service: No Current occupational status: disabled Cognitive needs: No Hearing needs: No Vision needs: No Questionnaire Thrive Questionnaire Date Thrive assessed: 08/31/24 I am a: Parent/Caregiver What is your living situation today?: I have a steady place to live Within the past 12 months, did the food you bought not last and you didn't have the money to get more?: I choose not to answer this question Within the past 12 months, did you worry whether your food would run out before you got money to buy more?: I choose not to answer this question Do you have trouble paying for medicines?: No Do you have trouble getting transportation to medical appointments?: No Do you have trouble paying your heating and electricity bill?: No Do you have trouble taking care of your child, family member or friend?: No Do you have trouble with day-to-day activities such as bathing, preparing meals, shopping, managing finances, etc.?: No Are you currently unemployed and looking for a job?: No Are you interested in more education?: No Please select the resources that you would like help with: None Currently or been in a relationship where the following occur: No concerns reported THRIVE Score: 0 AUDIT C Alcohol Use Questionnaire (AUDIT-C) 1. How often do you have a drink containing alcohol?: Never Total Score: 0 DONOVAN-7 AMB Questionnaire DONOVAN-7 Date DONOVAN - 7 assessed: 06/17/24 Source: Developed by Drs. Carlos Collado, Nataliia Cano, Nilesh Rich and colleagues, with an educational rain from [employer]. Review of Systems Const Details: information gotten from staff member because the patient is nonverbal Denies headache(s) Eyes Denies loss of vision ENT Denies headache(s), Reports nasal congestion and Denies sore throat Card Denies chest pain, Denies leg edema and Denies lightheadedness Resp Reports cough (intermittently), Denies hemoptysis and Reports wheezing (intermittent) GI Denies abdominal pain, Denies melena, Denies constipation, Denies diarrhea and Denies vomiting Denies dysuria, Denies urinary frequency and Denies urinary urgency Musc Denies arthralgias and Denies joint swelling Neuro Denies behavioral changes, Denies headache(s) and Denies loss of vision Psych Denies anxiety, Denies behavioral changes, Denies depression and Denies panic attacks Harvinder/Lymph Denies easy bleeding and Denies easy bruising Aller/Immun Reports wheezing (intermittent) Physical exam (Primary Care) Vital Signs: Last Vital Signs Temp 97.3 F 08/31/24 10:57 Pulse 97 08/31/24 10:57 Resp 18 08/31/24 10:57 BP 100/60 08/31/24 10:57 Pulse Ox 95 08/31/24 10:57 Oxygen Delivery Method Room Air 08/31/24 10:57 BMI result Body Mass Index 22.9 Tobacco/Smoking Status: Tobacco use Status Tobacco use date assessed 08/31/24 08/31/24 11:15 Patient Tobacco Use Status Never used Tobacco 08/31/24 11:15 e-Cigarette/Vaping Use Never Used 08/31/24 11:15 Thrive Assessment: Date of Thrive Assessment Date Thrive assessed 08/31/24 08/31/24 11:15 Currently or been in a relationship where the following occur: No concerns reported Const General: healthy appearing, no acute distress, alert and awake Nutritional Appearance: well nourished HENMT Ears: TM's normal bilaterally General nose exam: Abnormal mucous membranes and turbinates present boggy and erythematous and Nasal discharge present purulent on the right Eyes Conjunctivae: conjunctivae normal Sclerae: sclerae normal Pupils: Equal, round and reactive pupils present Neck Neck: Yes no lymphadenopathy and Yes no JVD Thyroid: Thyroid normal Carotids: no bruits Resp Effort & Inspection: normal respiratory effort and not tachypneic Auscultation: no crackles, no rales, no rhonchi and no wheezes Cardio Rate: regular rate Rhythm: regular rhythm Heart sounds: no murmurs and normal S1 and S2 GI Palpation (GI): Soft to palpation, nontender, no hepatomegaly and no splen omegaly Auscultation: normal bowel sounds General: Yes no CVA tenderness Back/Spine/Pelvis Back: no CVA tenderness Skin General skin exam: no rashes or lesions noted and dry skin Neuro General: no focal motor deficits Cranial nerves: Yes Equal, round and reactive pupils present Speech: Other speech findings present (Neuro) (Patient is nonverbal) Gait exam (Neuro): Normal gait present Motor exam (neuro): no tremor noted Extrem Right upper extremity: full ROM Left upper extremity: full ROM Right lower extremity: full ROM; no edema Left lower extremity: full ROM; no edema Psych Affect: normal affect Attitude: cooperative Coding Level of Care Code Est Pt Level 4 (20901) Diagnoses Preoperative clearance Z01.818 Rhinosinusitis J32.9 Type 2 diabetes mellitus with unspecified complications E11.8 Cardiomyopathy, unspecified type I42.9 Cardiomyopathy type: unspecified Moderate persistent asthma without complication J45.40 Asthma complication type: uncomplicated Asthma persistence: persistent Essential hypertension I10 Time Spent (min) 41 Assessment & Plan Assessment & Plan (1) Preoperative clearance: Code(s): Z01.818 - Encounter for other preprocedural examination Category: Medical Plan: Upon clearance from Cardiology, fairly normal lab results and EKG, the patient would be at acceptable risk for the procedure. This note will be addendum when all the above information is available. Reviewed with the patient' caregiver that no procedure is completely free of risk and that this examination is to assist the surgeon in reviewing informed consent. The patient taking his morning medications with sips of water unless otherwise specified by his dentist/anesthesia provider. (2) Rhinosinusitis: Code(s): J32.9 - Chronic sinusitis, unspecified Category: Medical Plan: Augmentin 875-125 mg 1 tab p.o. b.i.d. times 10 days ordered, continue cetirizine 10 mg daily (3) Type 2 diabetes mellitus with unspecified complications: Code(s): E11.8 - Type 2 diabetes mellitus with unspecified complications Category: Medical Plan: Patient last A1c 5.9% on 06/17/2024. New labs ordered for preop clearance. Continue pioglitazone 15 mg q.a.m. Reinforced a low sugar/carbohydrate diet and activity as tolerated to the patient caregiver (4) Cardiomyopathy: Code(s): I42.9 - Cardiomyopathy, unspecified Category: Medical Qualifiers: Cardiomyopathy type: unspecified Qualified Code(s): I42.9 - Cardiomyopathy, unspecified Plan: The most echocardiogram showed a normal LV ejection fraction of 55-60% with grade 1 diastolic dysfunction with possible apical variant of hypertrophic. Improvement from a mildly reduced LVEF about 45-50%. Discussed with the patient's land classifier that cardiology we will have the clear the patient does well for the procedure. An EKG was also ordered with new labs to further evaluate. (5) Moderate asthma: Code(s): J45.909 - Unspecified asthma, uncomplicated Category: Medical Qualifiers: Asthma complication type: uncomplicated Asthma persistence: persistent Qualified Code(s): J45.40 - Moderate persistent asthma, uncomplicated Plan: Lungs are clear with no signs of respiratory distress. Some upper respiratory congestion-noted to be due to rhinosinusitis. The patient was started on Augmentin 875-125 mg 1 tab b.i.d. times 10 days. Continue on albuterol sulfate 2.5 mg inhalation q.6 hours p.r.n., Arformoterol 2 mL inhalation b.i.d., budesonide 0.5 mg b.i.d. besides the patient upper airway congestion, his breathing is stable. The patient continues to be monitored by Pulmonary and has an upcoming appointment (6) Essential hypertension: Code(s): I10 - Essential (primary) hypertension Category: Medical Plan: Reinforced low-sodium diet. Blood pressure is stable. Orders: Orders Comprehensive Met. Panel Today Z01.818 - Encounter for other preprocedural examination UA CC w/rflx Micro + Cult Today Z01.818 - Encounter for other preprocedural examination Hemoglobin A1c Today Z01.818 - Encounter for other preprocedural examination Complete Blood Count Auto Diff Today Z01.818 - Encounter for other preprocedural examination TSH reflex Free T4 Today Z01.818 - Encounter for other preprocedural examination Prothrombin Time INR Today Z01.818 - Encounter for other preprocedural examination ECG 12 lead EKG Today Z01.818 - Encounter for other preprocedural examination Medications: New amoxicillin-pot clavulanate 875-125 mg 1 tab PO BID 20 tabs 0RF J32.9 - Chronic sinusitis, unspecified
--- OUTSIDE RECORDS SUMMARY | 2024-08-31 13:01 | XMS_ITS | Data Portability ---
Author Organization YOSEPH Onofre s, [address] Address [address] [place] [address] Assessment No assessment recorded. Plan of Treatment Reminders Order Date Submit Date Provider Last Modified By Organization Details Last Modified Time Details Appointments None recorded. Lab None recorded. Referral cigarette packing machine operator referral 2022 023 [email or web address] Not available 10:19:41 Procedures None recorded. Surgeries None recorded. Imaging None recorded. Medication Orders ibuprofen 200 mg tablet 2022 023 [facility], [address] [place] [address], [id number], 10:17:29 Patient TargetsNo targets recorded. Patient Instructions Encounter Date Encounter Id Patient Instructions Last Modified By Organization Details Last Modified Time 08/23/2022 [id number] hammer toe: care instructions [email or web address] Not available 08/23/2022 10:14:28 Please have him brought back in if he develops redness, bruising, or a sore/ulcer on the foot or toe. 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 for Pain of toe of right foot Referring Physician: Cassidy Birch, Urgent Care, Encounter Date: 08/23/2022 Problems Name Problem SNOMED Code Status Onset Date Resolution Date Notes Provider Name and Address Organization Details Recorded Time Asthma 190537365 Active 2022 YOSEPH De La Rosa [facility] 3 09:03:34 Glaucoma 10884768 Active 2022 NICOLE moser PA Karen [facility] 09:03:50 Hyperlipidemia 13297526 Active 2022 NICOLE DRAKE R null, [place] - [facility] 3 09:04:04 Diabetes mellitus 55684944 Active 2022 NICOLE DRAKE R null, [place] - [facility] 3 09:04:14 Irritable bowel syndrome 06465300 Active 2022 IRIS NOELLE R null, PA - [facility] 3 09:04:21 Mood disorder 85760998 Active 2022 NICOLE DRAKE R null, PA [...] /min 98 [degF] 156.21 cm 22 kg/m2 87271.6 g 127 mm[Hg] 84 mm[Hg] NICOLE TIFFANIEARIEL [...] SNOMED-CT Code Diagnosis ICD10 Code Diagnosis Note [id number] [address] [facility] [place] [address] 04/15/2022 16:05:14 04/15/2022 16:29:21 [id number] [address] [place] [address] 04/04/2022 19:29:19 04/04/2022 20:01:52 [id number] YOSEPH CANALES [address] [facility] [place] [address] 08/23/2022 08:19:02 08/23/2022 10:19:41 Pain of toe of right foot 8721852551 50536 M79.674 Does not appear infected.T here is that deformity - I am questionin g if it was rubbing against the shoe or sock was bunched which caused increased pressure. I advise that cautious with that and consider new shoes if continues to happen after shoes are removed. Patient needs to see cigarette packing machine operator for foot care - toenails, evaluation s [...] Gutierrez Member ID Guarantor Name 04/15/2022 1 [facility] PLAN (MEDICAID HMO) JENNY Kuhn [id number] Aiden Kuhn 08/23/2022 1 [facility] PLAN (MEDICAID HMO) JENNY Kuhn [id number] Aiden Kuhn Notes Date Note Type Note [...] for Ibuprofen and perhaps referral to the cigarette packing machine operator. He use to go to the cigarette packing machine operator pre-covid. YOSEPH CANALES [address], [place], [address], [place] - [facility] 08/24/2022 08:42:42
== END 2024-08-31 13:29 | disposition home or self-care (01) ==
LOC: HO.HMCH 10:51
PROVIDERS: PCP Internal Medicine
DX: Z01.818 Encounter for other preprocedural examination (principal); J32.9 Chronic sinusitis, unspecified; E11.8 Type 2 diabetes mellitus with unspecified complications; I42.9 Cardiomyopathy, unspecified; J45.40 Moderate persistent asthma, uncomplicated; I10 Essential (primary) hypertension

== ENCOUNTER → 2024-08-31 10:50 | Outpatient (BNVA) | payer OTHER, SELFPAY | PROVIDERS: PCP Internal Medicine | DX: Z01.818 Encounter for other preprocedural examination (principal); J32.9 Chronic sinusitis, unspecified; E11.8 Type 2 diabetes mellitus with unspecified complications; I42.9 Cardiomyopathy, unspecified; J45.40 Moderate persistent asthma, uncomplicated; I10 Essential (primary) hypertension | CPT/HCPCS: 99212 ==

== ENCOUNTER 2024-09-01 16:08 | Outpatient (REF) | payer OTHER, SELFPAY ==
[2024-09-01 16:32] LABS: MANUAL DIFF FLAG NO
[2024-09-01 17:31] LABS: Estimated Average Glucose 123 mg/dL; Hemoglobin A1C 149.7786 umol/L; Hemoglobin A1c % 5.9 % (<6.0); Total Hemoglobin (HGBA1C) 3690.8343 umol/L
[2024-09-01 17:35] LABS: Alanine Aminotransferase 35 U/L (0-40); Albumin Level 3.8 g/dL (3.5-5.0); Alkaline Phosphatase 51 U/L (39-117); Anion Gap 11 (12-20); Aspartate Amino Transferase 35 U/L (5-37); Blood Urea Nitrogen 19 mg/dL (9-16); Calcium 8.9 mg/dL (8.4-10.2); Carbon Dioxide 23 mmol/L (22-29); Chloride 110 mmol/L (96-108); Estimated Glomerular Filt Rate > 60; Glucose Random 93 mg/dL (60-115); Sodium 140 mmol/L (135-145); Total Protein 6.8 g/dL (6.5-8.0)
[2024-09-01 17:36] LABS: Basophils Percent Auto 0.6 % (0-2); Eosinophils Absolute Auto 0.2 X10*3/uL (0.0-0.4); Hematocrit 41.2 % (42.0-52.0); Hemoglobin 13.8 g/dl (14.0-18.0); Lymphocytes Absolute Auto 1.7 X10*3/uL (1.2-4.9); Lymphocytes Percent Auto 33.9 % (20-40); Mean Corpuscular HGB Conc 33.5 g/dl (31.0-36.0); Mean Corpuscular Hemoglobin 30.9 pg (27.0-33.0); Mean Corpuscular Volume 92.2 fL (80.0-98.0); Mean Platelet Volume 10.6 fL (9.4-12.4); Monocytes Absolute Auto 0.9 X10*3/uL (0.1-1.2); Monocytes Percent Auto 18.3 % (2-11); Neutrophils Absolute Auto 2.2 x10*3/uL (2.0-8.3); Neutrophils Percent Auto 44.2 % (45-73); Platelet Count 149 X10*3/uL (160-400); Red Blood Count 4.47 X10*6/uL (4.60-5.80); Red Cell Distribution Width 13.4 % (11.0-16.0)
[2024-09-01 17:47] LABS: INTERNATIONAL NORM RATIO 1.1 (0.9-1.1); Prothrombin Time 13.1 SEC (10.9-12.4)
[2024-09-01 17:49] LABS: TSH reflex Free T4 1.18 uIU/mL (0.32-4.0)
--- OUTSIDE RECORDS SUMMARY | 2024-09-01 18:01 | XMS_ITS | Data Portability ---
Author Organization [place] [facility] Address [address] [place] [address] Care Team Providers Care Cable Layer Name Role Phone DIDIER FARRAR Primary Care Provider Assessment Encounter Date Assessment Date Assessment LastModified by Organization Details LastModified Time 12/06/2018 12/06/2018 Overview/History : 43-year-old male, who is [facility] to [facility] with a past medical history that includes but not limited to asthma, diabetes, Hypertension, high cholesterol, developmentally delayed, non verbal, was evaluated for complaints of cough over the past 1-2 days. The patient [facility] in a jail and the history was obtained from the [...] nasal spray,kerry pension 2018 019 INTERFACE [id number], [address] [place], [address], 9 12:59:31 Patient TargetsNo targets recorded. Patient Instructions Encounter Date Encounter Id Patient Instructions Last Modified By Organization Details Last Modified Time 12/06/2018 [id number] Use the DuoNebs every 4 hours as [...] propionate 50 mcg/actuati on nasal spray,suspe nsion [place] 1 spray twice a day by intranasa [...] /min 126 mm[Hg] 64 mm[Hg] Not Available [facility] 12:41:58 Social History Question Answer Notes LastModified by Organizat ion Details LastModified Time Tobacco Smoking Status Never Smoker SALVADOR CRAWFORD, AICHA [address], [place], [address], [place] [facility] 12/06/2018 12:53:28 Within The [...] Response Diabetes Y Coronary Artery Disease N High Cholesterol Y Cancer N Pulmonary Embolism N Stroke N Hypertension Y Asthma Y COPD N Depression N Kidney Disease N Past Encounters Encounter ID Performer Location Encounter Start Date Encounter Closed Date Diagnosis/Indication Diagnosis SNOMED-CT Code Diagnosis ICD10 Code Diagnosis Note [id number] SALVADOR CRAWFORD NP [facility] [address] [place] [address] 12/06/2018 12:39:06 12/07/2018 15:50:17 Cough 77910495 R05 Seasonal a llergic rhinitis 669133934 J30.2 Asthma 464670362 J45.90 9 Health Concerns Section Related Observation LastModified by Organization Detai ls LastModified Time None Recorded Concern Status LastModified by Organization Details LastModified Time None Recorded Advance Directives Directive None Recorded Payers Encounter Date Sequence Insurance Name Policy Number Policy Gutierrez Covered Member ID Gutierrez Member ID Guarantor Name 12/06/2018 1 [place] Aiden Kuhn [id number] [employer] Notes Date Note Type Note Provider Name and Address Organization Details Recorded Time 12/06/2018 text/html 43-year-old male, who is new to , with a past medical history that includes but not limited to diabetes, asthma, seasonal allergies, autistic/develop mentally delayed, was evaluated at a jail for complaints of a cough over the past 1-2 days. The patient was given a nebulizer this morning per staff this seemed to help with the cough. The patient is nonverbal and the history was obtained from the jail staff. They report no fever, chills, sweats, shortness of breath, chest pain, abdominal pain, bowel or bladder issues, arthralgia, myalgias or any rashes. No sick exposures. SALVADOR CRAWFORD NP [address] [place] [address] [place], [place], [address], [place] [facility] 12/06/2018 13:22:13
--- OUTSIDE RECORDS SUMMARY | 2024-09-01 18:01 | XMS_ITS | Data Portability ---
Author Organization YOSEPH Onofre s, [address] Address [address] [place] [address] Assessment No assessment recorded. Plan of Treatment Reminders Order Date Submit Date Provider Last Modified By Organization Details Last Modified Time Details Appointments None recorded. Lab None recorded. Referral casino operations supervisor referral 2022 023 [email or web address] Not available 10:19:41 Procedures None recorded. Surgeries None recorded. Imaging None recorded. Medication Orders ibuprofen 200 mg tablet 2022 023 [facility], [address] [place] [address], [id number], 10:17:29 Patient TargetsNo targets recorded. Patient Instructions Encounter Date Encounter Id Patient Instructions Last Modified By Organization Details Last Modified Time 08/23/2022 [id number] hammer toe: care instructions [email or web address] Not available 08/23/2022 10:14:28 Please have him brought back in if he develops redness, bruising, or a sore/ulcer on the foot or toe. 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 for Pain of toe of right foot Referring Physician: Cassidy Birch, Urgent Care, Encounter Date: 08/23/2022 Problems Name Problem SNOMED Code Status Onset Date Resolution Date Notes Provider Name and Address Organization Details Recorded Time Asthma 063698425 Active 2022 YOSEPH De La Rosa [facility] 3 09:03:34 Glaucoma 05263050 Active 2022 NICOLE moser PA Karen [facility] 09:03:50 Hyperlipidemia 29364688 Active 2022 NICOLE DRAKE R null, PA - [facility] 3 09:04:04 Diabetes mellitus 29609434 Active 2022 NICOLE DRAKE R null, PA - [facility] 3 09:04:14 Irritable bowel syndrome 99235997 Active 2022 IRIS NOELLE R null, PA - [facility] 3 09:04:21 Mood disorder 01171113 Active 2022 NICOLE DRAKE R null, PA [...] /min 98 [degF] 156.21 cm 22 kg/m2 43454.6 g 127 mm[Hg] 84 mm[Hg] NICOLE TIFFANIEARIEL [...] SNOMED-CT Code Diagnosis ICD10 Code Diagnosis Note [id number] [address] [facility] [place] [address] 04/15/2022 16:05:14 04/15/2022 16:29:21 [id number] [address] [place] [address] 04/04/2022 19:29:19 04/04/2022 20:01:52 [id number] YOSEPH CANALES [address] [facility] [place] [address] 08/23/2022 08:19:02 08/23/2022 10:19:41 Pain of toe of right foot 8140444810 81906 M79.674 Does not appear infected.T here is that deformity - I am questionin g if it was rubbing against the shoe or sock was bunched which caused increased pressure. I advise that cautious with that and consider new shoes if continues to happen after shoes are removed. Patient needs to see casino operations supervisor for foot care - toenails, evaluation s [...] Gutierrez Member ID Guarantor Name 04/15/2022 1 [facility] PLAN (MEDICAID HMO) JENNY Kuhn [id number] Aiden Kuhn 08/23/2022 1 [facility] PLAN (MEDICAID HMO) JENNY Kuhn [id number] Aiden Kuhn Notes Date Note Type Note [...] for Ibuprofen and perhaps referral to the casino operations supervisor. He use to go to the casino operations supervisor pre-covid. YOSEPH CANALES [address], [place], [address], [place] - [facility] 08/24/2022 08:42:42
== END 2024-09-01 16:09 | disposition home or self-care (01) ==
LOC: HO.LAB 16:08
PROVIDERS: PCP Internal Medicine
DX: Z01.812 Encounter for preprocedural laboratory examination (principal)
CPT/HCPCS: 36415; 80053; 83036; 84443; 85025; 85610

== ENCOUNTER → 2024-09-02 13:57 | Outpatient (REF) | payer OTHER, SELFPAY ==
--- NOTE | 2024-09-02 14:00 | ECG_ITS ---
Test Reason : Z01.818 PREOP Blood Pressure : */* mmHG Vent. Rate : 85 BPM Atrial Rate : 85 BPM P-R Int : 138 ms QRS Dur : 76 ms QT Int : 372 ms P-R-T Axes : 83 71 62 degrees QTcB Int : 442 ms Normal sinus rhythm Normal ECG When compared with ECG of 16-Oct-2017 14:50, No significant change was found Referred By: Juan Jose Tena Electronically Signed By: RENÉ MCCARTHY
== END ==
LOC: HO.CARD 13:57
PROVIDERS: PCP Internal Medicine
DX: Z01.818 Encounter for other preprocedural examination (principal); I42.9 Cardiomyopathy, unspecified; R00.0 Tachycardia, unspecified; F79 Unspecified intellectual disabilities
CPT/HCPCS: 93005; 99212

== ENCOUNTER 2024-09-02 14:14 | Outpatient (AMB) | payer OTHER, SELFPAY ==
--- NOTE | 2024-09-02 14:29 | MHC.OFFVIS ---
Vital Signs 09/02/24 14:31 Height 5 ft 1 in Weight 123 lb 0.287 oz BMI 23.2 BP 100/62 Blood Pressure Location Rt brachial Position Sitting Pulse 62 Pulse Source Pulse Oximeter Intake Visit Reasons: 6m f/u testing r/s fr 08/16 Intake Note: 6 mth f/up/ Holter/echo/ pt needs clearance dentis cleaning. Door To Door Selling Agent Required: No Door To Door Selling Agent Name: staff Mud Temperer: Mud Temperer Present Accompanied by: Other Relationship Allergies shellfish derived [SHELLFISH DERIVED] Allergy (Severe, Verified 08/31/24 16:26) ANAPHYLAXIS metformin Allergy (Intermediate, Verified 08/31/24 16:26) Diarrhea pollen extracts [POLLEN] Allergy (Intermediate, Verified 08/31/24 16:26) PER ALLERGY TESTING scallops [SCALLOPS] Allergy (Intermediate, Verified 08/31/24 16:26) PER ALLERGY TESTING tree and shrub pollen [TREE] Allergy (Intermediate, Verified 08/31/24 16:26) PER ALLERGY TESTING grass pollen Allergy (Mild, Verified 08/31/24 16:26) Unknown Medication List - Last Reconciled 09/02/24 by Margarito Cerda NP acetaminophen (Tylenol Extra Strength) 1,000 mg (2 x 500 mg) PO Q6H PRN 7 days [adult pull-ups As directed] albuterol sulfate 2.5 mg (3 mL) inhalation Q6H PRN 30 days alcohol swabs (Alcohol Pads) pad topical TID amoxicillin-pot clavulanate 875-125 mg 1 tab PO BID arformoterol 2 mL inhalation BID 30 days atorvastatin 40 mg PO DAILY blood sugar diagnostic As directed blood sugar diagnostic (FreeStyle Lite Strips) 1 strip miscellaneous BID blood-glucose meter (FreeStyle Lite Meter kit) As directed budesonide 0.5 mg (2 mL) PO BID cetirizine (Zyrtec) 10 mg PO DAILY 30 days dextromethorphan-guaifenesin 30-600 mg (Mucinex DM) 1 tab PO BID PRN 30 days diaper,brief,adult,disposable SIZE MEDIUM diazepam (Valium) 20 mg PO ONCE PRN diazepam mg PO dicyclomine 20 mg PO .every 8 hours PRN 30 days Dupixent Syringe (dupilumab) 300 mg (2 mL) subcut Q2W NS lancets (Pure Comfort Safety Lancets) 28 gauge miscellaneous DIRECTED 90 days lancets As directed lancets (Pure Comfort Safety Lancets) 30 gauge miscellaneous BID latanoprost 0.005% 1 drp ophthalmic (eye) BEDTIME miscellaneous medical supply 1 ea miscellaneous DAILY 30 days montelukast 10 mg PO QPM nebulizer and compressor As directed pioglitazone 15 mg PO QAM 30 days prednisolone acetate 1% 1 drp ophthalmic (eye) DAILY quetiapine (Seroquel) 50 mg PO BEDTIME risperidone 3 mg PO DAILY trazodone 150 mg PO BEDTIME zinc oxide 13% (Desitin Daily Defense) 1 appl topical BID PRN 30 days HPI Comments Details: This is a 49-year-old male patient with a history of cardiomyopathy, sinus tachycardia, hyperlipidemia, and diabetes who also has severe developmental delay and is nonverbal. Patient is accompanied by his postal service sectional center manager for today's follow-up visit. Patient presents in no acute distress and is sitting on the exam table comfortably. The postal service sectional center manager reports that patient has been doing well with no signs of distress. The purpose of this visit is to review the results of the echo and the Holter monitor wheelchair are done annually for this patient. The case ago also confirmed with the patient has been compliant with his medications. They are also requesting for a cardiac clearance for general anesthesia undergoing a dental cleaning. [facility] Medical History Acute exacerbation of chronic bronchitis Tubular adenoma Physical exam Hearing loss Sinus tachycardia Developmental delay, severe Asthma Mixed stress and urge urinary incontinence Chronic cough Essential hypertension Insomnia Allergic rhinitis due to pollen Pure hypercholesterolemia Diabetes mellitus Moderate asthma Surgical History Hx of colonoscopy History of surgery on arm History of circumcision Family History Mother No problems noted. Father Medical history unknown Maternal Uncle Diabetes Social History Housing: Other Alcohol intake: never Patient Tobacco Use Status: Never used Tobacco e-Cigarette/Vaping Use: Never Used Second Hand Smoke Exposure: No service: No Current occupational status: disabled Cognitive needs: No Hearing needs: No Vision needs: No Review of Systems Const Denies chills, Denies fatigue, Denies fever(s), Denies frequent falls, Denies weakness, Denies weight gain and Denies weight loss ENT Denies dizziness Card Denies chest pain, Denies leg edema, Denies lightheadedness, Denies palpitations, Denies dyspnea and Denies dyspnea on exertion Resp Denies cough, Denies dyspnea and Denies dyspnea on exertion GI Denies hematochezia Musc Denies abnormal gait, Denies muscle weakness, Denies numbness, Denies radiating pain into limb and Denies tingling Neuro Denies abnormal gait, Denies dizziness, Denies frequent falls, Denies numbness, Denies tingling and Denies weakness Endo Denies fatigue and Denies palpitations Physical Exam Vital Signs: Last Vital Signs Pulse 62 09/02/24 14:31 BP 100/62 09/02/24 14:31 BMI result Body Mass Index 23.2 Const General: cooperative, healthy appearing, comfortable and no acute distress HEENT Head: Yes normal to inspection Neck Neck: Yes normal visual inspection, Yes trachea midline and Yes supple Chest Chest palpation & inspection: normal inspection of the chest Resp Effort & Inspection: normal respiratory effort Auscultation: clear to auscultation bilaterally, no crackles, no rales, no rhonchi and no wheezes Cardio Jugular venous distension: no JVD Palpation: normal PMI Rate: regular rate Rhythm: regular rhythm Heart sounds: S1 normal heart sound present, S2 normal heart sound present, no click, no gallops, no murmurs and no rubs Peripheral pulses: Peripheral pulses 2+ throughout GI Inspection: Yes normal to inspection Palpation (GI): Soft to palpation Auscultation: normal bowel sounds Skin General skin exam: no rashes or lesions noted Extrem General: Yes normal to inspection, No no pedal edema and No calf tenderness Psych Appearance: grossly normal Assessment & Plan Assessment & Plan (1) Cardiomyopathy: Code(s): I42.9 - Cardiomyopathy, unspecified Category: Medical Qualifiers: Cardiomyopathy type: unspecified Qualified Code(s): I42.9 - Cardiomyopathy, unspecified Plan: 08/02/2024-echo study showed patient's EF improved to 55-60% with grade 1 diastolic dysfunction. There is a mention about a possible apical variant of hypertrophic cardiomyopathy, however due to movement during the test, apex could not be viewed well per Dr. Roper. Prior echo showed an EF of 40-45%. Clinically euvolemic. Since improvement in the EF, with no presenting symptoms we will continue to monitor patient periodically with repeat echos. (2) Sinus tachycardia: Code(s): R00.0 - Tachycardia, unspecified Category: Medical Plan: 08/02/2024-Holter monitor showed underlying sinus rhythm with an average heart rate of 83 beats per minute. Rare PACs with multiple short runs of SVT longest lasting 13 beats at 141 beats per minute. For this, we could consider starting patient on low dose beta malissa however, have to be careful given his low normal blood pressure readings today and in the past. We will start the patient on a low dose metoprolol therapy. Advised postal service sectional center manager to have staff monitor his blood pressures to keep a log of it to bring to his next visit. (3) Intellectual disability: Code(s): F79 - Unspecified intellectual disabilities Category: Medical Plan: The patient is nonverbal and with his developmental delay difficult to gather any specific symptoms or concerns started see from the portion. (4) Preop cardiovascular exam: Code(s): Z01.810 - Encounter for preprocedural cardiovascular examination Plan: The case sealer mentions that the patient is scheduled for a dental cleaning under general anesthesia. Given the patient's current health status and findings from echo, Holter, and EKG, patient may proceed with the procedure with the consideration that patient is at a low cardiac risk. We will follow up with the patient in 3 months with a repeat Holter. This note was generated using voice recognition software. While every effort has been made to ensure accuracy and proper air crew member, there may be occasional errors that could affect the content or meaning of the described symptoms. Orders: Orders ECG 3 day holter monitor 2 Months R00.0 - Tachycardia, unspecified CA echo transthoracic complete 11 Months I42.9 - Cardiomyopathy, unspecified Medications: New metoprolol succinate ER 12.5 mg (1/2 x 25 mg) PO DAILY 60 tabs 1RF Coding Level of Care Code Est Pt Level 4 (35967) Complex EM visit Add On G2211 Diagnoses Cardiomyopathy, unspecified type I42.9 Cardiomyopathy type: unspecified Sinus tachycardia R00.0 Intellectual disability F79 Preop cardiovascular exam Z01.810 Time Spent (min) 32 Comment Time spent in reviewing the chart, test results, assessment, counseling and documentation.
[2024-09-02 14:31] VITALS: BP 100/62; PULSE 62; BMI 23.2
== END 2024-09-02 15:25 | disposition home or self-care (01) ==
PROVIDERS: PCP Internal Medicine
DX: I42.9 Cardiomyopathy, unspecified (principal); R00.0 Tachycardia, unspecified; F79 Unspecified intellectual disabilities; Z01.810 Encounter for preprocedural cardiovascular examination
CPT/HCPCS: 93010; 99214; G2211

== ENCOUNTER 2024-09-06 17:00 | Outpatient (REF) | payer OTHER, SELFPAY ==
[2024-09-06 17:10] LABS: Appearance Urine Clear; Color Urine Yellow; Glucose Urine UA Negative (Negative); Leukocyte Esterase Urine Negative (Negative); Nitrite Urine Negative (Negative); PH 6.5 (5.0-9.0); Specific Gravity - Urine 1.015 (1.005-1.025); Urine Blood Negative (Negative); Urine Ketones Negative (Negative); Urine Protein Negative (Neg-Trace)
[2024-09-06 17:56] LABS: Creatinine Urine 97.53 mg/dL; Microalbumin Urine < 5.0 mg/L
--- OUTSIDE RECORDS SUMMARY | 2024-09-06 18:51 | XMS_ITS | Data Portability ---
Author Organization YOSEPH Onofre s, [address] Address [address] [place] [address] Assessment No assessment recorded. Plan of Treatment Reminders Order Date Submit Date Provider Last Modified By Organization Details Last Modified Time Details Appointments None recorded. Lab None recorded. Referral distillery worker referral 2022 023 [email or web address] Not available 10:19:41 Procedures None recorded. Surgeries None recorded. Imaging None recorded. Medication Orders ibuprofen 200 mg tablet 2022 023 [facility], [address] [place] [address], [id number], 10:17:29 Patient TargetsNo targets recorded. Patient Instructions Encounter Date Encounter Id Patient Instructions Last Modified By Organization Details Last Modified Time 08/23/2022 [id number] hammer toe: care instructions Not available 08/23/2022 10:14:28 Please have him brought back in if he develops redness, bruising, or a sore/ulcer on the foot or toe. 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 Pain of toe of right foot Referring Physician: Cassidy Birch, Urgent Care, Encounter Date: 08/23/2022 Problems Name Problem SNOMED Code Status Onset Date Resolution Date Notes Provider Name and Address Organization Details Recorded Time Asthma 780442291 Active 2022 YOSEPH De La Rosa [facility] 3 09:03:34 Glaucoma 90430734 Active 2022 NICOLE moser PA Karen [facility] 09:03:50 Hyperlipidemia 62323894 Active 2022 NICOLE DRAKE R null, [place] - [facility] 3 09:04:04 Diabetes mellitus 93270763 Active 2022 NICOLE DRAKE R null, [place] - [facility] 3 09:04:14 Irritable bowel syndrome 85350359 Active 2022 IRIS NOELLE R null, [place] - [facility] 3 09:04:21 Mood disorder 90276069 Active 2022 NICOLE DRAKE R null, PA [...] /min 98 [degF] 156.21 cm 22 kg/m2 17817.6 g 127 mm[Hg] 84 mm[Hg] NICOLE TIFFANIEARIEL [...] SNOMED-CT Code Diagnosis ICD10 Code Diagnosis Note [id number] [address] [facility] [place] [address] 04/15/2022 16:05:14 04/15/2022 16:29:21 [id number] [address] [place] [address] 04/04/2022 19:29:19 04/04/2022 20:01:52 [id number] YOSEPH CANALES [address] [facility] [place] [address] 08/23/2022 08:19:02 08/23/2022 10:19:41 Pain of toe of right foot 3228324153 98925 M79.674 Does not appear infected.T here is that deformity - I am questionin g if it was rubbing against the shoe or sock was bunched which caused increased pressure. I advise that cautious with that and consider new shoes if continues to happen after shoes are removed. Patient needs to see distillery worker for foot care - toenails, evaluation s [...] Gutierrez Member ID Guarantor Name 04/15/2022 1 [facility] PLAN (MEDICAID HMO) JENNY Kuhn [id number] Aiden Kuhn 08/23/2022 1 [facility] PLAN (MEDICAID HMO) JENNY Kuhn [id number] Aiden Kuhn Notes Date Note Type Note [...] for Ibuprofen and perhaps referral to the distillery worker. He use to go to the distillery worker pre-covid. YOSEPH CANALES [address], [place], [address], [place] - [facility] 08/24/2022 08:42:42
--- OUTSIDE RECORDS SUMMARY | 2024-09-06 18:52 | XMS_ITS | Data Portability ---
Author Organization [place] - [facility] Address [address] [place] [address] Care Team Providers Care Back Gray Cloth Washer Name Role Phone DIDIER FARRAR Primary Care Provider Assessment Encounter Date Assessment Date Assessment LastModified by Organization Details LastModified Time 12/06/2018 12/06/2018 Overview/History : 43-year-old male, who is [facility] to [facility] with a past medical history that includes but not limited to asthma, diabetes, Hypertension, high cholesterol, developmentally delayed, non verbal, was evaluated for complaints of cough over the past 1-2 days. The patient lives in a care home and the history was obtained from the [...] nasal spray,kerry pension 2018 019 INTERFACE [id number], [address] [place], [address], 9 12:59:31 Patient TargetsNo targets recorded. Patient Instructions Encounter Date Encounter Id Patient Instructions Last Modified By Organization Details Last Modified Time 12/06/2018 [id number] Use the DuoNebs every 4 hours as [...] propionate 50 mcg/actuati on nasal spray,suspe nsion [place] 1 spray twice a day by intranasa [...] /min 126 mm[Hg] 64 mm[Hg] Not Available [facility] 12:41:58 Social History Question Answer Notes LastModified by Organizat ion Details LastModified Time Tobacco Smoking Status Never Smoker SALVADOR CRAWFORD, AICHA [address], [place], [address], [place] [facility] 12/06/2018 12:53:28 Within The [...] family hx reported Medical History Condition Response Coronary Artery Disease N Depression N COPD N Diabetes Y Cancer N Stroke N Asthma Y High Cholesterol Y Pulmonary Embolism N Hypertension Y Kidney Disease N Past Encounters Encounter ID Performer Location Encounter Start Date Encounter Closed Date Diagnosis/Indication Diagnosis SNOMED-CT Code Diagnosis ICD10 Code Diagnosis Note [id number] SALVADOR CRAWFORD NP [facility] [address] [place] [address] 12/06/2018 12:39:06 12/07/2018 15:50:17 Cough 94780472 R05 Seasonal a llergic rhinitis 778067404 J30.2 Asthma 439856396 J45.90 9 Health Concerns Section Related Observation LastModified by Organization Detai ls LastModified Time None Recorded Concern Status LastModified by Organization Details LastModified Time None Recorded Advance Directives Directive None Recorded Payers Encounter Date Sequence Insurance Name Policy Number Policy Gutierrez Covered Member ID Gutierrez Member ID Guarantor Name 12/06/2018 1 [place] Aiden Kuhn [id number] Altheos Notes Date Note Type Note Provider Name and Address Organization Details Recorded Time 12/06/2018 text/html 43-year-old male, who is new to , with a past medical history that includes but not limited to diabetes, asthma, seasonal allergies, autistic/develop mentally delayed, was evaluated at a care home for complaints of a cough over the past 1-2 days. The patient was given a nebulizer this morning per staff this seemed to help with the cough. The patient is nonverbal and the history was obtained from the care home staff. They report no fever, chills, sweats, shortness of breath, chest pain, abdominal pain, bowel or bladder issues, arthralgia, myalgias or any rashes. No sick exposures. SALVADOR CRAWFORD NP [address] [place] [address] Gisela, [place], [address], [place] [facility] 12/06/2018 13:22:13
== END 2024-09-06 17:01 | disposition home or self-care (01) ==
LOC: HO.LNP 17:00
PROVIDERS: Internal Medicine
DX: Z01.818 Encounter for other preprocedural examination (principal); R80.9 Proteinuria, unspecified
CPT/HCPCS: 81003; 82570

== ENCOUNTER 2024-09-10 09:15 | Outpatient (AMB) | payer OTHER, SELFPAY ==
[2024-09-10 09:17] VITALS: BP 110/60; PULSE 109; O2SAT 97; BMI 23.2
--- NOTE | 2024-09-10 09:17 | A.OFFVIS_ITS ---
Vital Signs 09/10/24 09:17 Height 5 ft 1 in Weight 123 lb BMI 23.2 BP 110/60 Blood Pressure Location Rt brachial Position Sitting Pulse 109 H Pulse Source Doppler Pulse Oximetry (%) 97 Oxygen Delivery Method Room Air Intake Visit Reasons: Cough Allergies shellfish derived [SHELLFISH DERIVED] Allergy (Severe, Verified 09/10/24 09:22) ANAPHYLAXIS metformin Allergy (Intermediate, Verified 09/10/24 09:22) Diarrhea pollen extracts [POLLEN] Allergy (Intermediate, Verified 09/10/24 09:22) PER ALLERGY TESTING scallops [SCALLOPS] Allergy (Intermediate, Verified 09/10/24 09:22) PER ALLERGY TESTING tree and shrub pollen [TREE] Allergy (Intermediate, Verified 09/10/24 09:22) PER ALLERGY TESTING grass pollen Allergy (Mild, Verified 09/10/24 09:22) Unknown HPI Comments Details: the patient is a 47-year-old gentleman with severe developmental delay, nonverbal and also history of allergic asthma. the patient is here today for follow-up visit. Overall he has been doing well on the Dupixent injections. several weeks ago the patient did start developing worsening cough and chest congestion. He was taken to an urgent care where he was diagnosed with bronchitis. He was given antibiotics and a prednisone taper. He has now completed the course and is back to his baseline. He has not required any rescue inhalers or nebulized therapy. The patient does continue his Dupixent injections with good effects. Explained to the caregivers at the [facility] will only help with allergic type of respiratory symptoms. This is likely to be more infectious process that activated his asthma. Will continue with current therapy at this time. evaluated also will request chest x-ray at that time. 09/10/2024 the the patient is here for pulmonary follow-up visit. The patient overall is doing well. He continues on Dupixent. Dupixent therapy has been very affecting beneficial. Athough, developing some conjuctivitis. Mild to moderate. Currently on steroid eye drops. We will monitor it closely. If it worsens, he may have to change the dupixent. He did required a course of prednisone last month due to a viral illness. Now back to his baseline. His cough is intermittent and improved. The patient continues with Brovana and budesonide twice a day. Patient also continues with his nasal therapy. [facility] Medical History (Updated 09/12/24 @ 21:30 by Michael Mendes MD) Allergies Acute exacerbation of chronic bronchitis Tubular adenoma Physical exam Hearing loss Sinus tachycardia Developmental delay, severe Asthma Mixed stress and urge urinary incontinence Chronic cough Essential hypertension Insomnia Allergic rhinitis due to pollen Pure hypercholesterolemia Diabetes mellitus Moderate asthma Surgical History Hx of colonoscopy History of surgery on arm History of circumcision Family History Mother No problems noted. Father Medical history unknown Maternal Uncle Diabetes Social History Housing: Other Alcohol intake: never Patient Tobacco Use Status: Never used Tobacco e-Cigarette/Vaping Use: Never Used Second Hand Smoke Exposure: No service: No Current occupational status: disabled Cognitive needs: No Hearing needs: No Vision needs: No Review of Systems Const Unobtainable due to mental condition Physical Exam Vital Signs: Last Vital Signs Pulse 109 H 09/10/24 09:17 BP 110/60 09/10/24 09:17 Pulse Ox 97 09/10/24 09:17 Oxygen Delivery Method Room Air 09/10/24 09:17 BMI result Body Mass Index 23.2 Const General: alert and other (non verbal) Eyes Conjunctivae: conjunctival abnormal right conjunctival injection and discharge Neck Neck: Yes normal visual inspection, Yes full ROM and Yes no lymphadenopathy Chest Chest palpation & inspection: normal inspection of the chest Resp Auscultation: diminished lung sounds Cardio Rate: regular rate Rhythm: regular rhythm Heart sounds: S1 normal heart sound present and S2 normal heart sound present GI Palpation (GI): Soft to palpation and nontender Auscultation: normal bowel sounds Skin General skin exam: rashes and/or lesions noted Assessment & Plan Assessment & Plan (1) Allergic rhinitis due to pollen: Code(s): J30.1 - Allergic rhinitis due to pollen Category: Medical Qualifiers: Allergic rhinitis seasonality: non-seasonal Qualified Code(s): J30.1 - Allergic rhinitis due to pollen (2) Asthma: Code(s): J45.909 - Unspecified asthma, uncomplicated Category: Medical Qualifiers: Asthma complication type: uncomplicated Asthma persistence: persistent Asthma severity: severe Qualified Code(s): J45.50 - Severe persistent asthma, uncomplicated (3) Chronic cough: Code(s): R05 - Cough Category: Medical (4) Allergies: Code(s): T78.40XA - Allergy, unspecified, initial encounter Category: Medical Qualifiers: Encounter type: subsequent encounter Qualified Code(s): T78.40XD - Allergy, unspecified, subsequent encounter (5) Conjunctivitis: Code(s): H10.9 - Unspecified conjunctivitis Category: Medical Qualifiers: Conjunctivitis type: unspecified Laterality: right Qualified Code(s): H10.9 - Unspecified conjunctivitis Plan Continue Dupixent injections every 2 weeks, monitor for worsening conjuctivitis continue budesonide and twice a day. Continue Brovana twice a day. Singular therapy Zyrtec in AM Continue Flonase as needed Bloodwork follow-up in 6 months Orders: Orders Complete Blood Count Auto Diff 09/10/24 T78.40XA - Allergy, unspecified, initial encounter Immunoglobulin E 09/10/24 T78.40XA - Allergy, unspecified, initial encounter Erythrocyte Sedimentation Rate 09/10/24 T78.40XA - Allergy, unspecified, initial encounter Coding Level of Care Code Est Pt Level 4 (60121) Diagnoses Non-seasonal allergic rhinitis due to pollen J30.1 Allergic rhinitis seasonality: non-seasonal Severe persistent asthma without complication J45.50 Asthma complication type: uncomplicated Asthma persistence: persistent Asthma severity: severe Chronic cough R05 Allergy, subsequent encounter T78.40XD Encounter type: subsequent encounter Conjunctivitis of right eye, unspecified conjunctivitis type H10.9 Conjunctivitis type: unspecified Laterality: right Time Spent (min) 16
--- OUTSIDE RECORDS SUMMARY | 2024-09-10 09:37 | XMS_ITS | Data Portability ---
Author Organization YOSEPH Onofre s, [address] Address [address] [place] [address] Assessment No assessment recorded. Plan of Treatment Reminders Order Date Submit Date Provider Last Modified By Organization Details Last Modified Time Details Appointments None recorded. Lab None recorded. Referral driver lifter of sanitation truck referral 2022 023 [email or web address] Not available 10:19:41 Procedures None recorded. Surgeries None recorded. Imaging None recorded. Medication Orders ibuprofen [address] [facility], [address] [place] [address], [id number], 10:17:29 Patient TargetsNo targets recorded. Patient Instructions Encounter Date Encounter Id Patient Instructions Last Modified By Organization Details Last Modified Time 08/23/2022 [id number] hammer toe: care instructions [email or web address] Not available 08/23/2022 10:14:28 Please have him brought back in if he develops redness, bruising, or a sore/ulcer on the foot or toe. 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 Adobe Flex Developer Referral for Pain of toe of right foot Referring Physician: Cassidy Birch, Urgent Care, Encounter Date: 08/23/2022 Problems Name Problem SNOMED Code Status Onset Date Resolution Date Notes Provider Name and Address Organization Details Recorded Time Asthma 114460451 Active 2022 YOSEPH De La Rosa [facility] 3 09:03:34 Glaucoma 11244133 Active 2022 NICOLE moser PA Karen [facility] 09:03:50 Hyperlipidemia 85750162 Active 2022 NICOLE DRAKE R null, [place] - [facility] 3 09:04:04 Diabetes mellitus 11800832 Active 2022 NICOLE DRAKE R null, [place] - [facility] 3 09:04:14 Irritable bowel syndrome 14111863 Active 2022 IRIS NOELLE R null, [place] - [facility] 3 09:04:21 Mood disorder 15921051 Active 2022 NICOLE DRAKE R null, PA [...] /min 98 [degF] 156.21 cm 22 kg/m2 12022.6 g 127 mm[Hg] 84 mm[Hg] NICOLE TIFFANIEARIEL [...] SNOMED-CT Code Diagnosis ICD10 Code Diagnosis Note [id number] [address] [facility] [place] [address] 04/15/2022 16:05:14 04/15/2022 16:29:21 [id number] [address] [place] [address] 04/04/2022 19:29:19 04/04/2022 20:01:52 [id number] YOSEPH CANALES [address] [facility] [place] [address] 08/23/2022 08:19:02 08/23/2022 10:19:41 Pain of toe of right foot [id number] 44481 M79.674 Does not appear infected.T here is that deformity - I am questionin g if it was rubbing against the shoe or sock was bunched which caused increased pressure. I advise that cautious with that and consider new shoes if continues to happen after shoes are removed. Patient needs to see driver lifter of sanitation truck for foot care - toenails, evaluation s [...] Gutierrez Member ID Guarantor Name 04/15/2022 1 [facility] (MEDICAID HMO) JENNY Kuhn [id number] Aiden Kuhn 08/23/2022 1 [facility] (MEDICAID HMO) JENNY Kuhn [id number] Aiden Kuhn Notes Date Note Type Note [...] for Ibuprofen and perhaps referral to the driver lifter of sanitation truck. He use to go to the driver lifter of sanitation truck pre-covid. YOSEPH CANALES [address], [place], [address], [place] [facility] 08/24/2022 08:42:42
--- OUTSIDE RECORDS SUMMARY | 2024-09-10 09:37 | XMS_ITS | Data Portability ---
Author Organization [place] - [facility] Address [address] [place] [address] Care Team Providers Care Clinical Programmer Name Role Phone DIDIER FARRAR Primary Care Provider [phone] Assessment Encounter Date Assessment Date Assessment LastModified by Organization Details LastModified Time 12/06/2018 12/06/2018 Overview/History : 43-year-old male, who [facility] with a past medical history that includes but not limited to asthma, diabetes, Hypertension, high cholesterol, developmentally delayed, non verbal, was evaluated for complaints of cough over the past 1-2 days. The patient [facility] a [facility] and the history was obtained from the [...] nasal spray,kerry pension 2018 019 INTERFACE [id number], [address] [place], [address], 9 12:59:31 Patient TargetsNo targets recorded. Patient Instructions Encounter Date Encounter Id Patient Instructions Last Modified By Organization Details Last Modified Time 12/06/2018 [id number] Use the DuoNebs every 4 hours as [...] propionate 50 mcg/actuati on nasal spray,suspe nsion [place] 1 spray twice a day by intranasa [...] /min 126 mm[Hg] 64 mm[Hg] Not Available [facility] 9 12:41:58 Social History Question Answer Notes LastModified by Organizat ion Details LastModified Time Tobacco Smoking Status Never Smoker SALVADOR CRAWFORD, AICHA [address], [place], [address], [place] [facility] 12/06/2018 12:53:28 Within The [...] Artery Disease N Cancer N Stroke N Depression N COPD N Asthma Y High Cholesterol Y Pulmonary Embolism N Hypertension Y Kidney Disease N Past Encounters Encounter ID Performer Location Encounter Start Date Encounter Closed Date Diagnosis/Indication Diagnosis SNOMED-CT Code Diagnosis ICD10 Code Diagnosis Note [id number] SALVADOR CRAWFORD NP [facility] [address] [place] [address] 12/06/2018 12:39:06 12/07/2018 15:50:17 Cough 05616968 R05 Seasonal a llergic rhinitis 631375106 J30.2 Asthma 673553374 J45.90 9 Health Concerns Section Related Observation LastModified by Organization Detai ls LastModified Time None Recorded Concern Status LastModified by Organization Details LastModified Time None Recorded Advance Directives Directive None Recorded Payers Encounter Date Sequence Insurance Name Policy Number Policy Gutierrez Covered Member ID Gutierrez Member ID Guarantor Name 12/06/2018 1 [place] Aiden Kuhn [id number] [place] Notes Date Note Type Note Provider Name and Address Organization Details Recorded Time 12/06/2018 text/html 43-year-old male, who is new to , with a past medical history that includes but not limited to diabetes, asthma, seasonal allergies, autistic/develop mentally delayed, was evaluated at a prison for complaints of a cough over the past 1-2 days. The patient was given a nebulizer this morning per staff this seemed to help with the cough. The patient is nonverbal and the history was obtained from the prison staff. They report no fever, chills, sweats, shortness of breath, chest pain, abdominal pain, bowel or bladder issues, arthralgia, myalgias or any rashes. No sick exposures. SALVADOR CRAWFORD NP [address] [place] [address] [place], [place], [address], [place] [facility] 12/06/2018 13:22:13
== END 2024-09-10 09:34 | disposition home or self-care (01) ==
LOC: HO.HPS 09:16
PROVIDERS: PCP Internal Medicine; Visit Provider Hospitalist
DX: R05.9 Cough, unspecified (principal); J45.50 Severe persistent asthma, uncomplicated; H10.9 Unspecified conjunctivitis
CPT/HCPCS: 99214

== ENCOUNTER → 2024-09-10 09:15 | Outpatient (BNVA) | payer OTHER, SELFPAY | PROVIDERS: PCP Internal Medicine; Visit Provider Hospitalist | DX: J45.50 Severe persistent asthma, uncomplicated (principal); J30.1 Allergic rhinitis due to pollen; R47.9 Unspecified speech disturbances; H10.9 Unspecified conjunctivitis | CPT/HCPCS: 99212 ==

== ENCOUNTER 2024-09-22 07:16 | Outpatient (REF) | payer OTHER, SELFPAY ==
--- OUTSIDE RECORDS SUMMARY | 2024-09-22 07:18 | XMS_ITS | Data Portability ---
Author Organization YOSEPH Onofre s, [address] Address [address] [place] [address] Assessment No assessment recorded. Plan of Treatment Reminders Order Date Submit Date Provider Last Modified By Organization Details Last Modified Time Details Appointments None recorded. Lab None recorded. Referral statistics manager referral 2022 023 [email or web address] Not available 10:19:41 Procedures None recorded. Surgeries None recorded. Imaging None recorded. Medication Orders ibuprofen 200 mg tablet 2022 023 [facility], [address] [place] [address], [id number], 10:17:29 Patient TargetsNo targets recorded. Patient Instructions Encounter Date Encounter Id Patient Instructions Last Modified By Organization Details Last Modified Time 08/23/2022 [id number] hammer toe: care instructions [email or web address] Not available 08/23/2022 10:14:28 Please have him brought back in if he develops redness, bruising, or a sore/ulcer on the foot or toe. [email or web address] 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 Diabetes Education Coordinator Referral for Pain of toe of right foot Referring Physician: Cassidy Birch, Urgent Care, Encounter Date: 08/23/2022 Problems Name Problem SNOMED Code Status Onset Date Resolution Date Notes Provider Name and Address Organization Details Recorded Time Asthma 877399331 Active 2022 YOSEPH De La Rosa [facility] 3 09:03:34 Glaucoma 14343915 Active 2022 NICOLE moser PA Karen [facility] 09:03:50 Hyperlipidemia 06939432 Active 2022 NICOLE DRAKE R null, [place] - [facility] 3 09:04:04 Diabetes mellitus 52734400 Active 2022 NICOLE DRAKE R null, [place] - [facility] 3 09:04:14 Irritable bowel syndrome 71939568 Active 2022 IRIS NOELLE R null, [place] - [facility] 3 09:04:21 Mood disorder 33580112 Active 2022 NICOLE DRAKE R null, PA [...] /min 98 [degF] 156.21 cm 22 kg/m2 64918.6 g 127 mm[Hg] 84 mm[Hg] NICOLE TIFFANIEARIEL [...] SNOMED-CT Code Diagnosis ICD10 Code Diagnosis Note [id number] [address] [place] [address] 04/15/2022 16:05:14 04/15/2022 16:29:21 [id number] [address] [place] [address] 04/04/2022 19:29:19 04/04/2022 20:01:52 [id number] YOSEPH CANALES [address] [place] [address] 08/23/2022 08:19:02 08/23/2022 10:19:41 Pain of toe of right foot 6429859822 60931 M79.674 Does not appear infected.T here is that deformity - I am questionin g if it was rubbing against the shoe or sock was bunched which caused increased pressure. I advise that cautious with that and consider new shoes if continues to happen after shoes are removed. Patient needs to see statistics manager for foot care - toenails, evaluation s [...] Gutierrez Member ID Guarantor Name 04/15/2022 1 [facility] (MEDICAID HMO) JENNY Kuhn [id number] Aiden Kuhn 08/23/2022 1 [facility] (MEDICAID HMO) JENNY Kuhn [id number] Aiden Kuhn Notes Date Note Type Note [...] for Ibuprofen and perhaps referral to the statistics manager. He use to go to the statistics manager pre-covid. YOSEPH CANALES [address], [place], [address], [place] [facility] 08/24/2022 08:42:42
--- OUTSIDE RECORDS SUMMARY | 2024-09-22 07:18 | XMS_ITS | Data Portability ---
Author Organization [place] - [facility] Address [address] [place] [address] Care Team Providers Care It Generalist Name Role Phone DIDIER FARRAR Primary Care Provider Assessment Encounter Date Assessment Date Assessment LastModified by Organization Details LastModified Time 12/06/2018 12/06/2018 Overview/History : 43-year-old male, who [facility] with a past medical history that includes but not limited to asthma, diabetes, Hypertension, high cholesterol, developmentally delayed, non verbal, was evaluated for complaints of cough over the past 1-2 days. The patient lives in a alf and the history was obtained from the [...] nasal spray,kerry pension 2018 019 [id number], [address] [place], [address], 9 12:59:31 Patient TargetsNo targets recorded. Patient Instructions Encounter Date Encounter Id Patient Instructions Last Modified By Organization Details Last Modified Time 12/06/2018 [id number] Use the DuoNebs every 4 hours as [...] propionate 50 mcg/actuati on nasal spray,suspe nsion [place] 1 spray twice a day by intranasa [...] /min 126 mm[Hg] 64 mm[Hg] Not Available [facility] 12:41:58 Social History Question Answer Notes LastModified by Organizat ion Details LastModified Time Tobacco Smoking Status Never Smoker SALVADOR CRAWFORD, AICHA [address], [place], [address], [place] [facility] 12/06/2018 12:53:28 Within The [...] Artery Disease N Cancer N Stroke N Asthma Y COPD N Depression N High Cholesterol Y Pulmonary Embolism N Hypertension Y Kidney Disease N Past Encounters Encounter ID Performer Location Encounter Start Date Encounter Closed Date Diagnosis/Indication Diagnosis SNOMED-CT Code Diagnosis ICD10 Code Diagnosis Note [id number] SALVADOR CRAWFORD NP [facility] [address] [place] [address] 12/06/2018 12:39:06 12/07/2018 15:50:17 Cough 76581541 R05 Seasonal a llergic rhinitis 992784819 J30.2 Asthma 586576326 J45.90 9 Health Concerns Section Related Observation LastModified by Organization Detai ls LastModified Time None Recorded Concern Status LastModified by Organization Details LastModified Time None Recorded Advance Directives Directive None Recorded Payers Encounter Date Sequence Insurance Name Policy Number Policy Gutierrez Covered Member ID Gutierrez Member ID Guarantor Name 12/06/2018 1 [place] Aiden Kuhn [id number] [employer] Notes Date Note Type Note Provider Name and Address Organization Details Recorded Time 12/06/2018 text/html 43-year-old male, who is new to , with a past medical history that includes but not limited to diabetes, asthma, seasonal allergies, autistic/develop mentally delayed, was evaluated at a alf for complaints of a cough over the past 1-2 days. The patient was given a nebulizer this morning per staff this seemed to help with the cough. The patient is nonverbal and the history was obtained from the alf staff. They report no fever, chills, sweats, shortness of breath, chest pain, abdominal pain, bowel or bladder issues, arthralgia, myalgias or any rashes. No sick exposures. SALVADOR CRAWFORD NP [address] [place] [address] [place], [place], [address], [place] [facility] 12/06/2018 13:22:13
[2024-09-22 07:44] LABS: MANUAL DIFF FLAG NO
[2024-09-22 08:00] LABS: Basophils Percent Auto 0.3 % (0-2); Eosinophils Absolute Auto 0.1 X10*3/uL (0.0-0.4); Eosinophils Percent Auto 1.5 % (0-4); Hematocrit 43.6 % (42.0-52.0); Hemoglobin 14.7 g/dl (14.0-18.0); Lymphocytes Absolute Auto 1.6 X10*3/uL (1.2-4.9); Lymphocytes Percent Auto 41.4 % (20-40); Mean Corpuscular HGB Conc 33.7 g/dl (31.0-36.0); Mean Corpuscular Hemoglobin 30.6 pg (27.0-33.0); Mean Corpuscular Volume 90.8 fL (80.0-98.0); Mean Platelet Volume 10.5 fL (9.4-12.4); Monocytes Absolute Auto 0.6 X10*3/uL (0.1-1.2); Monocytes Percent Auto 15.9 % (2-11); Neutrophils Absolute Auto 1.6 x10*3/uL (2.0-8.3); Neutrophils Percent Auto 40.9 % (45-73); Platelet Count 160 X10*3/uL (160-400); Red Cell Distribution Width 13.3 % (11.0-16.0); White Blood Count 3.9 X10*3/uL (4.8-10.8)
[2024-09-22 08:40] LABS: Erythrocyte Sedimentation Rate 5 MM/HR (0-15)
[2024-09-23 22:43] LABS: Immunoglobulin E 21 kU/L (<OR=114)
== END 2024-09-22 07:17 | disposition home or self-care (01) ==
LOC: HO.LAB 07:16
PROVIDERS: Hospitalist; PCP Internal Medicine; Visit Provider Internal Medicine
DX: T78.40XA Allergy, unspecified, initial encounter (principal)
CPT/HCPCS: 36415; 82785; 85025; 85652

== ENCOUNTER → 2024-11-01 12:55 | Outpatient (REF) | payer OTHER, SELFPAY | LOC: HO.CARD 12:55 | PROVIDERS: PCP Internal Medicine | DX: R00.0 Tachycardia, unspecified (principal) | CPT/HCPCS: 93242 ==

== ENCOUNTER → 2024-11-01 12:58 | Outpatient (BNV) | payer OTHER, SELFPAY | PROVIDERS: PCP Internal Medicine; Visit Provider Internal Medicine Cardiovascular Disease | DX: R00.0 Tachycardia, unspecified (principal) | CPT/HCPCS: 93227 ==

== ENCOUNTER 2025-01-05 14:33 | Outpatient (AMB) | payer OTHER, SELFPAY ==
--- OUTSIDE RECORDS SUMMARY | 2025-01-05 14:59 | XMS_ITS | Clinical Summary ---
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 7 Active albuterol 2.5 mg /3 mL (0.083 %) nebulizer solution Take 1 Vial by nebulization every 4 hours as needed for Wheezing, Shortness of Breath or Cough. 7 Active risperiDONE (RisperDAL) 2 mg tablet Take 2 mg by mouth daily. Active diazepam (VALIUM ORAL) Take 15 mg by mouth. Prior to dentist appointments Active ketoconazole (NIZORAL) 2 % cream Apply cream to affected once a day for two weeks 7 Active albuterol HFA (PROAIR HFA ; PROVENTIL HFA ; VENTOLIN HFA) 90 mcg/actuation inhaler Inhale 2 Puffs into the lungs every 6 hours as needed for Cough or Wheezing. 7 Active inhalational spacing device inhaler SPACER/AERO CHAMBER MOUTHPIECE MISC 1 Each by Does not apply route daily. Use w/MDI 7 Active traZODone (DESYREL) 50 mg tablet Take 50 mg by mouth. 1 tab in AM & 3 tabs Nightly Active FreeStyle Test test strip USE TO TEST TWICE DAILY 4 Active disposable gloves misc DISPOSABLE GLOVES (NITRILE GLOVES/SIZE 7) MISC 1 Each by Does not apply route daily. 4 Active blood-glucose meter (BLOOD GLUCOSE MONITORING [facility]) Use daily to check blood sugar 3 Active FREESTYLE LANCETS MISC Test BID 3 Active Active Problems Problem Noted Date Diagnosed Date Diabetes type 2, controlled ([facility] V24, [facility] V28) 02/22/2016 IBS (irritable bowel syndrome) 02/20/2016 High cholesterol 06/10/2014 Asthma 11/01/2013 Behavior problem 01/12/2013 Overview (05/21/2024): Unsure diagnosis, sees dr. Muñoz psychiatry Diabetes mellitus ([facility] V24, [facility] V28) Overview (05/21/2024): Diet controlled Insomnia 01/12/2013 Intellectual disability 01/12/2013 Immunizations Name Administration Dates Next Due Influenza trivalent, with pr eservative (Fluzone; Afluria) 6mo and older 02/01/2016,03/03/2014 PPD Test 06/16/2014 Pneumococcal, Unspecified 06/02/2012 Tdap Tetanus diptheria acell ular pertussis (Boostrix; Adacel) 7yo and older 06/16/2014 Surgical History Surgery Date Site/Laterality Comments EYE SURGERY PROCEDURE: HISTORICAL EYE SURGERY COLONOSCOPY 03/14/16 [facility] PROCEDURE: OUTSIDE COLONOSCOPY; COMMENT: normal; repeat in 10 yrs under propofol Medical History Medical History Date Comments Mental retardation 01/12/2013 DX:Mental ret ardation Behavioral disorder 01/12/2013 DX:Behaviora l disorder; COMMENT: Unsure diagnosis, sees dr. Muñoz psychiatry Insomnia 01/12/2013 DX:Insomnia Diabetes mellitus ([facility] V 24, [facility] V28) 01/12/2013 DX:Diabetes mellitus ([facility]); COMMENT: Diet controlled IBS (irritable bowel syndrome) 02/20/2016 D X:IBS (irritable bowel syndrome) Family History Medical History Relation Name Comments Diabetes Aunt 1 Diabetes Grandparent 1 Diabetes Uncle 1 Relation Name Status Comments Aunt 1 Aunt 2 Grandparent 1 Grandparent 2 Uncle 1 Uncle 2 Social History Tobacco Use Types Packs/Day Years Used Date Smoking Tobacco: Never Smokeless Tobacco: Never Alcohol Use Standard Drinks/Week Comments No 0 (1 standard drink = 0.6 oz pur e alcohol) Sex and Gender Information Value Date Recorded Sex Assigned at Not on file Legal Sex Male 5:35 PM EST Gender Identity Not on file Sexual Orientation Not on file Obstetrics History Plan of Treatment Upcoming Encounters Date Type Department Care Team (Late st Contact Info) Description 01/25/2025 2:45 PM EDT Consult Orthopedic Surgery - [place] [address] [phone] Gerardo Friedman, DPEm 175 [facility] [address] [place] [address] Health Maintenance Due Date Last Done Comments Diabetes: Annual Foot Exam 1985 Diabetes: Annual Retina Eye Exam 1985 Hepatitis B Vaccines (1 of 3 - 19+ 3-dose series) 1994 Pneumococcal Vaccine: Pediatrics (0 to 5 Years) and At-Risk Patients (6 to 49 Years) (1 of 2 - PCV) 1994 06/02/2012 Diabetes: Annual GFR (Glomerular Filtration Rate) 09/13/2016 09/14/2015 COVID-19 Vaccine (2023-2 5 season) 2024 Cholesterol Screening (Lipid Panel) 05/22/2024 06/24/2016 Colorectal Cancer Screening: Colonoscopy 05/22/2024 Diabetes: Annual Urine Albumin-Creatinine Ratio (uACR) 05/22/2024 02/19/2016 Diabetes: Blood Sugar Contro l Test (HGBA1C) 05/22/2024 06/24/2016 HIV Screening 05/22/2024 Hepatitis C Screening 05/22/2024 Social Influencers of Health Screening 05/22/2024 Depression Screening 06/02/2024 DTaP,Tdap,and Td Vaccines (2 - Td or Tdap) 06/16/2024 06/16/2014 Influenza Vaccine (#1) 2025 6, 03/03/2014 HIB Vaccines Aged Out No longer eligi ble based on patient's age to complete this topic HPV Vaccines Aged Out No longer eligi ble based on patient's age to complete this topic Hepatitis A Vaccines Aged Out No long er eligible based on patient's age to complete this topic IPV Vaccines Aged Out No longer eligi ble based on patient's age to complete this topic MMR Vaccines Aged Out No longer eligi ble based on patient's age to complete this topic Meningococcal ACWY Vaccine Aged Out N o longer eligible based on patient's age to complete this topic Meningococcal B Vaccine Aged Out No l onger eligible based on patient's age to complete this topic RSV Immunization Patients Under 20 months Aged Out No longer eligible b ased on patient's age to complete this topic Varicella Vaccines Aged Out No longer eligible based on patient's age to complete this topic Procedures Procedure Name Priority Date/Time Associated Diagnosis Comments HEMOGLOBIN A1C Routine 06/24/2016 LIPID PANEL Routine 06/24/2016 URINE ALBUMIN CREATININE RATIO Routine 02/19/2016 ANNUAL BMP BLOOD TEST Routine 09/14/2015 from Last 3 Months or Most Recently Relevant to Health Maintenance Results * Hemoglobin A1c (06/24/2016) Pathologist [facility] Hemoglobin A1C 5.9 4.0 - 6.0 % Blood Venous blood specimen / Unknown Result [facility] Provider LAB BLOOD ORDERABLES Viktoria l Result * (ABNORMAL) Lipid panel (06/24/2016) Pathologist [facility] LDL/HDL Ratio 4 0 - 4 Triglycerides 499(A) 0 - 150 mg/dL Cholesterol 160 0 - 200 mg/dL HDL 42 >=40 mg/dL LDL Cholesterol 19 0 - 100 mg/dL Blood Venous blood specimen / Unknown Result [facility] Historical Provider LAB BLOOD ORDERABLES Viktoria l Result * Urine Albumin Creatinine Ratio (02/19/2016) Pathologist [facility] Urine Albumin Creatinine Ratio abstracted [facility] Provider HEALTH MAINTENANCE Final Result * Annual BMP Blood Test (09/14/2015) Pathologist [facility] Annual BMP Blood Test abstracted Historical Provider HEALTH MAINTENANCE Final Result from Last 3 Months or Most Recently Relevant to Health Maintenance [place] [address] [place] [address] PLAN Care Teams Power Plant Operator Apprentice Relationship Specialty Start Date End Date Sybil Cruz MD [address] [place] [address] , [address] Physician Associ D[facility]B/A: [facility] JOSE Anguiano PCP - General Internal Medicine 11/17/24
--- NOTE | 2025-01-05 15:12 | MHC.OFFVIS ---
Vital Signs 01/05/25 15:17 Height 5 ft 1 in Weight 122 lb 2.177 oz BMI 23.1 BP 110/52 L Blood Pressure Location Lt brachial Position Sitting Pulse 97 Pulse Source Monitor Intake Visit Reasons: [id number] Allergies shellfish derived (SHELLFISH DERIVED) Allergy (Severe, Verified 09/10/24 09:22) ANAPHYLAXIS metformin Allergy (Intermediate, Verified 09/10/24 09:22) Diarrhea pollen extracts (POLLEN) Allergy (Intermediate, Verified 09/10/24 09:22) PER ALLERGY TESTING scallops (SCALLOPS) Allergy (Intermediate, Verified 09/10/24 09:22) PER ALLERGY TESTING tree and shrub pollen (TREE) Allergy (Intermediate, Verified 09/10/24 09:22) PER ALLERGY TESTING grass pollen Allergy (Mild, Verified 09/10/24 09:22) Unknown Medication List - Last Reconciled 01/05/25 by Margarito Cerda NP acetaminophen (Tylenol Extra Strength) 1,000 mg (2 x 500 mg) PO Q6H PRN 7 days [adult pull-ups As directed] albuterol sulfate 2.5 mg (3 mL) inhalation Q6H PRN 30 days alcohol swabs (Alcohol Pads) 1 pad topical DAILY 90 days amoxicillin-pot clavulanate 875-125 mg 1 tab PO BID arformoterol 2 mL inhalation BID 30 days atorvastatin 40 mg PO DAILY blood sugar diagnostic As directed blood sugar diagnostic (FreeStyle Lite Strips) 1 strip miscellaneous BID blood-glucose meter (FreeStyle Lite Meter kit) As directed budesonide 0.5 mg (2 mL) PO BID cetirizine (Zyrtec) 10 mg PO DAILY 30 days dextromethorphan-guaifenesin 30-600 mg (Mucinex DM) 1 tab PO BID PRN 30 days diaper,brief,adult,disposable SIZE MEDIUM diazepam (Valium) 20 mg PO ONCE PRN diazepam mg PO dicyclomine 20 mg PO .every 8 hours PRN 30 days dorzolamide 2% drps ophthalmic (eye) Dupixent Syringe (dupilumab) 300 mg (2 mL) subcut Q2W NS erythromycin ophthalmic (eye) lancets (Pure Comfort Safety Lancets) 28 gauge miscellaneous DIRECTED 90 days lancets As directed lancets (Pure Comfort Safety Lancets) 30 gauge miscellaneous BID latanoprost 0.005% 1 drp ophthalmic (eye) BEDTIME metoprolol succinate ER 12.5 mg (1/2 x 25 mg) PO DAILY miscellaneous medical supply 1 ea miscellaneous DAILY 30 days montelukast 10 mg PO QPM moxifloxacin 0.5% 1 drp ophthalmic-Right QID nebulizer and compressor As directed pioglitazone 15 mg PO QAM 30 days prednisolone acetate 1% 1 drp ophthalmic (eye) DAILY quetiapine (Seroquel) 50 mg PO BEDTIME risperidone 3 mg PO DAILY trazodone 150 mg PO BEDTIME zinc oxide 13% (Desitin Daily Defense) 1 appl topical BID PRN 30 days HPI Comments Details: This is a 49-year-old male patient coming in for a follow-up visit, accompanied by yield improvement engineer. Patient with a history of developmental delay, nonverbal, sinus tachycardia, hyperlipidemia, diabetes, and prior history of cardiomyopathy. Patient is in no acute distress and is sitting on the exam table comfortably. The yield improvement engineer% patient has been doing well with no signs of distress. Given patient's finding of short runs of SVT on all previous Holter, patient was started on a low-dose metoprolol therapy. Finish Repair Worker states that patient's blood pressures and heart rates has been stable now. We repeated a Holter to check on SVT burden. Finish Repair Worker states patient has been compliant with his medications. [facility] Medical History Allergies Acute exacerbation of chronic bronchitis Tubular adenoma Physical exam Hearing loss Sinus tachycardia Developmental delay, severe Asthma Mixed stress and urge urinary incontinence Chronic cough Essential hypertension Insomnia Allergic rhinitis due to pollen Pure hypercholesterolemia Diabetes mellitus Moderate asthma Surgical History Hx of colonoscopy History of surgery on arm History of circumcision Family History Mother No problems noted. Father Medical history unknown Maternal Uncle Diabetes Social History Housing: Other Alcohol intake: never Patient Tobacco Use Status: Never used Tobacco e-Cigarette/Vaping Use: Never Used Second Hand Smoke Exposure: No service: No Current occupational status: disabled Cognitive needs: No Hearing needs: No Vision needs: No Physical Exam Vital Signs: Last Vital Signs Pulse 97 01/05/25 15:17 BP 110/52 L 01/05/25 15:17 BMI result Body Mass Index 23.1 Const General: cooperative, healthy appearing, comfortable and no acute distress HEENT Head: Yes normal to inspection Neck Neck: Yes normal visual inspection, Yes trachea midline and Yes supple Chest Chest palpation & inspection: normal inspection of the chest Resp Effort & Inspection: normal respiratory effort Auscultation: clear to auscultation bilaterally, no crackles, no rales, no rhonchi and no wheezes Cardio Jugular venous distension: no JVD Palpation: normal PMI Rate: regular rate Rhythm: regular rhythm Heart sounds: S1 normal heart sound present, S2 normal heart sound present, no click, no gallops, no murmurs and no rubs Peripheral pulses: Peripheral pulses 2+ throughout GI Inspection: Yes normal to inspection Palpation (GI): Soft to palpation Auscultation: normal bowel sounds Skin General skin exam: no rashes or lesions noted Extrem General: Yes normal to inspection, No no pedal edema and No calf tenderness Psych Appearance: grossly normal Speech and movement: Other speech and movement exam findings present (Psych) (Nonverbal) Office Procedures EKG Details: EKG today showed normal sinus rhythm, rate 96 beats per minute, left posterior fascicular block, nonspecific ST-T abnormality, [place], [place]. [id number], Complete Assessment & Plan Assessment & Plan (1) Cardiomyopathy: Code(s): I42.9 - Cardiomyopathy, unspecified Category: Medical Qualifiers: Cardiomyopathy type: unspecified Qualified Code(s): I42.9 - Cardiomyopathy, unspecified Plan: 08/02/2024-echo study showed patient's EF improved to 55-60% with grade 1 diastolic dysfunction. There is a mention about a possible apical variant of hypertrophic cardiomyopathy, however due to movement during the test, apex could not be viewed well per Dr. Roper. Prior echo showed an EF of 40-45%. Clinically euvolemic. Patient has a another repeat echo prior to his yearly follow up with Dr. Roper. (2) Sinus tachycardia: Code(s): R00.0 - Tachycardia, unspecified Category: Medical Plan: 08/02/2024-Holter monitor showed underlying sinus rhythm with an average heart rate of 83 beats per minute. Rare PACs with multiple short runs of SVT longest lasting 13 beats at 141 beats per minute. Patient was started on a low-dose metoprolol for SVTs. Repeat Holter study on 11/01/2024 showed baseline normal sinus rhythm with no notion of SVTs. Continue metoprolol therapy. Blood pressures from the facility was reviewed and there has been stable with a systolic between 110s to 120s, and heart rates between 70s to 90s. Advised monitoring blood pressure at the facility and to hold metoprolol in case of systolic blood pressure lower than 90 or heart rate lower than 60. (3) Intellectual disability: Code(s): F79 - Unspecified intellectual disabilities Category: Medical Plan: Patient with a history of severe developmental delay who is also nonverbal and therefore it is difficult to gather any specific symptoms or concerns. However, yield improvement engineer states that patient has been comfortable and in no acute distress at the facility. Advised heart healthy diet, regular exercise, med compliance, and management of vascular risk factors. Follow up with primary hazardous materials waste technician. The interim, yield improvement engineer we will call the office with any concerns or change in symptoms. This note was generated using voice recognition software. While every effort has been made to ensure accuracy and proper explosive operator grenade, there may be occasional errors that could affect the content or meaning of the described symptoms. Orders: Orders AMB EKG-In Office Today I10 - Essential (primary) hypertension Coding Level of Care Code Est Pt Level 4 (71963) Complex EM visit Add On G2211 Diagnoses Cardiomyopathy, unspecified type I42.9 Cardiomyopathy type: unspecified Sinus tachycardia R00.0 Intellectual disability F79 CPT Codes EKG - CPT: [id number], Complete ([id number]) Time Spent (min) 31 Comment Time spent in reviewing the chart, test results, assessment, counseling and documentation.
[2025-01-05 15:17] VITALS: BP 110/52; PULSE 97; BMI 23.1
== END 2025-01-05 15:40 | disposition home or self-care (01) ==
LOC: HO.HCS 14:34
PROVIDERS: PCP Internal Medicine
DX: I42.9 Cardiomyopathy, unspecified (principal); R00.0 Tachycardia, unspecified; F79 Unspecified intellectual disabilities
CPT/HCPCS: 93010; 99214

== ENCOUNTER → 2025-01-05 14:33 | Outpatient (BNVA) | payer OTHER, SELFPAY | PROVIDERS: PCP Internal Medicine | DX: I42.9 Cardiomyopathy, unspecified (principal); R00.0 Tachycardia, unspecified; I10 Essential (primary) hypertension; I44.5 Left posterior fascicular block; F79 Unspecified intellectual disabilities | CPT/HCPCS: 93005; 99212 ==

== ENCOUNTER 2025-02-11 14:20 | Outpatient (AMB) | payer OTHER, SELFPAY ==
--- NOTE | 2025-02-11 14:21 | A.OFFVIS_ITS ---
Vital Signs 02/11/25 14:22 Height 5 ft 1 in Weight 125 lb BMI 23.6 BP 122/62 Blood Pressure Location Lt brachial Position Sitting Pulse 91 Pulse Source Pulse Oximeter Pulse Oximetry (%) 97 Oxygen Delivery Method Room Air Intake Visit Reasons: cough Allergies shellfish derived (SHELLFISH DERIVED) Allergy (Severe, Verified 02/11/25 14:26) ANAPHYLAXIS metformin Allergy (Intermediate, Verified 02/11/25 14:26) Diarrhea pollen extracts (POLLEN) Allergy (Intermediate, Verified 02/11/25 14:26) PER ALLERGY TESTING scallops (SCALLOPS) Allergy (Intermediate, Verified 02/11/25 14:26) PER ALLERGY TESTING tree and shrub pollen (TREE) Allergy (Intermediate, Verified 02/11/25 14:26) PER ALLERGY TESTING grass pollen Allergy (Mild, Verified 02/11/25 14:26) Unknown HPI Comments Details: the patient is a 49-year-old gentleman with severe developmental delay, nonverbal and also history of allergic asthma. the patient is here today for follow-up visit. Overall he has been doing well on the Dupixent injections. several weeks ago the patient did start developing worsening cough and chest congestion. He was taken to an urgent care where he was diagnosed with bronchitis. He was given antibiotics and a prednisone taper. He has now completed the course and is back to his baseline. He has not required any rescue inhalers or nebulized therapy. The patient does continue his Dupixent injections with good effects. [facility] only [facility] with allergic type of respiratory symptoms. This is likely to be more infectious process that activated his asthma. Will continue with current therapy at this time. evaluated also will request chest x-ray at that time. 09/10/2024 the the patient is here for pulmonary follow-up visit. The patient overall is doing well. He continues on Dupixent. Dupixent therapy has been very affecting beneficial. Athough, developing some conjuctivitis. Mild to moderate. Currently on steroid eye drops. We will monitor it closely. If it worsens, he may have to change the dupixent. He did required a course of prednisone last month due to a viral illness. Now back to his baseline. His cough is intermittent and improved. The patient continues with Brovana and budesonide twice a day. Patient also continues with his nasal therapy. 02/11/2025 the patient is here for pulmonary follow-up visit. He continues to do well. He has been under Dupixent shots for awhile. Seems to be effective in very beneficial to him. He had 1 bout where he had inflammation of the left eye. He went to the eye doctor and they found a cut in the post infected. Therefore, explained to the staff that did Dupixent if his starts developing any kind of conjunctivitis to make sure that we are aware assist could be a side effect. For now his asthma has been very well controlled. He continues on the high dose budesonide. Will go ahead and start deescalating his medicines by decreasing his budesonide to 0.25 mg dose. He will continue with the Brovana twice a day. Will follow-up in 6 months has any issues prior to this and we can always call specially if we need to increase the budesonide back to the original dose. [facility] Medical History Allergies Acute exacerbation of chronic bronchitis Tubular adenoma Physical exam Hearing loss Sinus tachycardia Developmental delay, severe Asthma Mixed stress and urge urinary incontinence Chronic cough Essential hypertension Insomnia Allergic rhinitis due to pollen Pure hypercholesterolemia Diabetes mellitus Moderate asthma Surgical History Hx of colonoscopy History of surgery on arm History of circumcision Family History Mother No problems noted. Father Medical history unknown Maternal Uncle Diabetes Social History Housing: Other Alcohol intake: never Patient Tobacco Use Status: Never used Tobacco e-Cigarette/Vaping Use: Never Used Second Hand Smoke Exposure: No service: No Current occupational status: disabled Cognitive needs: No Hearing needs: No Vision needs: No Review of Systems Const Unobtainable due to mental condition Physical Exam Vital Signs: Last Vital Signs Pulse 91 02/11/25 14:22 BP 122/62 02/11/25 14:22 Pulse Ox 97 02/11/25 14:22 Oxygen Delivery Method Room Air 02/11/25 14:22 BMI result Body Mass Index 23.6 Const General: alert and other (non verbal) Eyes Conjunctivae: conjunctival abnormal right conjunctival injection and discharge Neck Neck: Yes normal visual inspection, Yes full ROM and Yes no lymphadenopathy Chest Chest palpation & inspection: normal inspection of the chest Resp Auscultation: diminished lung sounds Cardio Rate: regular rate Rhythm: regular rhythm Heart sounds: S1 normal heart sound present and S2 normal heart sound present GI Palpation (GI): Soft to palpation and nontender Auscultation: normal bowel sounds Skin General skin exam: rashes and/or lesions noted Assessment & Plan Assessment & Plan (1) Allergic rhinitis due to pollen: Code(s): J30.1 - Allergic rhinitis due to pollen Category: Medical Qualifiers: Allergic rhinitis seasonality: non-seasonal Qualified Code(s): J30.1 - Allergic rhinitis due to pollen (2) Asthma: Code(s): J45.909 - Unspecified asthma, uncomplicated Category: Medical Qualifiers: Asthma complication type: uncomplicated Asthma persistence: persistent Asthma severity: severe Qualified Code(s): J45.50 - Severe persistent asthma, uncomplicated (3) Chronic cough: Code(s): R05 - Cough Category: Medical (4) Allergies: Code(s): T78.40XA - Allergy, unspecified, initial encounter Category: Medical Qualifiers: Encounter type: subsequent encounter Qualified Code(s): T78.40XD - Allergy, unspecified, subsequent encounter (5) Conjunctivitis: Code(s): H10.9 - Unspecified conjunctivitis Category: Medical Qualifiers: Conjunctivitis type: unspecified Laterality: right Qualified Code(s): H10.9 - Unspecified conjunctivitis Plan Continue Dupixent injections every 2 weeks, monitor for worsening conjuctivitis decrease budesonide 0.5->0.25mg twice a day. Continue Brovana twice a day. Singular therapy Zyrtec in AM Continue Flonase as needed follow-up in 6 months Medications: New budesonide 0.25 mg (2 mL) inhalation BID 120 mL 11RF 30 days Coding Level of Care Code Est Pt Level 4 (09138) Complex EM visit Add On G2211 Diagnoses Non-seasonal allergic rhinitis due to pollen J30.1 Allergic rhinitis seasonality: non-seasonal Severe persistent asthma without complication J45.50 Asthma complication type: uncomplicated Asthma persistence: persistent Asthma severity: severe Chronic cough R05 Allergy, subsequent encounter T78.40XD Encounter type: subsequent encounter Conjunctivitis of right eye, unspecified conjunctivitis type H10.9 Conjunctivitis type: unspecified Laterality: right Time Spent (min) 15
[2025-02-11 14:22] VITALS: BP 122/62; PULSE 91; O2SAT 97; BMI 23.6
--- OUTSIDE RECORDS SUMMARY | 2025-02-11 17:15 | XMS_ITS | Clinical Summary ---
Author Organization [address] [place] [address] Address [address] [place] [address] Phone Care Team Providers Care Helix Coil Winder Name Role Phone Sybil Cruz MD Primary Care Provider [phone] Allergies No known active allergies Medications pravastatin [...] 4 Active blood-glucose meter ([facility]SE [facility]) Use daily to check blood sugar 3 Active FREESTYLE LANCETS MISC Test BID 3 Active Active Problems Problem Noted Date Diagnosed Date Diabetes type 2, controlled ([facility] V24, [facility] V28) 02/22/2016 IBS (irritable bowel syndrome) 02/20/2016 High cholesterol 06/10/2014 Asthma 11/01/2013 Behavior problem 01/12/2013 Overview (05/21/2024): Unsure diagnosis, sees dr. Muñoz psychiatry Diabetes mellitus ([facility] V24, [facility] V28) Overview (05/21/2024): Diet controlled Insomnia 01/12/2013 Intellectual disability 01/12/2013 Encounters Date Type Department Care Team Description 01/25/2025 2:45 PM EDT Consult Orthopedic Surgery - [address] [phone] Gerardo Friedman, PATRICK Pain in toes of both feet (Primary Dx); Type 2 diabetes mellitus with unspecified complications ([facility] V24, [facility] V28); Arthritis of both feet; Hammertoes of both feet; Dermatophytosis, nail from Last 3 Months Immunizations Name Administration Dates Next Due Influenza trivalent, with pr eservative (Fluzone; Afluria) 6mo and older 02/01/2016,03/03/2014 PPD Test 06/16/2014 Pneumococcal, Unspecified 06/02/2012 Tdap Tetanus diptheria acell ular pertussis (Boostrix; Adacel) 7yo and older 06/16/2014 Surgical History Surgery Date Site/Laterality Comments EYE SURGERY PROCEDURE: HISTORICAL EYE SURGERY COLONOSCOPY 03/14/16 [facility] PROCEDURE: OUTSIDE COLONOSCOPY; COMMENT: normal; repeat in 10 yrs under propofol Medical History Medical History Date Comments Mental retardation 01/12/2013 DX:Mental ret ardation Behavioral disorder 01/12/2013 DX:Behaviora l disorder; COMMENT: Unsure diagnosis, sees dr. Muñoz psychiatry Insomnia 01/12/2013 DX:Insomnia Diabetes mellitus ([facility] V 24, [facility] V28) 01/12/2013 DX:Diabetes mellitus ([facility]); COMMENT: Diet controlled IBS [...] Upcoming Encounters Date Type Department Care Team ([facility] st Contact Info) Description 04/27/2025 9:00 AM EST Office Visit Orthopedic Surgery - [place] [address] [phone] Gerardo Friedman, PATRICK [address] [address] Health Maintenance Due Date Last Done Comments Diabetes: Annual Foot Exam 1985 Diabetes: Annual Retina Eye Exam 1985 Hepatitis B Vaccines (1 of 3 - 19+ 3-dose series) 1994 Diabetes: Annual GFR (Glomerular Filtration Rate) 09/13/2016 09/14/2015 Pneumococcal Vaccine: Pediatrics (0 to 5 Years) and At-Risk Patients (6 to 49 Years) (2 of 2 - PCV) 10/05/2022 10/05/2021, 06/02/2012, 04/26/1997 Cholesterol Screening (Lipid Panel) 05/22/2024 06/24/2016 Colorectal Cancer Screening: Colonoscopy 05/22/2024 Diabetes: Annual Urine Albumin-Creatinine Ratio (uACR) 05/22/2024 02/19/2016 Diabetes: Blood Sugar Control Test (HGBA1C) 05/22/2024 06/24/2016 HIV Screening 05/22/2024 Hepatitis C Screening 05/22/2024 Social Influencers of Health Screening 05/22/2024 Depression Screening 06/02/2024 Influenza Vaccine (#1) 2025 , 02/28/2023, 03/22/2022, Additional history exists DTaP,Tdap,and Td Vaccines (4 - Td or Tdap) 02/24/2028 02/23/2018, 06/16/2014, 02/21/2004 COVID-19 Vaccine Completed 03/10/2024, 07/2022, 03/22/2022, Additional history exists HIB Vaccines Aged Out No longer eligi [...] 20 months Aged Out No longer eligible based on [...] Health Maintenance Results * Hemoglobin A1c (06/24/2016) Hemoglobin A1C 5.9 4.0 - 6.0 % Blood Venous blood specimen / Unknown us Historical Provider LAB BLOOD ORDERABLES Viktoria l Result * (ABNORMAL) Lipid panel (06/24/2016) LDL/HDL Ratio 4 0 - 4 Triglycerides 499(A) 0 - 150 mg/dL Cholesterol 160 0 - 200 mg/dL HDL 42 >=40 mg/dL LDL Cholesterol 19 0 - 100 mg/dL Blood Venous blood specimen / Unknown Historical Provider LAB BLOOD ORDERABLES Viktoria l Result * Urine Albumin Creatinine Ratio (02/19/2016) Pathologist [facility] Urine Albumin Creatinine Ratio abstracted Historical Provider HEALTH MAINTENANCE Final Result * Annual BMP Blood Test (09/14/2015) Pathologist [facility] Annual BMP Blood Test abstracted Historical Provider HEALTH MAINTENANCE Final Result from Last 3 Months or Most Recently Relevant to Health Maintenance Insurance [facility] [employer] Care Teams Helix Coil Winder Relationship Specialty Start Date End Date Sybil Cruz MD [address] [place] [address] , [address] [facility] Physician Associ D/B/A: [facility] JOSE Anguiano PCP - General Internal Medicine 11/17/24
== END 2025-02-11 14:38 | disposition home or self-care (01) ==
LOC: HO.HPS 14:20
PROVIDERS: PCP Internal Medicine; Visit Provider Hospitalist
DX: J30.1 Allergic rhinitis due to pollen (principal); J45.50 Severe persistent asthma, uncomplicated; R05.9 Cough, unspecified; H10.9 Unspecified conjunctivitis
CPT/HCPCS: 99214

== ENCOUNTER → 2025-02-11 14:20 | Outpatient (BNVA) | payer OTHER, SELFPAY | PROVIDERS: PCP Internal Medicine; Visit Provider Hospitalist | DX: J45.40 Moderate persistent asthma, uncomplicated (principal); J30.1 Allergic rhinitis due to pollen; Z91.09 Other allergy status, other than to drugs and biological substances; H10.9 Unspecified conjunctivitis | CPT/HCPCS: 99212 ==

== ENCOUNTER 2025-02-17 14:13 | Outpatient (AMB) | payer OTHER, SELFPAY ==
[2025-02-17 14:41] VITALS: BP 102/62; PULSE 80; RESP 16; O2SAT 98; BMI 23.4
--- NOTE | 2025-02-17 14:41 | AM.OFFWIN_ITS ---
Intake Vital Signs 02/17/25 14:41 Height 5 ft 1 in Weight 124 lb BMI 23.4 BP 102/62 Blood Pressure Location Lt brachial Position Sitting Respiration 16 Pulse 80 Pulse Source Pulse Oximeter Pulse Oximetry (%) 98 Oxygen Delivery Method Room Air Intake Visit Reasons: EP fever, strong smelling urine Patient Tobacco Use Status: Never used Tobacco Allergies shellfish derived (SHELLFISH DERIVED) Allergy (Severe, Verified 02/11/25 14:26) ANAPHYLAXIS metformin Allergy (Intermediate, Verified 02/11/25 14:26) Diarrhea pollen extracts (POLLEN) Allergy (Intermediate, Verified 02/11/25 14:26) PER ALLERGY TESTING scallops (SCALLOPS) Allergy (Intermediate, Verified 02/11/25 14:26) PER ALLERGY TESTING tree and shrub pollen (TREE) Allergy (Intermediate, Verified 02/11/25 14:26) PER ALLERGY TESTING grass pollen Allergy (Mild, Verified 02/11/25 14:26) Unknown HPI HPI Comments History of Present Illness Details History - The patient is a 49-year-old non-verba l male 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 - The patient had a recorded temperature of 101?F, noted by the day program staff. - There was a strong odor noted during u rination, and the patient wears a diaper. - He does not complain of pain. - They did not report blood in the urine . Physical Exam General: Cooperative, healthy appearing, comfortable, no acute distress and well developed Cardiac: Normal S1 and S2. RRR, no M/R/G noted. Respiratory: Normal respiratory effort and able to speak in complete sentences. Clear to auscultation bilaterally. No w/r/r noted. Skin: No rashes or lesions noted. GI: Normal inspection. Normal BS noted. Soft, non-tender, non-distended. No TTP of all 4 quadrants. No guarding or rebound tenderness noted. Back: Negative CVA bilaterally Patient was informed and verbally consented to the use of an ambient scribe for clinic note documentation during this visit. [facility] Medical History Allergies Acute exacerbation of chronic bronchitis Tubular adenoma Physical exam Hearing loss Sinus tachycardia Developmental delay, severe Asthma Mixed stress and urge urinary incontinence Chronic cough Essential hypertension Insomnia Allergic rhinitis due to pollen Pure hypercholesterolemia Diabetes mellitus Moderate asthma Surgical History Hx of colonoscopy History of surgery on arm History of circumcision Family History Mother No problems noted. Father Medical history unknown Maternal Uncle Diabetes Social History Housing: Other Alcohol intake: never Patient Tobacco Use Status: Never used Tobacco e-Cigarette/Vaping Use: Never Used Second Hand Smoke Exposure: No service: No Current occupational status: disabled Cognitive needs: No Hearing needs: No Vision needs: No Review of Systems Const All systems reviewed & are unremarkable except as noted in HPI and below Physical Exam Vital Signs: Last Vital Signs Pulse 80 02/17/25 14:41 Resp 16 02/17/25 14:41 BP 102/62 02/17/25 14:41 Pulse Ox 98 02/17/25 14:41 Oxygen Delivery Method Room Air 02/17/25 14:41 BMI result Body Mass Index 23.4 Results AMB Urinalysis, Automated UA Leukoctes 125 Lawrence/uL Last Edit by Samantha Mendes MA on 02/17/25 15:15 2+ Samantha Mendes 02/17/25 15:15 UA Nitrite Negative Last Edit by Samantha Mendes MA on 02/17/25 15:15 UA Urobilinogen 0.2 mg/dL Last Edit by Samantha Mendes MA on 02/17/25 15:15 UA Protein 0 mg/dL Last Edit by Samantha Mendes MA on 02/17/25 15:15 UA pH 6.0 Last Edit by Samantha Mendes MA on 02/17/25 15:15 UA Blood 25 Zac/uL Last Edit by Samantha Mendes MA on 02/17/25 15:15 1+ Samantha Mendes 02/17/25 15:15 UA Specific Atkins 1.010 Last Edit by Samantha Mendes MA on 02/17/25 15:1 5 UA Ketone Negative Last Edit by Samantha Mendse MA on 02/17/25 15:15 UA Bilirubin 0 mg/dL Last Edit by Samantha Mendes MA on 02/17/25 15:15 UA Glucose 0 mg/dL Last Edit by Samantha Mendes MA on 02/17/25 15:15 Assessment & Plan Assessment & Plan (1) Bad odor of urine: Code(s): R82.90 - Unspecified abnormal findings in urine Plan Most likely UTI UA in the office 2+leuko, 1+blood plan - Plan to monitor temperature and administer antipyretics as needed. - Plan to obtain a urine sample for analysis and initiate empirical antibiotic therapy. - will order a urine culture - drink lots of fluids - follow up with PCP Orders: Orders AMB Urinalysis Automated Today R30.0 - Dysuria Urine Culture Today N39.0 - Urinary tract infection, site not specified Medications: New cefuroxime axetil 500 mg PO Q12H 10 tabs 0RF 5 days Coding Level of Care Code Est Pt Level 3 (53018) Diagnoses Bad odor of urine R82.90
--- OUTSIDE RECORDS SUMMARY | 2025-02-17 16:07 | XMS_ITS | Clinical Summary ---
Author Organization [address] [place] [address] Address [address] [place] [address] Phone Care Team Providers Care Property Insurance Agent Name Role Phone Sybil Cruz MD Primary Care Provider [phone] Allergies No known active allergies Medications pravastatin [...] Active blood-glucose meter ([facility]) Use daily to check blood sugar 3 Active FREESTYLE LANCETS MISC Test BID 3 Active Active Problems Problem Noted Date Diagnosed Date Diabetes type 2, controlled ([facility] V24, [facility]/ C V28) 02/22/2016 IBS (irritable bowel syndrome) 02/20/2016 High cholesterol 06/10/2014 Asthma 11/01/2013 Behavior problem 01/12/2013 Overview (05/21/2024): Unsure diagnosis, sees dr. Muñoz psychiatry Diabetes mellitus ([facility] V24, [facility] V28) Overview (05/21/2024): Diet controlled Insomnia 01/12/2013 Intellectual disability 01/12/2013 Encounters Date Type Department Care Team Description 01/25/2025 2:45 PM EDT Consult Orthopedic Surgery - [address] [phone] Gerardo Friedman, PATRICK Pain in toes of both feet (Primary Dx); Type 2 diabetes mellitus with unspecified complications ([facility] V24, [facility] V28); Arthritis of both feet; Hammertoes of [...] SURGERY PROCEDURE: HISTORICAL EYE SURGERY COLONOSCOPY 03/14/16 [facility] PROCEDURE: OUTSIDE COLONOSCOPY; COMMENT: normal; repeat in 10 yrs under propofol Medical History Medical History Date Comments Mental retardation 01/12/2013 DX:Mental ret ardation Behavioral disorder 01/12/2013 DX:Behaviora l disorder; COMMENT: Unsure diagnosis, sees dr. Muñoz psychiatry Insomnia 01/12/2013 DX:Insomnia Diabetes mellitus ([facility] V 24, [facility] V28) 01/12/2013 DX:Diabetes mellitus ([facility]); COMMENT: Diet controlled IBS (irritable bowel syndrome) [...] Upcoming Encounters Date Type Department Care Team ([facility] st Contact Info) Description 04/27/2025 9:00 AM EST Office Visit Orthopedic Surgery - [place] [address] [phone] Gerardo Friedman, PATRICK [address] [address] Health Maintenance Due Date Last Done Comments [...] Td or Tdap) 02/24/2028 02/23/2018, 06/16/2014, 02/21/2004 RSV Immunization Adult Patients (1 - 1-dose 75+ series) 2050 COVID-19 Vaccine Completed 03/10/2024, 07/2022, 03/22/2022, Additional [...] Result * Urine Albumin Creatinine Ratio (02/19/2016) Urine Albumin Creatinine Ratio abstracted Historical Provider HEALTH MAINTENANCE Final Result * Annual BMP Blood Test (09/14/2015) Annual BMP Blood Test abstracted Historical Provider HEALTH MAINTENANCE Final Result from Last 3 Months or Most Recently Relevant to Health Maintenance Insurance HEALTH PLAN Care Teams Property Insurance Agent Relationship Specialty Start Date End Date Sybil Cruz MD [address] [facility] , [address] [facility] Physician Associ D/B/A: [facility] JOSE Anguiano PCP - General Internal Medicine 11/17/24
== END 2025-02-17 15:30 | disposition home or self-care (01) ==
PROVIDERS: PCP Internal Medicine; Visit Provider Physician Assistant Medical
DX: R30.0 Dysuria (principal); R82.90 Unspecified abnormal findings in urine

== ENCOUNTER 2025-02-17 14:13 | Outpatient (REF) | payer OTHER, SELFPAY ==
--- OUTSIDE RECORDS SUMMARY | 2025-02-18 12:10 | XMS_ITS | Clinical Summary ---
Author Organization [address] [place] [address] Address [address] [place] [address] Phone Care Team Providers Care Coal Handler Name Role Phone Sybil Cruz MD Primary Care Provider [phone] Allergies No known active allergies Medications pravastatin [...] blood-glucose meter ([facility]) Use daily to check blood sugar 3 Active FREESTYLE LANCETS MISC Test BID 3 Active Active Problems Problem Noted Date Diagnosed Date Diabetes type 2, controlled ([facility] V24, [facility] V28) 02/22/2016 IBS (irritable bowel syndrome) 02/20/2016 High cholesterol 06/10/2014 Asthma 11/01/2013 Behavior problem 01/12/2013 Overview (05/21/2024): Unsure diagnosis, sees dr. Muñoz psychiatry Diabetes mellitus ([facility] V24, [facility] V28) Overview (05/21/2024): Diet controlled Insomnia 01/12/2013 Intellectual disability 01/12/2013 Encounters Date Type Department Care Team Description 01/25/2025 2:45 PM EDT Consult Orthopedic Surgery - [address] [phone] Gerardo Friedman, PATRICK Pain in toes of both feet (Primary Dx); Type 2 diabetes mellitus with unspecified complications ([facility] V24, [facility] V28); Arthritis of both feet; Hammertoes of [...] SURGERY PROCEDURE: HISTORICAL EYE SURGERY COLONOSCOPY 03/14/16 [facility] PROCEDURE: OUTSIDE COLONOSCOPY; COMMENT: normal; repeat in 10 yrs under propofol Medical History Medical History Date Comments Mental retardation 01/12/2013 DX:Mental ret ardation Behavioral disorder 01/12/2013 DX:Behaviora l disorder; COMMENT: Unsure diagnosis, sees dr. Muñoz psychiatry Insomnia 01/12/2013 DX:Insomnia Diabetes mellitus ([facility] V 24, [facility] V28) 01/12/2013 DX:Diabetes mellitus ([facility]); COMMENT: Diet controlled IBS (irritable bowel syndrome) [...] Upcoming Encounters Date Type Department Care Team ([facility] st Contact Info) Description 04/27/2025 9:00 AM EST Office Visit Orthopedic Surgery - [place] [address] [address] [phone] Gerardo Friedman, PATRICK [address] [address] Health Maintenance Due Date Last Done Comments [...] Health Maintenance Insurance HEALTH PLAN Care Teams Coal Handler Relationship Specialty Start Date End Date Sybil Cruz MD [address] [facility] , [address] [facility] Physician Associ D/B/A: [facility] JOSE Anguiano PCP - General Internal Medicine 11/17/24
== END 2025-02-17 14:14 | disposition home or self-care (01) ==
LOC: HO.LNP 14:13
PROVIDERS: PCP Internal Medicine; Visit Provider Physician Assistant Medical
DX: R82.90 Unspecified abnormal findings in urine (principal); R30.0 Dysuria
CPT/HCPCS: 81003; 87086; 87088; 87186; 99212

== ENCOUNTER 2025-03-02 17:09 | Outpatient (AMB) | payer OTHER, SELFPAY ==
[2025-03-02 17:11] VITALS: BP 118/76; PULSE 95; O2SAT 98; BMI 23.2
--- NOTE | 2025-03-02 17:11 | A.OFFPC_ITS ---
Vital Signs 03/02/25 17:11 Height 5 ft 1 in Weight 123 lb BMI 23.2 BP 118/76 Blood Pressure Location Lt brachial Position Sitting Pulse 95 Pulse Source Pulse Oximeter Pulse Oximetry (%) 98 Oxygen Delivery Method Room Air Intake Visit Reasons: dm Glassine Machine Tender Required: No Accompanied by: Self / Same As Patient Allergies shellfish derived (SHELLFISH DERIVED) Allergy (Severe, Verified 03/02/25 17:40) ANAPHYLAXIS metformin Allergy (Intermediate, Verified 03/02/25 17:40) Diarrhea pollen extracts (POLLEN) Allergy (Intermediate, Verified 03/02/25 17:40) PER ALLERGY TESTING scallops (SCALLOPS) Allergy (Intermediate, Verified 03/02/25 17:40) PER ALLERGY TESTING tree and shrub pollen (TREE) Allergy (Intermediate, Verified 03/02/25 17:40) PER ALLERGY TESTING grass pollen Allergy (Mild, Verified 03/02/25 17:40) Unknown Medication List - Last Reconciled 03/02/25 by Sybil Cruz MD acetaminophen (Tylenol Extra Strength) 1,000 mg (2 x 500 mg) PO Q6H PRN 7 days [adult pull-ups As directed] albuterol sulfate 2.5 mg (3 mL) inhalation Q6H PRN 30 days alcohol swabs (Alcohol Pads) 1 pad topical DAILY 90 days arformoterol 2 mL inhalation BID 30 days atorvastatin 40 mg PO DAILY blood sugar diagnostic As directed blood sugar diagnostic (FreeStyle Lite Strips) 1 strip miscellaneous BID blood-glucose meter (FreeStyle Lite Meter kit) As directed budesonide 0.5 mg (2 mL) PO BID budesonide 0.25 mg (2 mL) inhalation BID 30 days cetirizine (Zyrtec) 10 mg PO DAILY 30 days dextromethorphan-guaifenesin 30-600 mg (Mucinex DM) 1 tab PO BID PRN 30 days diaper,brief,adult,disposable SIZE MEDIUM diazepam (Valium) 20 mg PO ONCE PRN diazepam mg PO dicyclomine 20 mg PO .every 8 hours PRN 30 days dorzolamide 2% drps ophthalmic (eye) Dupixent Syringe (dupilumab) 300 mg (2 mL) subcut Q2W NS erythromycin ophthalmic (eye) lancets (Pure Comfort Safety Lancets) 28 gauge miscellaneous DIRECTED 90 days lancets As directed lancets (Pure Comfort Safety Lancets) 30 gauge miscellaneous BID latanoprost 0.005% 1 drp ophthalmic (eye) BEDTIME metoprolol succinate ER 12.5 mg (1/2 x 25 mg) PO DAILY miscellaneous medical supply 1 ea miscellaneous DAILY 30 days montelukast 10 mg PO QPM moxifloxacin 0.5% 1 drp ophthalmic-Right QID nebulizer and compressor As directed pioglitazone 15 mg PO QAM 30 days prednisolone acetate 1% 1 drp ophthalmic (eye) DAILY quetiapine (Seroquel) 50 mg PO BEDTIME risperidone 3 mg PO DAILY trazodone 150 mg PO BEDTIME zinc oxide 13% (Desitin Daily Defense) 1 appl topical BID PRN 30 days Tobacco use date assessed: 08/31/24 Dental Screening Dental Screen Date: 08/31/24 HPI HPI Comments History of Present Illness Details The patient is a 49-year-old male presenting with congestion and management of chronic conditions such as asthma and diabetes mellitus. The congestion started approximately a week ago and has been associated with increased phlegm production. The patient has been using albuterol for relief, bu t symptoms persist, leading to the prescription of an antibiotic for five days. 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 He uses a nebulizer and albuterol as part of his management plan. The patient also has diabetes mellitus, which is currently well-controlled with an A1c of 5.5%. He is on pioglitazone 15 mg for diabetes management. Incontinence issues have been noted, though details on management were not discussed. The patient has multiple allergies, including shellfish, metformin, pollen, scallops, and tree grass. His medication list includes Tylenol, inhaler, atorvastatin, budesonide, cetirizine, diazepam, dicyclomine, metoprolol, montelukast, seroquel, risperidone, trazodone, and zinc oxide. [facility] Medical History (Updated 03/02/25 @ 18:11 by Sybil Cruz MD) Diabetes mellitus Allergies Acute exacerbation of chronic bronchitis Tubular adenoma Physical exam Hearing loss Sinus tachycardia Developmental delay, severe Asthma Mixed stress and urge urinary incontinence Chronic cough Essential hypertension Insomnia Allergic rhinitis due to pollen Pure hypercholesterolemia Moderate asthma Surgical History Hx of colonoscopy History of surgery on arm History of circumcision Family History Mother No problems noted. Father Medical history unknown Maternal Uncle Diabetes Social History Housing: Other Alcohol intake: never Patient Tobacco Use Status: Never used Tobacco Tobacco use type: Cigarette e-Cigarette/Vaping Use: Never Used Second Hand Smoke Exposure: No service: No Current occupational status: disabled Cognitive needs: No Hearing needs: No Vision needs: No Questionnaire Thrive Questionnaire Date Thrive assessed: 06/17/24 I am a: Parent/Caregiver What is your living situation today?: I have a steady place to live Within the past 12 months, did the food you bought not last and you didn't have the money to get more?: I choose not to answer this question Within the past 12 months, did you worry whether your food would run out before you got money to buy more?: I choose not to answer this question Do you have trouble paying for medicines?: No Do you have trouble getting transportation to medical appointments?: No Do you have trouble paying your heating and electricity bill?: No Do you have trouble taking care of your child, family member or friend?: No Do you have trouble with day-to-day activities such as bathing, preparing meals, shopping, managing finances, etc.?: No Are you currently unemployed and looking for a job?: No Are you interested in more education?: No Please select the resources that you would like help with: None Currently or been in a relationship where the following occur: No concerns reported THRIVE Score: 0 DONOVAN-7 AMB Questionnaire DONOVAN-7 Date DONOVAN - 7 assessed: 06/17/24 Source: Developed by Drs. Carlos Collado, Nataliia Cano, Nilesh Rich and colleagues, with an educational rain from [employer]. Review of Systems Const All systems reviewed & are unremarkable except as noted in HPI and below Card Denies chest pain at rest, Denies chest pain with activity, Denies edema, Denies irregular heart rhythm, Denies claudication, Denies dyspnea, Denies dyspnea on e xertion, Denies orthopnea, Denies paroxysmal nocturnal dyspnea and Denies slow heart rate Resp Denies cough, Denies dyspnea and Denies dyspnea on exertion Physical exam (Primary Care) Vital Signs: Last Vital Signs Pulse 95 03/02/25 17:11 BP 118/76 03/02/25 17:11 Pulse Ox 98 03/02/25 17:11 Oxygen Delivery Method Room Air 03/02/25 17:11 BMI result Body Mass Index 23.2 Tobacco/Smoking Status: Tobacco use Status Tobacco use date assessed 08/31/24 03/02/25 17:12 Patient Tobacco Use Status Never used Tobacco 03/02/25 17:12 Tobacco use type Cigarette 03/02/25 17:12 e-Cigarette/Vaping Use Never Used 03/02/25 17:12 Thrive Assessment: Date of Thrive Assessment Date Thrive assessed 06/17/24 03/02/25 17:12 Currently or been in a relationship where the following occur: No concerns reported Resp Effort & Inspection: normal respiratory effort Auscultation: clear to auscultation bilaterally Cardio Jugular venous distension: no JVD Rate: regular rate Rhythm: regular rhythm Heart sounds: S1 normal heart sound present and S2 normal heart sound present Extrem General: Yes full ROM Results AMB Hemoglobin A1c AMB Hemoglobin A1c 5.5 % Last Edit by Yanelis Gonzales CMA on 03/02/25 17 :27 Results Reviewed Results Reviewed: Laboratory Last Values Hgb A1c (Clinic) 5.5 % (4.0-6.0) 03/02/25 17:12 Coding Level of Care Code Est Pt Level 4 (67009) Diagnoses Hyperlipidemia LDL goal <70 E78.5 Moderate persistent asthma without complication J45.40 Asthma persistence: persistent Asthma complication type: uncomplicated Type 2 diabetes mellitus without complication, without long-term current use of insulin E11.9 Diabetes mellitus type: type 2 Diabetes mellitus terminal press operator insulin use: without assisted use Diabetes mellitus complication status: without complication Bronchitis J40 Essential hypertension I10 Time Spent (min) 22 Assessment & Plan Assessment & Plan (1) Hyperlipidemia LDL goal <70: Code(s): E78.5 - Hyperlipidemia, unspecified Category: Medical (2) Moderate asthma: Code(s): J45.909 - Unspecified asthma, uncomplicated Category: Medical Qualifiers: Asthma persistence: persistent Asthma complication type: uncomplicated Qualified Code(s): J45.40 - Moderate persistent asthma, uncomplicated (3) Diabetes mellitus: Code(s): E11.9 - Type 2 diabetes mellitus without complications Category: Medical Qualifiers: Diabetes mellitus type: type 2 Diabetes mellitus terminal press operator insulin use: without terminal press operator use Diabetes mellitus complication status: without complication Qualified Code(s): E11.9 - Type 2 diabetes mellitus without complications (4) Bronchitis: Code(s): J40 - Bronchitis, not specified as acute or chronic Category: Medical (5) Essential hypertension: Code(s): I10 - Essential (primary) hypertension Category: Medical Plan Plan Patient was informed and verbally consented to the use of an ambient scribe for clinic note documentation during this visit. 1. Congestion The patient was prescribed an antibiotic for five days to address the congestion and associated phlegm production. Follow-up with pulmonology is advised for ongoing asthma management. 2. Asthma The patient continues to use a nebulizer and albuterol for asthma management. Coordination with pulmonology for further management is recommended. 3. Diabetes Mellitus The patient's diabetes is well-controlled with an A1c of 5.5%, and he is on pioglitazone 15 mg. Routine monitoring and follow-up are advised to maintain control. Orders: Orders Microalbumin, Random (w Creat) 4 Months R80.9 - Proteinuria, unspecified AMB Hemoglobin A1c Today Z13.9 - Encounter for screening, unspecified Lipid Panel 4 Months E78.5 - Hyperlipidemia, unspecified Comprehensive [place]. Panel Fast 4 Months E78.5 - Hyperlipidemia, unspecified Medications: New doxycycline hyclate 100 mg PO BID 10 tabs 0RF 5 days
--- OUTSIDE RECORDS SUMMARY | 2025-03-02 17:12 | XMS_ITS | Clinical Summary ---
Author Organization [address] [place] [address] Address [address] [place] [address] Phone Care Team Providers Care Worship Leader Name Role Phone Sybil Cruz MD Primary Care Provider [phone] Allergies No known active allergies Medications pravastatin [...] 4 Active blood-glucose meter (BLOOD GLUCOSE MONITORING [facility]) Use daily to check blood sugar 3 Active FREESTYLE LANCETS MISC Test BID 3 Active Active Problems Problem Noted Date Diagnosed Date Diabetes type 2, controlled ([facility] V24, [facility] V28) 02/22/2016 IBS (irritable bowel syndrome) 02/20/2016 High cholesterol 06/10/2014 Asthma 11/01/2013 Behavior problem 01/12/2013 Overview (05/21/2024): Unsure diagnosis, sees dr. Muñoz psychiatry Diabetes mellitus ([facility] V24, [facility] V28) Overview (05/21/2024): Diet controlled Insomnia 01/12/2013 Intellectual disability 01/12/2013 Encounters Date Type Department Care Team Description 01/25/2025 2:45 PM EDT Consult Orthopedic Surgery - [address] [address] Gerardo Friedman, PATRICK Pain in toes of both feet (Primary Dx); Type 2 diabetes mellitus with unspecified complications ([facility] V24, [facility] V28); Arthritis of both feet; Hammertoes of both feet; Dermatophytosis, nail from Last 3 Months Immunizations Immunization Administration Dates Next Due Influenza trivalent, with pr eservative (Fluzone; Afluria) 6mo and older 02/01/2016,03/03/2014 PPD Test 06/16/2014 Pneumococcal, Unspecified 06/02/2012 Tdap Tetanus diptheria acell ular pertussis (Boostrix; Adacel) 7yo and older 06/16/2014 Surgical History Surgery Date Site/Laterality Comments EYE SURGERY PROCEDURE: HISTORICAL EYE SURGERY COLONOSCOPY 03/14/16 [facility] PROCEDURE: OUTSIDE COLONOSCOPY; COMMENT: normal; repeat in 10 yrs under propofol Medical History Medical History Date Comments Mental retardation 01/12/2013 DX:Mental ret ardation Behavioral disorder 01/12/2013 DX:Behaviora l disorder; COMMENT: Unsure diagnosis, sees dr. Muñoz psychiatry Insomnia 01/12/2013 DX:Insomnia Diabetes mellitus ([facility] V 24, [facility] V28) 01/12/2013 DX:Diabetes mellitus ([facility]); COMMENT: Diet controlled IBS (irritable bowel syndrome) [...] Upcoming Encounters Date Type Department Care Team ([facility] st Contact Info) Description 04/27/2025 9:00 AM EST Office Visit Orthopedic Surgery - [place] [id number] [phone] Gerardo Friedman, PATRICK [address] [address] Health Maintenance Due Date Last Done Comments Colorectal Cancer Screening: Colonoscopy 1975 Diabetes: Annual Foot Exam 1985 Diabetes: Annual Retina Eye Exam 1985 Hepatitis B Vaccines (1 of 3 - 19+ 3-dose series) 1994 Diabetes: Annual GFR (Glomerular Filtration Rate) 09/13/2016 09/14/2015 Pneumococcal Vaccine: Pediatrics (0 to 5 Years) and At-Risk Patients (6 to 49 Years) (2 of 2 - PCV) 10/05/2022 10/05/2021, 06/02/2012, 04/26/1997 Cholesterol Screening (Lipid Panel) 05/22/2024 06/24/2016 Diabetes: Annual Urine Albumin-Creatinine Ratio (uACR) 05/22/2024 [...] Health Maintenance Insurance [employer] Care Teams Worship Leader Relationship Specialty Start Date End Date Sybil Cruz MD [address] [place] [address] , [address] [facility] D/B/A: [facility] JOSE Anguiano PCP - General Internal Medicine 11/17/24
== END 2025-03-02 17:51 | disposition home or self-care (01) ==
LOC: HO.HMCH 17:10
PROVIDERS: PCP Internal Medicine; Visit Provider Internal Medicine
DX: E78.5 Hyperlipidemia, unspecified (principal); J45.40 Moderate persistent asthma, uncomplicated; E11.9 Type 2 diabetes mellitus without complications; J40 Bronchitis, not specified as acute or chronic; I10 Essential (primary) hypertension; Z13.9 Encounter for screening, unspecified

== ENCOUNTER → 2025-03-02 17:09 | Outpatient (BNVA) | payer OTHER, SELFPAY | PROVIDERS: PCP Internal Medicine; Visit Provider Internal Medicine | DX: E11.9 Type 2 diabetes mellitus without complications (principal); E78.5 Hyperlipidemia, unspecified; J45.40 Moderate persistent asthma, uncomplicated; J40 Bronchitis, not specified as acute or chronic; I10 Essential (primary) hypertension | CPT/HCPCS: 83036; 99212 ==

== ENCOUNTER 2025-03-18 08:40 | Outpatient (REF) | payer OTHER, SELFPAY ==
--- OUTSIDE RECORDS SUMMARY | 2025-03-18 09:55 | XMS_ITS | Data Portability ---
Author Organization [place] - [facility] Address [address] [place] [id number] Care Team Providers Care Quality Rn Name Role Phone DIDIER FARRAR Primary Care Provider Assessment Encounter Date Assessment Date Assessment LastModified by Organization Details LastModified Time 12/06/2018 12/06/2018 Overview/History : 43-year-old male, who is new to [facility] with a past medical history that includes but not limited to asthma, diabetes, Hypertension, high cholesterol, developmentally delayed, non verbal, was evaluated for complaints of cough over the past 1-2 days. The patient lives in a nursing home and the history was obtained from [...] Allergy Relief 50 mcg/actua tion nasal spray,kerry brownon 2018 019 INTERFACE [id number], [address], [place], [address], 9 12:59:31 Patient TargetsNo targets recorded. Patient Instructions Encounter Date Encounter Id Patient Instructions Last Modified By Organization Details Last Modified Time 12/06/2018 [id number] Use the DuoNebs every 4 hours as needed for shortness of breath/wheezing. Take Flonase 1 spray each nostril twice a day to help with the cough. Continue taking Zyrtec as prescribed. If the patient develops increased shortness of breath, fever, chest pain or develops any new or concerning symptoms he will need to be reevaluated. [email or web address] Not available 12/06/2018 12:59:02 Reason for Referral [...] propionate 50 mcg/actuati on nasal spray,suspe nsion [place] 1 spray twice a day by intranasa [...] blood by Pulse oximetry Heart rate Systolic And Diastolic Provider Name and Address Organization Details Last Updated DateTime 9 97.9 [degF] 26 /min 99 % 99 % 90 /min 126/64 mm[Hg] Not Available [facility] 9 12:41:58 Social History Question Answer Notes LastModified by Organizat ion Details LastModified Time Tobacco Smoking Status Never Smoker SALVADOR CRAWFORD, AICHA [address], [place], [address], [place] - [facility] 12/06/2018 12:53:28 Within The [...] Time Father No current problems or disability [email or web address] Not available 11/2018 12:53:16 Mother No current [...] Diagnosis SNOMED-CT Code Diagnosis ICD10 Code Diagnosis IMO Codes Diagnosis Note [id number] SALVAODR CRAWFORD NP [facility] [address] [place] [address] 12/06/2018 12:39:06 12/07/2018 15:50:17 Cough 11731138 R05 Seasonal a llergic rhinitis 026916885 J30.2 Asthma 112456639 J45.90 9 Health Concerns Section Related Observation LastModified by Organization Detai ls LastModified Time None Recorded Concern Status LastModified by Organization Details LastModified Time None Recorded Advance Directives Directive None Recorded Payers Insurance Date Sequence Insurance Name Policy Number Policy Gutierrez Covered Member ID Gutierrez Member ID Guarantor Name 02/03/2019 1 [place] [facility] Aiden Kuhn [id number] [employer] 12/06/2018 2 [facility] [employer] (HMO) [id number] Aiden Kuhn [id number] [employer]jia 12/08/2018 1 [facility] [employer] (HMO) [id number] Aiden Kuhn [id number] Youj[employer] 12/06/2018 1 *SELF PAY* Aiden Kuhn [id number] Youjia 12/15/2018 2 [facility] (MEDICAID HMO) [id number] Aiden Kuhn [id number] [employer] 05/11/2019 1 [place] [facility] Aiden Kuhn [id number] [employer] 03/01/2020 1 [facility] NET PLAN (MEDICAID HMO) JENNY Kuhn [id number] [employer] 03/01/2020 1 [facility] [employer] - TOGETHER (MEDICAID HMO) Aiden Kuhn [id number] [employer] 03/01/2020 1 [facility] NET PLAN (MEDICAID HMO) [id number] Aiden Kuhn [id number] [employer] 03/01/2020 1 [place] [facility] Aiden Kuhn [id number] [employer] 03/01/2020 1 [facility] [employer] - TOGETHER (MEDICAID HMO) Aiden Kuhn [id number] [employer] 03/01/2020 1 [place] [facility] Aiden Waldroparza [id number] [employer] 03/01/2020 1 [place] [facility] Aiden Kuhn [id number] [employer] 03/13/2020 1 [facility] PLAN (MEDICAID HMO) JENNY Waldroparza [id number] [employer] 03/01/2020 1 [facility] [facility] (O) Aiden Kuhn [id number] [employer] 02/03/2019 2 [facility] (O) [id number] Aiden Waldroparza [id number] [employer] 05/11/2019 1 [facility] PLAN (MEDICAID HMO) Aiden Kuhn [id number] [employer] Notes Date Note Type Note Provider Name and Address Organization Details Recorded Time 12/06/2018 text/html 43-year-old male, who is new to , with a past medical history that includes but not limited to diabetes, asthma, seasonal allergies, autistic/develop mentally delayed, was evaluated at a nursing home for complaints of a cough over the past 1-2 days. The patient was given a nebulizer this morning per staff this seemed to help with the cough. The patient is nonverbal and the history was obtained from the nursing home staff. They report no fever, chills, sweats, shortness of breath, chest pain, abdominal pain, bowel or bladder issues, arthralgia, myalgias or any rashes. No sick exposures. SALVADOR CRAWFORD NP [address] [place] [address] Gisela, [place], [address], [place] [facility] 12/06/2018 13:22:13
--- OUTSIDE RECORDS SUMMARY | 2025-03-18 09:55 | XMS_ITS | Data Portability ---
Author Organization YOSEPH Onofre [facility], [address] Address [address] [place] [address] Assessment No assessment recorded. Plan of Treatment Reminders Order Date Submit Date Provider Last Modified By Organization Details Last Modified Time Details Appointments None recorded. Lab None recorded. Referral [facility] referral 2022 023 [email or web address] Not available 10:19:41 Procedures None recorded. Surgeries None recorded. Imaging None recorded. Medication Orders ibuprofen 200 mg tablet 2022 023 [facility], [address] [place] [address], [id number], 10:17:29 Patient TargetsNo targets recorded. Patient Instructions Encounter Date Encounter Id Patient Instructions Last Modified By Organization Details Last Modified Time 08/23/2022 [id number] hammer toe: care instructions [email or web address] Not available 08/23/2022 10:14:28 Please have him brought back in if he develops redness, bruising, or a sore/ulcer on the foot or toe. 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 Referring Physician: Cassidy Birch, Urgent Care, Encounter Date: 08/23/2022 Problems Name Problem SNOMED Code Status Onset Date Resolution Date Notes Provider Name and Address Organization Details Recorded Time Asthma 004883092 Active 2022 YOSEPH De La Rosa [facility] 09:03:34 Glaucoma 90540878 Active 2022 NICOLE moser PA Karen [facility] 03/24/202 3 09:03:50 Hyperlipidemia 52377621 Active 2022 NICOLE DRAKE R null, [place] - [facility] 3 09:04:04 Diabetes mellitus 86905816 Active 2022 NICOLE DRAKE R null, [place] - [facility] 3 09:04:14 Irritable bowel syndrome 53334956 Active 2022 NICOLE DRAKE R null, [place] - [facility] 3 09:04:21 Mood disorder 11194725 Active 2022 NICOLE DRAKE R null, PA [...] Body mass index (BMI) Body weight Systolic And Diastolic Provider Name and Address Organization Details Last Updated DateTime 3 98 /min 98 % 98 % 20 /min 98 [degF] 156.21 cm 22 kg/m2 06128.6 g 127/84 mm[Hg] NICOLE Singh PA - [facility] 08:58:16 Social History Question Answer Notes LastModified by [employer] Details LastModified Time Tobacco Smoking Status Never Smoker NICOLE NORMA shanti [place] - [facility] 08/23/2022 08:56:13 What Is Your Water Source? City Information not available 08/23/2022 What Is Your Heat Source? Gas Information not available 08/23/2022 Have You Had Direct Contact, Or Contact During Intimacy, With Monkeypox Rash, Scabs, Or Body Fluids From A Person With Monkeypox? No Information not available 08/23/2022 Have You Recently Traveled Abroad? No Information not available 08/23/2022 Sex: Unknown Functional Status Question Answer Note LastModified by [employer] Details LastModified Time Do you use any illicit or recreational drugs? No Information not available 08/23/2022 Do you or have you ever used any other forms of tobacco or nicotine? No Information not available 08/23/2022 What is your level of alcohol consumption? None Information not available 08/23/2022 Mental Status None recorded. Family History Relationship [...] ICD10 Code Diagnosis IMO Codes Diagnosis Note [id number] [address] [place] [address] 04/15/2022 16:05:14 04/15/2022 16:29:21 [id number] [place] [address] 04/04/2022 19:29:19 04/04/2022 20:01:52 [id number] YOSEPH CANALES [address] [place] [address] 08/23/2022 08:19:02 08/23/2022 10:19:41 Pain of toe of right foot 9026558223 13940 M79.674 Does not appear infected.T here is that deformity - I am questionin g if it was rubbing against the shoe or sock was bunched which caused increased pressure. I advise that cautious with that and consider new shoes if continues to happen after shoes are removed. Patient needs to see [facility] for foot care - toenails, evaluation s [...] Member ID Gutierrez Member ID Guarantor Name 08/23/2022 1 [facility] NET PLAN (MEDICAID HMO) DELFINONACMarie Kuhn [id number] Aiden Kuhn Notes Date Note Type Note Provider Name and Address Organization Details Recorded Time 08/24/19 23 text/htm l ToesReported by PatientHPIFor associated symptoms, patient reportsswellingandrednessbut reportsno ecchymosis. For source of patient information, patient reportsinformation obtained from patient. For location, patient reportsright. For severity, patient reportsmild. For duration, patient reports2 days. For timing, patient reportsacute.The patient has a hammer toe per aide. When they took his shoes and socks off yesterday, it appeared his toe was red and swollen. The patient is non-verbal. The aide said it looks better today and there is no redness or that much swelling. They are hoping to get an order for Ibuprofen and perhaps referral to the [facility]. He use to go to the [facility] pre-covid. YOSEPH CANALES [address] [place] [address] [place], [address], [place] - [facility] 08/24/2022 08:42:42
[2025-03-18 15:55] LABS: Chlamydia pneumoniae PCR Not Detected (Not Detect.); Coronavirus 229E PCR Not Detected (Not Detect.); Coronavirus HKU1 PCR Not Detected (Not Detect.); Coronavirus NL63 PCR Not Detected (Not Detect.); Coronavirus OC43 PCR Not Detected (Not Detect.); RSV PCR Not Detected (Not Detect.); Rhino/Enterovirus PCR Detected (Not Detect.)
[2025-03-18 15:57] LABS: Influenza A H1 PCR Not Detected (Not Detect.); Influenza A H1-2009 PCR Not Detected (Not Detect.); Influenza A H3 PCR Not Detected (Not Detect.); SARS-CoV-2 PCR Not Detected (Not Detect.)
== END 2025-03-18 08:41 | disposition home or self-care (01) ==
LOC: HO.LAB 08:40
PROVIDERS: Physician Assistant; PCP Internal Medicine
DX: J22 Unspecified acute lower respiratory infection (principal); N39.0 Urinary tract infection, site not specified; R82.90 Unspecified abnormal findings in urine; J45.909 Unspecified asthma, uncomplicated; Z79.899 Other long term (current) drug therapy
CPT/HCPCS: 81003; 87086; 87088; 87186; 87633; 99212

== ENCOUNTER 2025-03-18 08:40 | Outpatient (AMB) | payer OTHER, SELFPAY ==
[2025-03-18 08:44] VITALS: BP 94/62; PULSE 97; RESP 16; TEMP 36.3; O2SAT 98; BMI 23.4
--- NOTE | 2025-03-18 08:44 | MHC.OFFWIV ---
Intake Vital Signs 03/18/25 08:44 Height 5 ft 1 in Weight 124 lb BMI 23.4 BP 94/62 Blood Pressure Location Lt brachial Position Sitting Respiration 16 Pulse 97 Pulse Source Pulse Oximeter Temp 97.3 F Temp Source Oral Pulse Oximetry (%) 98 Intake Visit Reasons: ep wheezing asthmatic cough Intake Note: Patient presents for wheezing/SOB & cough x4 days Patient Tobacco Use Status: Never used Tobacco Allergies shellfish derived (SHELLFISH DERIVED) Allergy (Severe, Verified 03/18/25 08:45) ANAPHYLAXIS metformin Allergy (Intermediate, Verified 03/18/25 08:45) Diarrhea pollen extracts (POLLEN) Allergy (Intermediate, Verified 03/18/25 08:45) PER ALLERGY TESTING scallops (SCALLOPS) Allergy (Intermediate, Verified 03/18/25 08:45) PER ALLERGY TESTING tree and shrub pollen (TREE) Allergy (Intermediate, Verified 03/18/25 08:45) PER ALLERGY TESTING grass pollen Allergy (Mild, Verified 03/18/25 08:45) Unknown Do you need a note to return to daycare/school/sports/work: Yes HPI HPI Comments History of Present Illness Details History - The patient is a 49-year-old nonverbal male with a past medhx of asthma and DM2 here with his worker presenting with a cough and congestion. - The cough began two to three days ago and has not responded to his current asthma medications, including albuterol and budesonide. - He is not displaying any signs of ear pain or sinus pain. - He denies production of sputum with the cough and reports no shortness of breath or difficulty in breathing. - The patient resides in a halfway, increasing the risk of viral infections due to close living quarters. - COVID-19 test conducted and returned negative. - He has been eating and drinking normally - He had a urinary tract infection in a previous visit, and there are concerns about ongoing malodorous urine. - He is not displaying any urinary symptoms, such as back pain, burning with urination. - Worker says he has not had fevers or blood in his urine. Review of Systems - Respiratory: Reports cough for two to three days. Denies dyspnea or sputum production. - Cardiovascular: Denies chest pain or palpitations. - Gastrointestinal: Denies nausea, vomiting, or abdominal pain. - Genitourinary: Reports malodorous urine, history of urinary tract infection. All systems reviewed and are unremarkable except as noted in HPI Physical Exam General: Cooperative, healthy appearing, comfortable and no acute distress Orientation/consciousness: Patient oriented x3 Limitations: No limitations Head: Normal to inspection Ears: Hearing grossly normal bilaterally, external ears normal and TM's normal bilaterally Nose: Normal external nose present, Normal nares present and No nasal discharge present Face and sinus: Normal facial exam and Yes sinuses nontender Mouth: Normal oral and palatal mucosa present and moist mucous membranes Throat: Yes tonsils normal, Yes uvula midline. Posterior oropharynx erythema, no exudates Eyes: Appearance normal, both eyes and all related structures Neck: Normal visual inspection, full ROM Respiratory: Clear to auscultation bilaterally. Normal respiratory effort, able to speak in complete sentences, actively coughing, no respiratory distress, not tachypneic, no tripod positioning and no use of accessory muscles. Cardiovascular: Regular rate and rhythm. Normal S1 and S2. rechecked and found normal. Skin: No rashes or lesions noted Neuro: Patient oriented x3 Extremities: Normal to inspection and Yes no clubbing, cyanosis or edema Back: negative CVA bilaterally [facility] Medical History (Updated 03/18/25 @ 09:31 by Sabrina Zuñiga PA-C) Diabetes mellitus Allergies Acute exacerbation of chronic bronchitis Tubular adenoma Physical exam Hearing loss Sinus tachycardia Developmental delay, severe Asthma Mixed stress and urge urinary incontinence Chronic cough Essential hypertension Insomnia Allergic rhinitis due to pollen Pure hypercholesterolemia Moderate asthma Surgical History Hx of colonoscopy History of surgery on arm History of circumcision Family History Mother No problems noted. Father Medical history unknown Maternal Uncle Diabetes Social History Housing: Other Alcohol intake: never Patient Tobacco Use Status: Never used Tobacco Tobacco use type: Cigarette e-Cigarette/Vaping Use: Never Used Second Hand Smoke Exposure: No service: No Current occupational status: disabled Cognitive needs: No Hearing needs: No Vision needs: No Physical Exam Vital Signs: Last Vital Signs Temp 97.3 F 03/18/25 08:44 Pulse 97 03/18/25 08:44 Resp 16 03/18/25 08:44 BP 94/62 03/18/25 08:58 Pulse Ox 98 03/18/25 08:44 BMI result Body Mass Index 23.4 Results AMB Urinalysis, Automated UA Leukoctes 500 [place]/uL Last Edit by Ana Faust MA on 03/18/25 09:31 3+ Ana Faust 03/18/25 09:31 UA Nitrite Negative Last Edit by Ana Faust MA on 03/18/25 09:31 UA Urobilinogen 0.2 mg/dL Last Edit by Ana Faust MA on 03/18/25 09:31 UA Protein 0 mg/dL Last Edit by Ana Faust MA on 03/18/25 09:31 UA pH 6.0 Last Edit by Aan Faust MA on 03/18/25 09:31 UA Blood 10 Zac/uL Last Edit by Ana Faust MA on 03/18/25 09:31 UA Specific [place] 1.010 Last Edit by Ana Faust MA on 03/18/25 09:31 UA Ketone Negative Last Edit by Ana Faust MA on 03/18/25 09:31 UA Bilirubin 0 mg/dL Last Edit by Ana Faust MA on 03/18/25 09:31 UA Glucose 0 mg/dL Last Edit by Ana Faust MA on 03/18/25 09:31 Assessment & Plan Assessment & Plan (1) Lower respiratory infection (e.g., bronchitis, pneumonia, pneumonitis, pulmonitis): Code(s): J22 - Unspecified acute lower respiratory infection Plan: Patient was informed and verbally consented to the use of an ambient scribe for clinic note documentation during this visit. - VSS, pt well appearing and PE unremarkable. - Continue current asthma management with albuterol and budesonide. - Sent a cough suppressant at bedtime to improve sleep quality. - Conducted a respiratory panel to identify potential viral pathogens - Filled out halfway paperwork and wrote note to stay out of group activities for 5 days and okay to return after if asymptomatic. (2) Malodorous urine: Code(s): R82.90 - Unspecified abnormal findings in urine Plan: Urinary Tract Infection - Re-evaluate for persistent urinary tract infection due to reported malodorous urine. - UA 3+ leuks, negative nitrites and + blood, CVA neg bilaterally - Urine culture sent, will treat based on results, unlikely an infection Orders: Orders Resp Pathogen Panel - [facility] Today J06.9 - Acute upper respiratory infection, unspecified Urine Culture Today N39.0 - Urinary tract infection, site not specified AMB Urinalysis Automated Today Z13.9 - Encounter for screening, unspecified Medications: New benzonatate 200 mg PO BEDTIME PRN 10 caps 0RF cough Coding Level of Care Code Est Pt Level 5 (70993) Diagnoses Lower respiratory infection (e.g., bronchitis, pneumonia, pneumonitis, pulmonitis) J22 Malodorous urine R82.90
--- OUTSIDE RECORDS SUMMARY | 2025-03-18 09:04 | XMS_ITS | Clinical Summary ---
Author Organization [address] [place] [address] Address [address] [place] [address] Phone Care Team Providers Care Mess Cook Name Role Phone Sybil Cruz MD Primary Care Provider [phone] Allergies No known active allergies Medications pravastatin [...] 4 Active blood-glucose meter ([facility]OD GLUCOSE [facility]ING [facility] Use daily to check blood sugar 3 Active FREESTYLE LANCETS MISC Test BID 3 Active Active Problems Problem Noted Date Diagnosed Date Diabetes type 2, controlled ([facility] V24, [facility] V28) 02/22/2016 IBS (irritable bowel syndrome) 02/20/2016 High cholesterol 06/10/2014 Asthma 11/01/2013 Behavior problem 01/12/2013 Overview (05/21/2024): Unsure diagnosis, sees dr. Muñoz psychiatry Diabetes mellitus ([facility] V24, [facility] V28) Overview (05/21/2024): Diet controlled Insomnia 01/12/2013 Intellectual disability 01/12/2013 Encounters Date Type Department Care Team Description 01/25/2025 2:45 PM EDT Consult Orthopedic Surgery - [address] [phone] Gerardo Friedman, PATRICK Pain in toes of both feet (Primary Dx); Type 2 diabetes mellitus with unspecified complications ([facility] V24, [facility] V28); Arthritis of both feet; Hammertoes of [...] SURGERY PROCEDURE: HISTORICAL EYE SURGERY COLONOSCOPY 03/14/16 [facility] PROCEDURE: OUTSIDE COLONOSCOPY; COMMENT: normal; repeat in 10 yrs under propofol Medical History Medical History Date Comments Mental retardation 01/12/2013 DX:Mental ret ardation Behavioral disorder 01/12/2013 DX:Behaviora l disorder; COMMENT: Unsure diagnosis, sees dr. Muñoz psychiatry Insomnia 01/12/2013 DX:Insomnia Diabetes mellitus ([facility] V 24, [facility] V28) 01/12/2013 DX:Diabetes mellitus ([facility]); COMMENT: Diet controlled IBS (irritable bowel syndrome) [...] Upcoming Encounters Date Type Department Care Team ([facility] st Contact Info) Description 04/27/2025 9:00 AM EST Office Visit Orthopedic Surgery - [place] [phone] [phone] Gerardo Friedman, PATRICK [address] [address] Health Maintenance Due Date Last Done Comments [...] Health Maintenance Insurance [employer] Care Teams Mess Cook Relationship Specialty Start Date End Date Sybil Cruz MD [address] [place] [address] , [address] [facility] D/B/A: [facility] JOSE Anguiano PCP - General Internal Medicine 11/17/24
== END 2025-03-18 09:48 | disposition home or self-care (01) ==
PROVIDERS: PCP Internal Medicine; Visit Provider Physician Assistant
DX: J22 Unspecified acute lower respiratory infection (principal); R82.90 Unspecified abnormal findings in urine